=== PATIENT | female | born 1975 | race Hispanic/Latino ===

== ENCOUNTER 2016-05-16 11:44 | Inpatient (IN) ==
[2016-05-16] MEDS ORDERED: ACETAMINOPHEN 325 MG TABLET PO PRN (12:35)
[2016-05-16] MEDS ORDERED: PROMETHAZINE 25 MG/ML VIAL IV PRN (12:35)
[2016-05-16] MEDS ORDERED: ZOLPIDEM 5 MG TABLET PO PRN (12:35)
[2016-05-16] MEDS ORDERED: METOPROLOL SUCCINATE 25 MG TAB.XL.24H PO ONE (12:49)
[2016-05-16] MEDS ORDERED: PANTOPRAZOLE 40 MG TABLET PO ONE (12:50)
[2016-05-16] MEDS: oxyCODONE/APAP 5/325MG TABLET PO PRN ×2 (13:37→19:17)
[2016-05-16] MEDS: 0.9 % SODIUM CHLORIDE 1,000 ML IV SCH (13:40)
[2016-05-16] MEDS: DOXYCYCLINE 100 MG in DEXTROSE 5% IN WATER 100 ML IV SCH ×2 (13:42→23:45)
[2016-05-16 14:00] LABS: Mean Cell Volume 76.2 fL (80.0-100.0); Mean Corpuscular HGB Conc 31.8 g/dL (31.0-36.0); Mean Corpuscular Hemoglobin 24.2 pg (26.0-34.0); Platelet Count 514 K/mcL (140-440); RBC 4.46 M/mcL (4.00-5.20); Red Cell Distribution Width 16.1 % (11.5-14.5)
[2016-05-16 14:21] LABS: Magnesium 1.3 mg/dL (1.6-2.5); Phosphorous 3.9 mg/dL (2.7-4.5)
[2016-05-16 14:24] LABS: C-Reactive Protein 1.4 mg/dl (0.0-0.8)
[2016-05-16 14:29] LABS: ALT/SGPT 12 U/l (0-40); Albumin 3.7 gm/dL (3.2-5.2); Albumin/Globulin Ratio 0.8 (1.0-2.3); Alkaline Phosphatase 89 U/L (39-117); Blood Urea Nitrogen 9 mg/dl (6-20)
[2016-05-16] MEDS ORDERED: POTASSIUM CHLORIDE 40 MEQ in DEXTROSE 5% IN WATER 500 ML IV ONE (14:34)
[2016-05-16 14:46] LABS: Anisocytosis 1+ (NONE SEEN); Band Neutrophils % 1 % (0-10); Basophils % (Manual) 1 % (0-2); Hypochromasia 1+ (NONE SEEN); Lymphocytes % 35 % (15-49); Monocytes % (Manual) 2 % (1-9); Platelet Estimate INCREASED (NORMAL); RBC Morphology ABNORM (NORMAL); Segmented Neutrophils % 61 % (38-78)
[2016-05-16] MEDS: metroNIDAZOLE 500 MG TABLET PO SCH ×2 (17:02→21:06)
[2016-05-16] MEDS: POTASSIUM CHLORIDE 20 MEQ TABLET PO SCH (17:02)
[2016-05-16] MEDS: 0.9 % SODIUM CHLORIDE 10 ML SYRINGE IV SCH ×2 (17:03→21:07)
[2016-05-16] MEDS: HYDROmorphone 2 MG/ML SYRINGE IV PRN (17:09)
[2016-05-16] MEDS: DOCUSATE SODIUM 100 MG CAPSULE PO SCH (21:08)
[2016-05-17] MEDS: oxyCODONE/APAP 5/325MG TABLET PO PRN ×5 (00:07→19:05)
[2016-05-17] MEDS: HYDROmorphone 2 MG/ML SYRINGE IV PRN ×5 (02:55→20:12)
[2016-05-17] MEDS: metroNIDAZOLE 500 MG TABLET PO SCH ×3 (06:02→21:11)
[2016-05-17] MEDS: 0.9 % SODIUM CHLORIDE 10 ML SYRINGE IV SCH ×3 (06:02→22:41)
[2016-05-17 06:30] LABS: Basophils # (Auto) 0 K/mcL (0.0-0.3); Basophils % (Auto) 0.6 % (0.0-2.0); Eosinophils # (Auto) 0.4 K/mcL (0.0-0.7); Eosinophils % (Auto) 4.6 % (0.0-7.0); Granulocytes % (Auto) 50.7 % (38.0-78.0); Lymphocytes % (Auto) 38.2 % (15.5-49.0); Mean Cell Volume 76.6 fL (80.0-100.0); Mean Corpuscular Hemoglobin 24.5 pg (26.0-34.0); Monocytes # (Auto) 0.5 K/mcL (0.1-0.9); Monocytes % (Auto) 5.9 % (1.0-9.0); Platelet Count 397 K/mcL (140-440); RBC 4.22 M/mcL (4.00-5.20); Red Cell Distribution Width 15.6 % (11.5-14.5)
[2016-05-17 07:21] LABS: Blood Urea Nitrogen 11 mg/dl (6-20)
[2016-05-17] MEDS: LISINOPRIL 20 MG TABLET PO SCH (08:32)
[2016-05-17] MEDS: HYDROCHLOROTHIAZIDE 12.5 MG CAPSULE PO SCH (08:32)
[2016-05-17] MEDS: POTASSIUM CHLORIDE 20 MEQ TABLET PO SCH ×2 (08:33→17:37)
[2016-05-17] MEDS: DOCUSATE SODIUM 100 MG CAPSULE PO SCH ×2 (08:33→21:11)
[2016-05-17] MEDS: ENOXAPARIN 40 MG/0.4 ML SYRINGE SQ SCH (08:33)
[2016-05-17] MEDS: 0.9 % SODIUM CHLORIDE 1,000 ML IV SCH (08:33)
[2016-05-17] MEDS: DOXYCYCLINE 100 MG in DEXTROSE 5% IN WATER 100 ML IV SCH ×2 (08:37→21:10)
[2016-05-17] MEDS ORDERED: VANCOMYCIN PER PHARMACY IV ONE (14:04)
--- NOTE | 2016-05-17 14:18 | General Surgery Progress Note ---
Subjective Patient reports: feels better, still having pain, flatus, diarrhea, afebrile Narrative: Note initiated : 05/17/16 at 2:16 pm Service Date, if different from initiated Date: [] Patient: Kaya High 40 y/o F admitted on 05/16/16 for Cellulitis Of Abdominal Wall. Chief Complaint: [`patient is doing better. She has significant painwhich is controlled with IV Dilaudid and oral oxycodone. She has had four diarrheal stoolstoday. HerJP drainage isdecreasing. Thespecimento the lab yesterday was reportedly lost. For some reason the C. difficile study was also canceled] Objective Temp Pulse Resp BP Pulse Ox 97.3 F L 73 20 135/74 95 05/17/16 12:00 05/17/16 12:00 05/17/16 12:00 05/17/16 12:00 05/17/16 12:00 - Additional Data Intake & Output - Last 24 hours: Intake & Output 05/15/16 05/16/16 05/17/16 05/18/16 05:59 05:59 05:59 05:59 Intake Total 1570 / 1570 1544 / 1544 Output Total 40 / 40 32 / 32 Balance 1530 / 1530 1512 / 1512 Weight 303 lb 303 lb - Additional Exam patient appears to be resting quietly Head and neck exam unremarkable Chest clear to auscultation Heartregular rhythm no tachycardia Abdomen distended and diffusely tender with active bowel sounds. The area of skin slough is unchangedand has minimal purulence Extremities without edema lucy Neurologic exam is unremarkable - Labs 05/17/16 04:20 05/17/16 04:20 Diabetes panel 05/16/16 05/17/16 Range/Units 13:05 04:20 Sodium 141 139 (133-145) mmol/L Potassium 2.9 L* 3.5 (3.3-5.1) mmol/L Chloride 98 98 (96-108) mmol/L Carbon Dioxide 27 26 (22-30) mmol/L BUN 9 11 (6-20) mg/dl Creatinine 0.7 0.7 (0.6-1.1) mg/dl Glucose 95 84 (70-105) mg/dL Calcium 8.9 8.2 L (8.6-10.4) mg/dl AST 17 (0-37) U/l ALT 12 (0-40) U/l Alkaline Phosphatase 89 (39-117) U/L Total Protein 8.4 (5.9-8.4) gm/dL Albumin 3.7 (3.2-5.2) gm/dL Calcium panel 05/16/16 05/16/16 05/17/16 Range/Units 13:05 13:05 04:20 Calcium 8.9 8.2 L (8.6-10.4) mg/dl Phosphorus 3.9 (2.7-4.5) mg/dL Albumin 3.7 (3.2-5.2) gm/dL Pituitary panel 05/16/16 05/17/16 Range/Units 13:05 04:20 Sodium 141 139 (133-145) mmol/L Potassium 2.9 L* 3.5 (3.3-5.1) mmol/L Chloride 98 98 (96-108) mmol/L Carbon Dioxide 27 26 (22-30) mmol/L BUN 9 11 (6-20) mg/dl Creatinine 0.7 0.7 (0.6-1.1) mg/dl Glucose 95 84 (70-105) mg/dL Calcium 8.9 8.2 L (8.6-10.4) mg/dl Adrenal panel 05/16/16 05/17/16 Range/Units 13:05 04:20 Sodium 141 139 (133-145) mmol/L Potassium 2.9 L* 3.5 (3.3-5.1) mmol/L Chloride 98 98 (96-108) mmol/L Carbon Dioxide 27 26 (22-30) mmol/L BUN 9 11 (6-20) mg/dl Creatinine 0.7 0.7 (0.6-1.1) mg/dl Glucose 95 84 (70-105) mg/dL Calcium 8.9 8.2 L (8.6-10.4) mg/dl Total Bilirubin 0.4 (0.0-1.0) mg/dL AST 17 (0-37) U/l ALT 12 (0-40) U/l Alkaline Phosphatase 89 (39-117) U/L Total Protein 8.4 (5.9-8.4) gm/dL Albumin 3.7 (3.2-5.2) gm/dL Medical - PN: A/P - Time Spent With Patient Total time spent is greater than 50% in coordination of care (as documented) at patient's floor/unit and/or counseling patient: (1) Abscess of postoperative wound of abdominal wall Status: Acute Assessment and plan: we'll add vancomycin pending culture results Flagyl will bcontinued by mouth until C. difficile titers returned Disposition willbe based on her progress over the next 2 days Current Visit: Yes (2) Depression with anxiety Status: Chronic Current Visit: No (3) Obstructive sleep apnea Status: Chronic Current Visit: No (4) On anticoagulant therapy Problem details: ON ANTICOAGULANT THERAPY SINCE FEBRUARY 2015 Status: Chronic Current Visit: No (5) Pulmonary embolus Problem details: Treated with anticoagulation Status: Chronic Current Visit : No (6) Short bowel syndrome Status: Chronic Current Visit: No
[2016-05-17] MEDS: VANCOMYCIN 1,000 MG in 0.9 % SODIUM CHLORIDE 250 ML IV SCH (14:35)
[2016-05-18] MEDS: VANCOMYCIN 1,000 MG in 0.9 % SODIUM CHLORIDE 250 ML IV SCH (03:34)
[2016-05-18] MEDS: oxyCODONE/APAP 5/325MG TABLET PO PRN ×3 (03:38→13:24)
[2016-05-18] MEDS: 0.9 % SODIUM CHLORIDE 10 ML SYRINGE IV SCH ×2 (05:23→14:27)
[2016-05-18 05:43] LABS: Basophils # (Auto) 0.1 K/mcL (0.0-0.3); Basophils % (Auto) 0.7 % (0.0-2.0); Eosinophils # (Auto) 0.4 K/mcL (0.0-0.7); Granulocytes % (Auto) 60.9 % (38.0-78.0); Lymphocytes # (Auto) 2.2 K/mcL (1.5-4.8); Lymphocytes % (Auto) 28.2 % (15.5-49.0); Mean Corpuscular HGB Conc 32.2 g/dL (31.0-36.0); Mean Corpuscular Hemoglobin 24.1 pg (26.0-34.0); Monocytes # (Auto) 0.4 K/mcL (0.1-0.9); Monocytes % (Auto) 5.2 % (1.0-9.0); Platelet Count 406 K/mcL (140-440); RBC 4.42 M/mcL (4.00-5.20); Red Cell Distribution Width 15.8 % (11.5-14.5)
[2016-05-18 06:03] LABS: Blood Urea Nitrogen 9 mg/dl (6-20)
[2016-05-18] MEDS: metroNIDAZOLE 500 MG TABLET PO SCH ×2 (06:29→14:27)
[2016-05-18] MEDS: HYDROmorphone 2 MG/ML SYRINGE IV PRN (06:31)
[2016-05-18] MEDS: 0.9 % SODIUM CHLORIDE 1,000 ML IV SCH (06:37)
[2016-05-18] MEDS: DOXYCYCLINE 100 MG in DEXTROSE 5% IN WATER 100 ML IV SCH (09:07)
[2016-05-18] MEDS: ENOXAPARIN 40 MG/0.4 ML SYRINGE SQ SCH (09:11)
[2016-05-18] MEDS: POTASSIUM CHLORIDE 20 MEQ TABLET PO SCH (09:12)
[2016-05-18] MEDS: LISINOPRIL 20 MG TABLET PO SCH (09:12)
[2016-05-18] MEDS: HYDROCHLOROTHIAZIDE 12.5 MG CAPSULE PO SCH (09:12)
[2016-05-18] MEDS: DOCUSATE SODIUM 100 MG CAPSULE PO SCH (09:12)
--- NOTE | 2016-05-18 15:29 | General Surgery Progress Note ---
Subjective Patient reports: feels better, still having pain, tolerating a regular diet, flatus, diarrhea, afebrile Narrative: Note initiated : 05/18/16 at 3:26 pm Service Date, if different from initiated Date: [] Patient: Kaya High 40 y/o F admitted on 05/16/16 for Cellulitis Of Abdominal] Patient is stable. She is still having significant abdominal pain but states that it is less than at the time of admission. She is having multiple diarrheal stools but her C. difficile titer is negative. The SAMMI drainage is only growing Staphylococcus aureus This is more than likely the same Staphylococcus that was cultured 3 weeks ago. She is felt to be stable for discharge home with follow-up for pain management. Objective Temp Pulse Resp BP Pulse Ox 98.2 F 80 22 129/82 93 05/18/16 12:00 05/18/16 12:00 05/18/16 12:00 05/18/16 12:00 05/18/16 12:00 - Additional Data Intake & Output - Last 24 hours: Intake & Output 05/16/16 05/17/16 05/18/16 05/19/16 05:59 05:59 05:59 05:59 Intake Total 1570 / 1570 2869 / 2869 320 / 320 Output Total 40 / 40 208 / 208 Balance 1530 / 1530 2661 / 2661 320 / 320 Weight 303 lb 303 lb - Additional Exam HEENT is unremarkable Neck supple Chest--clear to auscultation Heart--regular rate and rhythm no murmur or gallop Abdomen--mildly distended mild diffuse tenderness; good active bowel sounds; SAMMI drainage with purulent drainage; the eschar in the left upper quadrant is beginning to separate; her skin in the midline is healing uneventfully Extremities--no peripheral edema Neurologic exam--no focal deficit - Labs 05/18/16 04:00 05/18/16 04:00 Diabetes panel 05/18/16 Range/Units 04:00 Sodium 141 (133-145) mmol/L Potassium 3.9 (3.3-5.1) mmol/L Chloride 101 (96-108) mmol/L Carbon Dioxide 24 (22-30) mmol/L BUN 9 (6-20) mg/dl Creatinine 0.7 (0.6-1.1) mg/dl Glucose 89 (70-105) mg/dL Calcium 8.3 L (8.6-10.4) mg/dl Calcium panel 05/18/16 Range/Units 04:00 Calcium 8.3 L (8.6-10.4) mg/dl Pituitary panel 05/18/16 Range/Units 04:00 Sodium 141 (133-145) mmol/L Potassium 3.9 (3.3-5.1) mmol/L Chloride 101 (96-108) mmol/L Carbon Dioxide 24 (22-30) mmol/L BUN 9 (6-20) mg/dl Creatinine 0.7 (0.6-1.1) mg/dl Glucose 89 (70-105) mg/dL Calcium 8.3 L (8.6-10.4) mg/dl Adrenal panel 05/18/16 Range/Units 04:00 Sodium 141 (133-145) mmol/L Potassium 3.9 (3.3-5.1) mmol/L Chloride 101 (96-108) mmol/L Carbon Dioxide 24 (22-30) mmol/L BUN 9 (6-20) mg/dl Creatinine 0.7 (0.6-1.1) mg/dl Glucose 89 (70-105) mg/dL Calcium 8.3 L (8.6-10.4) mg/dl Medical - PN: A/P - Time Spent With Patient Total time spent is greater than 50% in coordination of care (as documented) at patient's floor/unit and/or counseling patient: (1) Abscess of postoperative wound of abdominal wall Status: Acute Assessment and plan: patient is stable for discharge Pain will be managed with Percocet and gabapentin She will take Imodium 2 tabs every 6 hours She will follow-up in the office in one week for evaluation of her an excision She is advised to keep a written record of her drainage. Current Visit: Yes (2) Depression with anxiety Status: Chronic Current Visit: No (3) Obstructive sleep apnea Status: Chronic Current Visit: No (4) On anticoagulant therapy Problem details: ON ANTICOAGULANT THERAPY SINCE FEBRUARY 2015 Status: Chronic Current Visit: No (5) Pulmonary embolus Problem details: Treated with anticoagulation Status: Chronic Current Visit : No (6) Short bowel syndrome Status: Chronic Current Visit: No
[2016-05-18] MEDS ORDERED: VANCOMYCIN 1,500 MG in 0.9 % SODIUM CHLORIDE 500 ML IV SCH (17:00)
== END 2016-05-18 16:30 | disposition home or self-care (01) | DRG 863 ==
LOC: MEDSUR
PROVIDERS: ADMIT Family Medicine Adult Medicine; ATTEND Family Medicine Adult Medicine

== ENCOUNTER 2016-07-23 17:08 | Inpatient (IN) ==
--- NOTE | 2016-07-23 18:18 | Emergency Department Note ---
Abdominal Pain HPI - General Chief Complaint: Abdominal Pain Stated Complaint: abdominal pain Time Seen by Provider: 07/23/16 17:11 Source: patient Mode of arrival: ambulatory Limitations: no limitations - History of Present Illness HPI Narrative: Is complaining of pain to the abdominal wall, mainly has had issues with cellulitis and discharge and drainage from her abdominal incision since last January. Has been on antibiotics off and on since November 2014. The. She does complain of diarrhea. Also with usually one bowel movement per hour. Mainly she was doing fairly well until recently, was seen in the office, Dr. Phillips is following and then just the last 24 hours has noticed increased redness and drainage from her SAMMI drain. No fevers reported. Slight nausea, no vomiting. Pain is worsened also. - Related Data Home Medications Medication Instructions Recorded Confirmed buspirone 7.5 mg tablet 7.5 mg PO BID 11/26/15 07/23/16 Lactobacillus [Culturelle] 1 cap PO DAILY 02/01/16 07/23/16 Lisinopril/Hctz 20/12.5MG 1 tab PO HS 02/01/16 07/23/16 [Zestoretic 20/12.5MG] potassium chloride ER 20 mEq 20 meq PO BID 02/18/16 07/23/16 tablet,extended release(part/cryst) rivaroxaban 15 mg tablet 20 mg PO DAILY 02/18/16 07/23/16 Turmeric 1 tab PO DAILY 03/11/16 07/23/16 Gabapentin [Neurontin] 100 mg PO BID 06/06/16 07/23/16 Magnesium Amino Acid Chelate 100 mg PO DAILY 06/09/16 07/23/16 [Magnesium] Metoprolol Succinate [Toprol Xl] 25 mg PO HS 06/09/16 07/23/16 Ondansetron HCl [Zofran] 8 mg PO Q12H PRN 06/09/16 07/23/16 Spironolactone [Aldactone] 25 mg PO DAILY 06/09/16 07/23/16 lorazepam 0.5 mg tablet 0.5 mg BUCCAL BID-TID PRN 06/23/16 07/23/16 sertraline 100 mg tablet 100 mg PO QDAY 06/23/16 07/23/16 Previous Rx's Medication Instructions Recorded Loperamide [Imodium] 2 mg PO Q8H PRN #100 cap 05/18/16 calcium carbonate 500 mg calcium 500 mg PO QDAY #30 cap 06/29/16 (1,250 mg) capsule ranitidine 150 mg capsule 150 mg PO BID #60 cap 06/29/16 doxycycline monohydrate 100 mg 100 mg PO BID #30 cap 07/11/16 capsule fluconazole 200 mg tablet 200 mg PO Q24H #20 tab 07/11/16 ciprofloxacin 500 mg tablet 500 mg PO Q12H #14 tab 07/14/16 oxycodone-acetaminophen 10 mg-325 1 tab PO Q4H #90 tab MDD 6 07/21/16 mg tablet Allergies Allergy/AdvReac Type Severity Reaction Status Date / Time No Known Drug Allergies Allergy Verified 07/21/16 08:34 Review of Systems All systems ED: reviewed and negative except as stated. Abdominal Pain PMH - Past Medical History Attestation: Yes: The following information was validated with the patient. Medical history: Reports: diabetes, GERD, hypertension, pulmonary embolus, other (morbid obesity with weight loss. short-bowel syndrome. incisional hernia. Irritable bowel syndrome. Adnexal mass. Partial small bowel obstruction. ALEXANDR. Vitamin D deficiency.) Psychiatric history: Reports: anxiety, depression, other (On SSRI) [employer] history: Reports: bilateral tubal ligation Family history: Reports: no significant family history - Social History Smoking status: Never smoker Alcohol use: Reports: None Drug use: Reports: none Physical Exam - General Limitations: no limitations General appearance: alert, in no apparent distress - Head Head exam: atraumatic, normocephalic - Eye Eye exam: Present: normal appearance, PERRL, EOMI. Absent: scleral icterus - ENT ENT exam: normal exam, normal oropharynx, mucous membranes moist - Neck Neck exam: Present: normal inspection, trachea midline - Chest Chest inspection: Present: normal inspection - Respiratory Respiratory exam: Present: normal lung sounds bilaterally. Absent: respiratory distress - Cardiovascular Cardiovascular exam: Present: regular rate, normal heart sounds - Abdominal Exam Abdominal exam: Present: soft, distention, tenderness, diminished bowel sounds. Absent: guarding, rebound Abdominal tenderness: Present: suprapubic, mild - Extremities Exam Extremities exam: Present: normal inspection, full ROM - Back Exam Back exam: Present: normal inspection. Absent: CVA tenderness (R), CVA tenderness (L) - Neurological Exam Neurological exam: Present: alert, oriented X3 - Psychiatric Psychiatric exam: Present: normal affect - Skin Skin exam: Present: warm, dry, intact, rash, erythema, other (Erythema and tenderness to the periumbilical area.) Course - Reevaluation(s) Reevaluation #1: We did obtain a stool sample, she has diarrhea. She states about 1 stool per hour, is having ongoing problems with hypokalemia and thus she was given oral potassium and. We also started IV fluids. She received some pain medications, but she states her pain was still fairly significant and of note is that she just had her oxycodone refilled on and this is not holding her pain. Her ultrasound as well as her recent CT was reviewed, apparently she did have a fluid collection which was fairly substantial just one week ago which could not be verified on the ultrasound just yesterday. The. Cellulitis to the abdominal wall is new and thus raises concern that the SAMMI drain is not functioning adequately. I spoke with our hospitalist, as well as general surgeon and we discussed hospital admission to sort out whether she would need a further surgical procedure for drainage or at least IV antibiotics since the oral antibiotics are not working currently for her new a cellulitis Vital Signs Temperature 96.9 F L 07/23/16 17:10 Pulse Rate 89 07/23/16 17:10 Respiratory Rate 16 07/23/16 17:10 Blood Pressure 137/80 07/23/16 17:10 Pulse Oximetry (%) 97 07/23/16 17:10 Temperature 96.9 F L 07/23/16 17:10 Pulse Rate 89 07/23/16 20:34 Respiratory Rate 16 07/23/16 17:10 Blood Pressure 142/70 07/23/16 20:34 Pulse Oximetry (%) 98 07/23/16 20:34 Abdominal Pain - MDM Narrative Medical decision making narrative: final diagnosis is abdominal wall cellulitis, history of morbid obesity, history of diabetes, history of diarrhea, history of chronic abdominal wall drainage - Lab Data Result diagrams: 07/23/16 18:19 07/23/16 18:19 Lab Results 07/23/16 07/23/16 07/23/16 Range/Units 18:19 18:19 19:16 WBC 10.6 (4.5-11.0) K/mcL RBC 4.54 (4.00-5.20) M/mcL Hgb 10.7 L (12.0-15.0) g/dL Hct 33.4 L (36.0-48.0) % MCV 73.5 L (80.0-100.0) fL MCH 23.6 L (26.0-34.0) pg MCHC 32.0 (31.0-36.0) g/dL RDW 16.6 H (11.5-14.5) % Plt Count 349 (140-440) K/mcL MPV 8.9 (7.4-10.4) fL Gran % 64.4 (38.0-78.0) % Lymph % (Auto) 26.2 (15.5-49.0) % [place] % (Auto) 6.1 (1.0-9.0) % Eos % (Auto) 2.9 (0.0-7.0) % Baso % (Auto) 0.4 (0.0-2.0) % Gran # 6.8 (1.8-8.0) K/mcL Lymph # 2.8 (1.5-4.8) K/mcL [place] # 0.6 (0.1-0.9) K/mcL Eos # 0.3 (0.0-0.7) K/mcL Baso # 0 (0.0-0.3) K/mcL ESR 81 H (0-20) mm/hr Sodium 134 (133-145) mmol/L Potassium 2.8 L* (3.3-5.1) mmol/L Chloride 95 L (96-108) mmol/L Carbon Dioxide 26 (22-30) mmol/L Anion Gap 13.0 (8-16) BUN 11 (6-20) mg/dl Creatinine 0.8 (0.6-1.1) mg/dl GFR Calculation 92 Glucose 89 (70-105) mg/dL Calcium 8.3 L (8.6-10.4) mg/dl Total Bilirubin 0.4 (0.0-1.0) mg/dL AST 22 (0-37) U/l ALT 18 (0-40) U/l Alkaline Phosphatase 90 (39-117) U/L C-Reactive Protein (0.0-0.8) mg/dl Total Protein 7.9 (5.9-8.4) gm/dL Albumin 3.7 (3.2-5.2) gm/dL Globulin 4.2 H (2.2-3.7) gm/dL Albumin/Globulin Ratio 0.9 L (1.0-2.3) 07/23/16 Range/Units 19:16 WBC (4.5-11.0) K/mcL RBC (4.00-5.20) M/mcL Hgb (12.0-15.0) g/dL Hct (36.0-48.0) % MCV (80.0-100.0) fL MCH (26.0-34.0) pg MCHC (31.0-36.0) g/dL RDW (11.5-14.5) % Plt Count (140-440) K/mcL MPV (7.4-10.4) fL Gran % (38.0-78.0) % Lymph % (Auto) (15.5-49.0) % [place] % (Auto) (1.0-9.0) % Eos % (Auto) (0.0-7.0) % Baso % (Auto) (0.0-2.0) % Gran # (1.8-8.0) K/mcL Lymph # (1.5-4.8) K/mcL [place] # (0.1-0.9) K/mcL Eos # (0.0-0.7) K/mcL Baso # (0.0-0.3) K/mcL ESR (0-20) mm/hr Sodium (133-145) mmol/L Potassium (3.3-5.1) mmol/L Chloride (96-108) mmol/L Carbon Dioxide (22-30) mmol/L Anion Gap (8-16) BUN (6-20) mg/dl Creatinine (0.6-1.1) mg/dl GFR Calculation Glucose (70-105) mg/dL Calcium (8.6-10.4) mg/dl Total Bilirubin (0.0-1.0) mg/dL AST (0-37) U/l ALT (0-40) U/l Alkaline Phosphatase (39-117) U/L C-Reactive Protein 11.6 H (0.0-0.8) mg/dl Total Protein (5.9-8.4) gm/dL Albumin (3.2-5.2) gm/dL Globulin (2.2-3.7) gm/dL Albumin/Globulin Ratio (1.0-2.3) Disposition Clinical Impression: Abdominal pain Disposition: Xfer As Inpt ([facility]) Condition: Fair Referrals: Luly Ambriz ARNP [Primary Care Provider] -
[2016-07-23] MEDS ORDERED: LACTATED RINGERS 1,000 ML IV ONE (18:19)
[2016-07-23] MEDS ORDERED: HYDROmorphone 2 MG/ML SYRINGE IV ONE (18:19)
[2016-07-23] MEDS ORDERED: ONDANSETRON 4 MG/2 ML VIAL IV ONE (18:19)
[2016-07-23 18:37] LABS: Basophils # (Auto) 0 K/mcL (0.0-0.3); Basophils % (Auto) 0.4 % (0.0-2.0); Eosinophils # (Auto) 0.3 K/mcL (0.0-0.7); Eosinophils % (Auto) 2.9 % (0.0-7.0); Granulocytes % (Auto) 64.4 % (38.0-78.0); Lymphocytes # (Auto) 2.8 K/mcL (1.5-4.8); Lymphocytes % (Auto) 26.2 % (15.5-49.0); Mean Cell Volume 73.5 fL (80.0-100.0); Mean Corpuscular Hemoglobin 23.6 pg (26.0-34.0); Monocytes # (Auto) 0.6 K/mcL (0.1-0.9); Monocytes % (Auto) 6.1 % (1.0-9.0); Platelet Count 349 K/mcL (140-440); RBC 4.54 M/mcL (4.00-5.20); Red Cell Distribution Width 16.6 % (11.5-14.5)
[2016-07-23 19:00] LABS: ALT/SGPT 18 U/l (0-40); Albumin 3.7 gm/dL (3.2-5.2); Albumin/Globulin Ratio 0.9 (1.0-2.3); Alkaline Phosphatase 90 U/L (39-117); Blood Urea Nitrogen 11 mg/dl (6-20)
[2016-07-23] MEDS ORDERED: POTASSIUM CHLORIDE 20 MEQ TABLET PO ONE (19:00)
[2016-07-23] MEDS ORDERED: VANCOMYCIN 1,500 MG in 0.9 % SODIUM CHLORIDE 500 ML IV ONE (19:16)
[2016-07-23] MEDS ORDERED: POTASSIUM CHLORIDE 10 MEQ TABLET PO ONE (19:20)
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
[2016-07-23] MEDS ORDERED: FLUCONAZOLE 200 MG PO SCH (23:38)
[2016-07-23] MEDS ORDERED: ONDANSETRON 4 MG/2 ML VIAL IV PRN (23:38)
[2016-07-23] MEDS ORDERED: PIPERACILLIN SODIUM/TAZOBACTAM 3.375 GM VIAL IV ONE (23:38)
[2016-07-23] MEDS ORDERED: ACETAMINOPHEN 325 MG TABLET PO PRN (23:38)
[2016-07-23] MEDS ORDERED: LOPERAMIDE 2 MG CAPSULE PO PRN (23:38)
[2016-07-23] MEDS: LACTATED RINGERS 1,000 ML IV SCH (23:59)
[2016-07-24] MEDS ORDERED: oxyCODONE/APAP 10/325MG TABLET PO ONE ×2 (00:37→05:31)
[2016-07-24] MEDS ORDERED: FLUCONAZOLE 100 MG TABLET PO ONE (00:38)
[2016-07-24] MEDS: oxyCODONE/APAP 10/325MG TABLET PO SCH ×2 (00:39→05:45)
[2016-07-24] MEDS ORDERED: MAGNESIUM SULFATE 2 GM/50 ML BAG IV ONE ×3 (01:37→08:51)
[2016-07-24] MEDS ORDERED: POTASSIUM CHLORIDE 40 MEQ in DEXTROSE 5% IN WATER 500 ML IV ONE ×2 (01:37→17:18)
[2016-07-24] MEDS ORDERED: POTASSIUM CHLORIDE 20 MEQ/10 ML VIAL IV ONE ×2 (02:24→18:59)
[2016-07-24] MEDS ORDERED: PIPERACILLIN SODIUM/TAZOBACTAM 3.375 GM VIAL IV ONE (05:08)
[2016-07-24] MEDS: PIPERACILLIN SODIUM/TAZOBACTAM 3.375 GM in DEXTROSE 5% IN WATER 50 ML IV SCH ×5 (05:40→23:20)
[2016-07-24 05:45] LABS: Basophils # (Auto) 0 K/mcL (0.0-0.3); Basophils % (Auto) 0.4 % (0.0-2.0); Eosinophils # (Auto) 0.3 K/mcL (0.0-0.7); Eosinophils % (Auto) 3.1 % (0.0-7.0); Granulocytes % (Auto) 64.5 % (38.0-78.0); Lymphocytes # (Auto) 2.3 K/mcL (1.5-4.8); Lymphocytes % (Auto) 26.8 % (15.5-49.0); Mean Corpuscular HGB Conc 32.4 g/dL (31.0-36.0); Monocytes # (Auto) 0.4 K/mcL (0.1-0.9); Monocytes % (Auto) 5.2 % (1.0-9.0); Platelet Count 294 K/mcL (140-440); RBC 4.08 M/mcL (4.00-5.20); Red Cell Distribution Width 16.7 % (11.5-14.5)
[2016-07-24 06:20] LABS: ALT/SGPT 16 U/l (0-40); Albumin 3.5 gm/dL (3.2-5.2); Alkaline Phosphatase 87 U/L (39-117); Bilirubin,Direct < 0.2 mg/dL (0.0-0.3); Blood Urea Nitrogen 8 mg/dl (6-20); Gamma Glutamyl Transpeptidase 53 U/L (5-36); Magnesium 1.9 mg/dL (1.6-2.5); Phosphorous 2.8 mg/dL (2.7-4.5); Uric Acid 6.6 mg/dL (2.5-8.0)
[2016-07-24] MEDS ORDERED: POTASSIUM CHLORIDE 20 MEQ TABLET PO SCH (08:00)
--- NOTE | 2016-07-24 08:09 | Ultrasound Report ---
CLINICAL INFORMATION: Post anterior hernia repair. Postoperative seroma was drained percutaneously TECHNIQUE: Routine ultrasound of the anterior abdominal wall COMPARISON: Previous examination dated 07/22/2016 FINDINGS: There is a drainage catheter near the umbilicus, unchanged Findings consistent with anterior abdominal wall edema or scarring. Irregular hypoechoic abnormalities are unchanged. No well-defined discrete fluid collection or focal abscess. IMPRESSION: 1. No interval change since 07/22/2016. 2. No well-defined focal abscess. Interpreted and Authenticated by: Romel Goodman 07/24/16
--- NOTE | 2016-07-24 08:18 | General Surgery Progress Note ---
Subjective Patient reports: no new complaints, still having pain, voiding w/o difficulty, other (really no difference subjectively overnight.) Narrative: Note initiated : 07/24/16 at 8:16 am Service Date, if different from initiated Date: [] Patient: Kaya High 41 y/o F admitted on 07/23/16 for abdominal pain. Chief Complaint: [] Objective Temp Pulse Resp BP Pulse Ox 98.7 F 69 20 119/73 93 07/24/16 03:38 07/24/16 03:38 07/24/16 03:38 07/24/16 03:38 07/24/16 03:38 - Additional Data Intake & Output - Last 24 hours: Intake & Output 07/22/16 07/23/16 07/24/16 07/25/16 05:59 05:59 05:59 05:59 Intake Total 358 / 1858 Output Total 100 / 100 Balance 258 / 1758 - General physical appearance no distress, obese - Respiratory normal expansion, normal respiratory effort, clear to auscultation - Cardiovascular Cardiovascular exam: Present: normal rate and rhythm - Abdomen surgical scars (exam essentially unchanged from my consult note last night - PERHAPs a little less erythema) - Labs 07/24/16 Unknown 07/24/16 Unknown Diabetes panel 07/24/16 Range/Units Unknown Sodium 138 (133-145) mmol/L Potassium 2.8 L* (3.3-5.1) mmol/L Chloride 99 (96-108) mmol/L Carbon Dioxide 27 (22-30) mmol/L BUN 8 (6-20) mg/dl Creatinine 0.7 (0.6-1.1) mg/dl Glucose 93 (70-105) mg/dL Calcium 8.1 L (8.6-10.4) mg/dl AST 20 (0-37) U/l ALT 16 (0-40) U/l Alkaline Phosphatase 87 (39-117) U/L Total Protein 7.1 (5.9-8.4) gm/dL Albumin 3.5 (3.2-5.2) gm/dL Triglycerides 111 (<150) mg/dl Calcium panel 07/24/16 Range/Units Unknown Calcium 8.1 L (8.6-10.4) mg/dl Phosphorus 2.8 (2.7-4.5) mg/dL Albumin 3.5 (3.2-5.2) gm/dL Pituitary panel 07/24/16 Range/Units Unknown Sodium 138 (133-145) mmol/L Potassium 2.8 L* (3.3-5.1) mmol/L Chloride 99 (96-108) mmol/L Carbon Dioxide 27 (22-30) mmol/L BUN 8 (6-20) mg/dl Creatinine 0.7 (0.6-1.1) mg/dl Glucose 93 (70-105) mg/dL Calcium 8.1 L (8.6-10.4) mg/dl Adrenal panel 07/24/16 Range/Units Unknown Sodium 138 (133-145) mmol/L Potassium 2.8 L* (3.3-5.1) mmol/L Chloride 99 (96-108) mmol/L Carbon Dioxide 27 (22-30) mmol/L BUN 8 (6-20) mg/dl Creatinine 0.7 (0.6-1.1) mg/dl Glucose 93 (70-105) mg/dL Calcium 8.1 L (8.6-10.4) mg/dl Total Bilirubin 0.8 (0.0-1.0) mg/dL AST 20 (0-37) U/l ALT 16 (0-40) U/l Alkaline Phosphatase 87 (39-117) U/L Total Protein 7.1 (5.9-8.4) gm/dL Albumin 3.5 (3.2-5.2) gm/dL Medical - PN: A/P - Time Spent With Patient Total time spent is greater than 50% in coordination of care (as documented) at patient's floor/unit and/or counseling patient: 15 - 24 minutes (1) Abdominal wall cellulitis Problem details: Continue current IV AB No new recommendations Status: Acute Current Visit: Yes (2) History of hernia repair Problem details: 02/05/2016-ventral open Status: Chronic Current Visit: No (3) History of cholecystectomy Status: Chronic Current Visit: No (4) History of exploratory laparotomy Problem details: with extensive lysis of adhesion and resection of left ovarian mass and appendectomy Status: Chronic Current Visit: No (5) Hypokalemia Status: Acute Current Visit: No (6) Morbid obesity Status: Chronic Current Visit: No (7) UTI (urinary tract infection) Status: Acute Current Visit: No
[2016-07-24] MEDS ORDERED: POTASSIUM CHLORIDE 40 MEQ in DEXTROSE 5% IN WATER 250 ML IV ONE (08:44)
[2016-07-24] MEDS ORDERED: SPIRONOLACTONE 25 MG TABLET PO SCH (09:00)
[2016-07-24] MEDS ORDERED: VANCOMYCIN PER PHARMACY IV SCH (09:00)
[2016-07-24] MEDS: VANCOMYCIN 1,500 MG in 0.9 % SODIUM CHLORIDE 500 ML IV SCH ×2 (09:27→21:31)
[2016-07-24] MEDS ORDERED: LORazepam 0.5 MG TABLET PO PRN (09:48)
[2016-07-24] MEDS: FLUCONAZOLE 100 MG TABLET PO SCH (09:52)
[2016-07-24] MEDS: LACTOBACILLUS 1 CAPSULE PO SCH (09:52)
[2016-07-24] MEDS: busPIRone 5 MG TABLET PO SCH ×2 (09:52→20:43)
[2016-07-24] MEDS: SERTRALINE 50 MG TABLET PO SCH (09:52)
[2016-07-24] MEDS: CALCIUM CARBONATE 500 MG TAB.CHEW CHEWED SCH (09:53)
[2016-07-24] MEDS: FAMOTIDINE 20 MG TABLET PO SCH ×2 (09:53→20:43)
[2016-07-24] MEDS: LISINOPRIL 20 MG TABLET PO SCH (09:53)
[2016-07-24] MEDS: oxyCODONE/APAP 10/325MG TABLET PO PRN ×3 (09:53→18:34)
[2016-07-24] MEDS: GABAPENTIN 100 MG CAPSULE PO SCH ×2 (09:53→20:43)
--- NOTE | 2016-07-24 10:00 | Internal Med Progress Note ---
Medical - PN: Subj Patient information: Note initiated : 07/24/16 at 10:00 am Service Date, if different from initiated Date: [] Patient: Kaya High 41 y/o F admitted on 07/23/16 for abdominal pain. Chief Complaint: [] Interval history: 07/23: Ms. High is a 41 year old female who presents with abdominal pain, nausea and vomiting x 2 weeks, The patient has h/o Bowel obstruction / ventral hernia, morbid obesity, and is followed by Dr Phillips as outpatient. The patient has had 2 surgeries last year for her bowel ischemia and ventral hernia. The patient apparently early this year developed a abscess in the ant abdominal wall , which is being managed by PO antibiotics and drain by Dr Phillips. The patient notes that she was not feeling well and had increased abdominal pain x 2 weeks, but CT done 1 week ago was showing improving abcess. The patient over last few days notes worsening redness in the ant abdominal wall, nausea and vomiting as well as chr diarrhea. Abdominal wall pain is associated with fever and chills. Pain worse with activity better with pain meds and rest. The patient was here yesterday with abdominal pain, the usg done did not show any collection, the patient reports however that the region of erythema has doubled since yesterday and she therefore came in. She is on ciprofloxacin as well as doxycycline as outpatient. diflucan for barry. I reviewed her wound cultures available, She has mssa , peptostreptococcus and barry in the wound cultures. The patient also has h/o 2 PE post surgery in the past and is on anticoagulation , labs in ther ER showed low K and low Mg, The patient has these chronically and is followed by Dr Kay in the clinic, she is on chr mg and K supplements. 07/24: Pt seen examined, no acute overnight events, pt is doing well lying comfortably in bed, notes pain is better in the Ant abdominal wall,k USG neg for fluids. COntinue iv vanco and zosyn for now, await cultures, appreciate surgery input. Plan Pertinent ROS: Denies headache, dizziness Denies chest pain, palpitations Denies cough or shortness of breath Abdominal pain present at the site of cellutlitis she denies nausea or vomiting. - Constitutional Vitals: Vital Signs Temp Pulse Resp BP Pulse Ox 98.7 F 69 20 119/73 93 07/24/16 03:38 03/19/17 03:38 07/24/16 03:38 07/24/16 03:38 07/24/16 03:38 Period Temp Pulse Resp BP Sys/Means Pulse Ox Last 24 Hr 98.6 F-98.7 F 69-82 20-22 119-138/69-73 93-96 Intake and Output 07/23/16 07/24/16 07/24/16 21:59 05:59 13:59 Intake Total 358 / 358 Output Total 100 / 100 Balance 258 / 258 Intake & Output: Intake & Output 07/23/16 07/24/16 07/24/16 21:59 05:59 13:59 Intake Total 358 / 358 Output Total 100 / 100 Balance 258 / 258 Intake: Oral 358 / 358 Output: Void Amount 100 / 100 Other: # Voids 3 Exam: Constitutional; Afebrile, cooperative, alert, not in distress. Eyes- No icterus, Pupils equal, reactive, No periorbital swelling Ears- Ext ear normal, hearing normal to conversation. Neck- Midline trachea, supple Respiratory system: Air Entry equal on both sides, No crackles or wheezing, no rhonchi. CVS- Rate rhythm regular, S1,S2 heard, no gallop, no rub. Abdomen- Soft nontender abdomen, no organomegaly, no tenderness, no guarding or rigidity, wounds covered with dressings, the area of erythema is still darian same but the tenderness is improved. 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 Medical - PN: Obj Da - Labs CBC & Chem 7: 07/24/16 Unknown 07/24/16 Unknown Labs: Abnormal Lab Results 07/24/16 07/24/16 Unknown Unknown Hgb 9.8 L Hct 30.2 L MCV 74.0 L MCH 24.0 L RDW 16.7 H Potassium 2.8 L* Calcium 8.1 L GGT 53 H Meds: Medications Acetaminophen (Tylenol) 650 mg PO Q6HP PRN PRN Reason: PAIN/FEVER > 101 Amiloride HCl (Amiloride) 5 mg PO DAILY [facility] Buspirone HCl (Buspar) 7.5 mg PO BID [facility] Last Admin: 07/24/16 09:52 Dose: 7.5 mg Calcium Carbonate/Glycine (Tums) 500 mg CHEWED DAILY [facility] Last Admin: 07/24/16 09:53 Dose: 500 mg Famotidine (Pepcid) 20 mg PO BID [facility] Last Admin: 07/24/16 09:53 Dose: 20 mg Fluconazole (Diflucan) 200 mg PO DAILY [facility] Last Admin: 07/24/16 09:52 Dose: 200 mg Gabapentin (Neurontin) 100 mg PO BID [facility] Last Admin: 07/24/16 09:53 Dose: 100 mg Lactated Ringer's (Lactated Ringers) 1,000 mls @ 75 mls/hr IV .[id number] [facility] Last Admin: 07/23/16 23:59 Dose: 75 mls/hr Piperacillin Sod/Tazobactam (Sod 3.375 gm/ Dextrose) 50 mls @ 100 mls/hr IV Q6H [facility] Last Admin: 07/24/16 05:40 Dose: Not Given Vancomycin HCl 1,500 mg/ (Sodium Chloride) 500 mls @ 333.3 mls/hr IV Q12H [facility] Last Admin: 07/24/16 09:27 Dose: 333.3 mls/hr Lactobacillus Rhamnosus (Culturelle) 1 cap PO DAILY [facility] Last Admin: 07/24/16 09:52 Dose: 1 cap Lisinopril (Zestril) 20 mg PO DAILY [facility] Last Admin: 07/24/16 09:53 Dose: 20 mg Loperamide HCl (Imodium) 2 mg PO Q8HP PRN PRN Reason: Diarrhea Lorazepam (Ativan) 0.5 mg PO Q8-12HP PRN PRN Reason: Anxiety Metoprolol Succinate (Toprol Xl) 25 mg PO HS [facility] Ondansetron HCl (Zofran) 4 mg IV Q4HP PRN PRN Reason: Nausea And Vomiting Oxycodone/Acetaminophen (Percocet 10-325mg) 1 tab PO Q4HP PRN PRN Reason: Pain Last Admin: 07/24/16 09:53 Dose: 1 tab Potassium Chloride (Kdur) 40 meq PO BIDCC [facility] Rivaroxaban (Xarelto) 20 mg PO QPMCC [facility] Sertraline HCl (Zoloft) 100 mg PO DAILY [facility] Last Admin: 07/24/16 09:52 Dose: 100 mg Vancomycin HCl (Vancomycin Per Pharmacy) 1 order IV UD [facility] Medical - PN: A/P - Time Spent With Patient Total time spent is greater than 50% in coordination of care (as documented) at patient's floor/unit and/or counseling patient: (1) Chronic diarrhea Status: Acute Current Visit: Yes (2) Abdominal wall cellulitis Problem details: Continue current IV AB No new recommendations Status: Acute Current Visit: Yes (3) Hypokalemia Status: Acute Current Visit: No (4) Hypomagnesemia Status: Acute Current Visit: No - Narrative A/P Narrative: Abdominal wall cellulitis- Failed out pt treatment, getting worse with spreading erythema, as well as increased output from the drain. Surgery consult appreciated. IV antibiotics. USG abdomen. Will treat with vanco and zosyn till cultures are back. Pt will need atleast 14 days of treatment. I suspect that the barry is a contaminant in the drain, none the less the patient is on diflucan as outpatient, will continue same. Hypokalemia- chr in nature, due to diarrhea as well as hypomagnesemia. Mg levels are 1.9, replace orally and IV, d/c hctz and use only lisinopril 20mg instead of lisinopril hctz combo. Stop Aldactone and start on amiloride as per nephrology plan note, I reviewed this with Dr Kay today. Hypomagnesemia mg 1.9 today likely Due to GI losses, , Replace IV, follow up with nephrology as outpatient. Urine mg is < 1.4. FENA MG cannot be calculated , but it seems less than 2 h/p PE on therapeutic anticoagulation. Diet Regular Activity as tolerated. Code full Medical - PN: Qual - VTE Deep Vein Thrombosis/Pulmonary Embolism Present on Admission: No
[2016-07-24] MEDS: LACTATED RINGERS 1,000 ML IV SCH (14:35)
[2016-07-24] MEDS ORDERED: POTASSIUM CHLORIDE 20 MEQ TABLET PO ONE (14:45)
[2016-07-24 16:44] LABS: Blood Urea Nitrogen 7 mg/dl (6-20)
[2016-07-24] MEDS ORDERED: aMILoride 5 MG TABLET PO ONE (17:19)
[2016-07-24] MEDS ORDERED: RIVAROXABAN 20 MG TABLET PO SCH (17:30)
[2016-07-24] MEDS: POTASSIUM CHLORIDE 20 MEQ TABLET PO SCH (18:26)
[2016-07-24] MEDS ORDERED: METOPROLOL SUCCINATE 25 MG TAB.XL.24H PO SCH (21:00)
[2016-07-24] MEDS ORDERED: HYDROmorphone 2 MG/ML SYRINGE IV PRN (21:46)
[2016-07-24] MEDS ORDERED: HYDROmorphone 2 MG/ML SYRINGE ONE (22:47)
[2016-07-25] MEDS: oxyCODONE/APAP 10/325MG TABLET PO PRN ×5 (00:05→23:18)
[2016-07-25] MEDS ORDERED: HYDROmorphone 2 MG/ML SYRINGE ONE (03:50)
[2016-07-25] MEDS: PIPERACILLIN SODIUM/TAZOBACTAM 3.375 GM in DEXTROSE 5% IN WATER 50 ML IV SCH ×3 (05:16→18:09)
[2016-07-25 06:01] LABS: Basophils # (Auto) 0 K/mcL (0.0-0.3); Basophils % (Auto) 0.6 % (0.0-2.0); Eosinophils # (Auto) 0.4 K/mcL (0.0-0.7); Granulocytes % (Auto) 62.8 % (38.0-78.0); Lymphocytes # (Auto) 1.8 K/mcL (1.5-4.8); Lymphocytes % (Auto) 25.4 % (15.5-49.0); Mean Cell Volume 74.8 fL (80.0-100.0); Mean Corpuscular HGB Conc 31.6 g/dL (31.0-36.0); Mean Corpuscular Hemoglobin 23.6 pg (26.0-34.0); Monocytes # (Auto) 0.4 K/mcL (0.1-0.9); Monocytes % (Auto) 6.2 % (1.0-9.0); Platelet Count 286 K/mcL (140-440); RBC 3.65 M/mcL (4.00-5.20); Red Cell Distribution Width 17.5 % (11.5-14.5)
[2016-07-25 06:17] LABS: ALT/SGPT 12 U/l (0-40); Albumin/Globulin Ratio 0.9 (1.0-2.3); Alkaline Phosphatase 77 U/L (39-117); Bilirubin,Direct < 0.2 mg/dL (0.0-0.3); Blood Urea Nitrogen 7 mg/dl (6-20); Gamma Glutamyl Transpeptidase 46 U/L (5-36); Magnesium 1.7 mg/dL (1.6-2.5); Phosphorous 2.8 mg/dL (2.7-4.5); Uric Acid 4.5 mg/dL (2.5-8.0)
--- NOTE | 2016-07-25 08:10 | General Surgery Progress Note ---
Subjective Patient reports: feels better, tolerating a regular diet, afebrile Narrative: Note initiated : 07/25/16 at 8:09 am Service Date, if different from initiated Date: [] Patient: Kaya High 41 y/o F admitted on 07/23/16 for abdominal pain. Chief Complaint: [] Objective Temp Pulse Resp BP Pulse Ox 96.8 F L 83 16 138/85 96 07/25/16 07:53 07/25/16 07:53 07/25/16 07:53 07/25/16 07:53 07/25/16 07:53 - Additional Data Intake & Output - Last 24 hours: Intake & Output 07/23/16 07/24/16 07/25/16 07/26/16 05:59 05:59 05:59 05:59 Intake Total 358 / 1858 5810 / 5810 50 / 50 Output Total 100 / 100 1280 / 1280 575 / 575 Balance 258 / 1758 4530 / 4530 -525 / -525 Weight 300 lb 8 oz - Abdomen soft (redness markedly diminished - less fela-umbilical induration) - Labs 07/25/16 03:40 07/25/16 03:40 Diabetes panel 07/24/16 07/25/16 Range/Units 15:37 03:40 Sodium 138 139 (133-145) mmol/L Potassium 3.1 L 3.8 (3.3-5.1) mmol/L Chloride 100 102 (96-108) mmol/L Carbon Dioxide 26 25 (22-30) mmol/L BUN 7 7 (6-20) mg/dl Creatinine 0.6 0.6 (0.6-1.1) mg/dl Glucose 105 95 (70-105) mg/dL Calcium 7.9 L 8.1 L (8.6-10.4) mg/dl AST 15 (0-37) U/l ALT 12 (0-40) U/l Alkaline Phosphatase 77 (39-117) U/L Total Protein 6.4 (5.9-8.4) gm/dL Albumin 3.0 L (3.2-5.2) gm/dL Triglycerides 114 (<150) mg/dl Calcium panel 07/24/16 07/25/16 Range/Units 15:37 03:40 Calcium 7.9 L 8.1 L (8.6-10.4) mg/dl Phosphorus 2.8 (2.7-4.5) mg/dL Albumin 3.0 L (3.2-5.2) gm/dL Pituitary panel 07/24/16 07/25/16 Range/Units 15:37 03:40 Sodium 138 139 (133-145) mmol/L Potassium 3.1 L 3.8 (3.3-5.1) mmol/L Chloride 100 102 (96-108) mmol/L Carbon Dioxide 26 25 (22-30) mmol/L BUN 7 7 (6-20) mg/dl Creatinine 0.6 0.6 (0.6-1.1) mg/dl Glucose 105 95 (70-105) mg/dL Calcium 7.9 L 8.1 L (8.6-10.4) mg/dl Adrenal panel 07/24/16 07/25/16 Range/Units 15:37 03:40 Sodium 138 139 (133-145) mmol/L Potassium 3.1 L 3.8 (3.3-5.1) mmol/L Chloride 100 102 (96-108) mmol/L Carbon Dioxide 26 25 (22-30) mmol/L BUN 7 7 (6-20) mg/dl Creatinine 0.6 0.6 (0.6-1.1) mg/dl Glucose 105 95 (70-105) mg/dL Calcium 7.9 L 8.1 L (8.6-10.4) mg/dl Total Bilirubin 0.3 (0.0-1.0) mg/dL AST 15 (0-37) U/l ALT 12 (0-40) U/l Alkaline Phosphatase 77 (39-117) U/L Total Protein 6.4 (5.9-8.4) gm/dL Albumin 3.0 L (3.2-5.2) gm/dL Medical - PN: A/P - Time Spent With Patient Total time spent is greater than 50% in coordination of care (as documented) at patient's floor/unit and/or counseling patient: 15 - 24 minutes (1) Abdominal wall cellulitis Problem details: Continue current IV AB No new recommendations Status: Acute Current Visit: Yes (2) History of hernia repair Problem details: 02/05/2016-ventral open Status: Chronic Current Visit: No (3) History of cholecystectomy Status: Chronic Current Visit: No (4) History of exploratory laparotomy Problem details: with extensive lysis of adhesion and resection of left ovarian mass and appendectomy Status: Chronic Current Visit: No (5) Hypokalemia Status: Acute Current Visit: No (6) Morbid obesity Status: Chronic Current Visit: No (7) UTI (urinary tract infection) Status: Acute Current Visit: No
[2016-07-25] MEDS ORDERED: aMILoride 5 MG TABLET PO SCH (09:00)
[2016-07-25] MEDS ORDERED: MAGNESIUM OXIDE 400 MG TABLET PO SCH (09:00)
[2016-07-25] MEDS: LACTATED RINGERS 1,000 ML IV SCH (09:03)
[2016-07-25] MEDS: CALCIUM CARBONATE 500 MG TAB.CHEW CHEWED SCH (09:04)
[2016-07-25] MEDS: LISINOPRIL 20 MG TABLET PO SCH (09:04)
[2016-07-25] MEDS: POTASSIUM CHLORIDE 20 MEQ TABLET PO SCH ×2 (09:04→18:08)
[2016-07-25] MEDS: busPIRone 5 MG TABLET PO SCH ×2 (09:04→20:49)
[2016-07-25] MEDS: FAMOTIDINE 20 MG TABLET PO SCH ×2 (09:05→20:49)
[2016-07-25] MEDS: SERTRALINE 50 MG TABLET PO SCH (09:05)
[2016-07-25] MEDS: GABAPENTIN 100 MG CAPSULE PO SCH ×2 (09:05→20:49)
[2016-07-25] MEDS: FLUCONAZOLE 100 MG TABLET PO SCH (09:05)
[2016-07-25] MEDS: LACTOBACILLUS 1 CAPSULE PO SCH (09:06)
--- NOTE | 2016-07-25 09:44 | Internal Med Progress Note ---
Medical - PN: Subj Patient information: Note initiated : 07/25/16 at 9:42 am Service Date, if different from initiated Date: [] Patient: Kaya High 41 y/o F admitted on 07/23/16 for Abd Pain/Abd Wall Cellulitis, Chronic Diarrhea. Chief Complaint: [] Interval history: 07/23: Ms. High is a 41 year old female who presents with abdominal pain, nausea and vomiting x 2 weeks, The patient has h/o Bowel obstruction / ventral hernia, morbid obesity, and is followed by Dr Phillips as outpatient. The patient has had 2 surgeries last year for her bowel ischemia and ventral hernia. The patient apparently early this year developed a abscess in the ant abdominal wall , which is being managed by PO antibiotics and drain by Dr Phillips. The patient notes that she was not feeling well and had increased abdominal pain x 2 weeks, but CT done 1 week ago was showing improving abcess. The patient over last few days notes worsening redness in the ant abdominal wall, nausea and vomiting as well as chr diarrhea. Abdominal wall pain is associated with fever and chills. Pain worse with activity better with pain meds and rest. The patient was here yesterday with abdominal pain, the usg done did not show any collection, the patient reports however that the region of erythema has doubled since yesterday and she therefore came in. She is on ciprofloxacin as well as doxycycline as outpatient. diflucan for barry. I reviewed her wound cultures available, She has mssa , peptostreptococcus and barry in the wound cultures. The patient also has h/o 2 PE post surgery in the past and is on anticoagulation , labs in ther ER showed low K and low Mg, The patient has these chronically and is followed by Dr Kay in the clinic, she is on chr mg and K supplements. 07/24: Pt seen examined, no acute overnight events, pt is doing well lying comfortably in bed, notes pain is better in the Ant abdominal wall,k USG neg for fluids. COntinue iv vanco and zosyn for now, await cultures, appreciate surgery input. 07/25: Pt seen examined, no acute overnight events, K is much better, Mg is ok, Pt has Mg loss due to Gi losses, low urinary excretion of Mg. Pt is tolerating po diet well has chr diarrhea, Cdiff is negative She continues to be on vanco and zosyn for now, for Ant abdominal wall cellutlitis Pt microbiology is still pending, can d/c home once microbiology is back on appropriate ABX, may need picc if she has resistant bugs. Pertinent ROS: Denies headache, dizziness Denies chest pain, palpitations Denies cough or shortness of breath Denies abdominal pain, nausea or vomiting. - Constitutional Vitals: Vital Signs Temp Pulse Resp BP Pulse Ox 96.8 F L 83 16 138/85 96 07/25/16 07:53 07/25/16 07:53 07/25/16 07:53 07/25/16 07:53 07/25/16 07:53 Period Temp Pulse Resp BP Sys/Means Pulse Ox Last 24 Hr 96.8 F-98.8 F 67-87 16-20 109-138/58-85 93-98 Intake and Output 07/24/16 07/25/16 07/25/16 21:59 05:59 13:59 Intake Total 1640 / 1640 2620 / 2620 1050 / 1050 Output Total 350 / 350 430 / 430 575 / 575 Balance 1290 / 1290 2190 / 2190 475 / 475 Weight 300 lb 8 oz Intake & Output: Intake & Output 07/24/16 07/25/16 07/25/16 21:59 05:59 13:59 Intake Total 1640 / 1640 2620 / 2620 1050 / 1050 Output Total 350 / 350 430 / 430 575 / 575 Balance 1290 / 1290 2190 / 2190 475 / 475 Weight 300 lb 8 oz Intake: IV 50 / 50 1070 / 1070 1050 / 1050 Lactated Ringers 1,000 ml 1000 / 1000 @ 75 mls/hr IV .[id number] [facility] Rx#:[id number] Dextrose 5% in Water 50 50 / 50 50 / 50 50 / 50 ml @ 100 mls/hr IV Q6H [facility] with Zosyn 3.375 gm Rx#:[id number] Sodium Chloride 0.9% 500 500 / 500 ml @ 333.3 mls/hr IV Q12H [facility] with Vancomycin 1, 500 mg Rx#:[id number] Oral 1590 / 1590 1050 / 1050 Other 500 / 500 Output: Drainage 30 / 30 Right Abdomen 30 / 30 Void Amount 350 / 350 400 / 400 575 / 575 Other: Meal Dinner snack Percent of Meal Consumed 50% 100% Feeding Ability Assist with Tray Set Up Assist with Tray Set Up # Voids 1 # Bowel Movements 1 Exam: Constitutional; Afebrile, cooperative, alert, not in distress. Eyes- No icterus, Pupils equal, reactive, No periorbital swelling Ears- Ext ear normal, hearing normal to conversation. Neck- Midline trachea, supple Respiratory system: Air Entry equal on both sides, No crackles or wheezing, no rhonchi. CVS- Rate rhythm regular, S1,S2 heard, no gallop, no rub. Abdomen- soft, area or erythema much improved, burn wound actively oozing, tenderness only region just above umbilicus. 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 Medical - PN: Obj Da - Labs CBC & Chem 7: 07/25/16 03:40 07/25/16 03:40 Labs: Abnormal Lab Results 07/25/16 07/25/16 07/24/16 03:40 03:40 Unknown RBC 3.65 L Hgb 8.6 L Hct 27.3 L MCV 74.8 L MCH 23.6 L RDW 17.5 H Potassium 2.8 L* Calcium 8.1 L 8.1 L GGT 46 H 53 H Albumin 3.0 L Albumin/Globulin Ratio 0.9 L 07/24/16 07/24/16 Unknown 15:37 RBC Hgb 9.8 L Hct 30.2 L MCV 74.0 L MCH 24.0 L RDW 16.7 H Potassium 3.1 L Calcium 7.9 L GGT Albumin Albumin/Globulin Ratio Meds: Medications Acetaminophen (Tylenol) 650 mg PO Q6HP PRN PRN Reason: PAIN/FEVER > 101 Amiloride HCl (Amiloride) 5 mg PO DAILY [facility] Last Admin: 07/25/16 09:06 Dose: 5 mg Buspirone HCl (Buspar) 7.5 mg PO BID [facility] Last Admin: 07/25/16 09:04 Dose: 7.5 mg Calcium Carbonate/Glycine (Tums) 500 mg CHEWED DAILY [facility] Last Admin: 07/25/16 09:04 Dose: 500 mg Famotidine (Pepcid) 20 mg PO BID [facility] Last Admin: 07/25/16 09:05 Dose: 20 mg Fluconazole (Diflucan) 200 mg PO DAILY [facility] Last Admin: 07/25/16 09:05 Dose: 200 mg Gabapentin (Neurontin) 100 mg PO BID [facility] Last Admin: 07/25/16 09:05 Dose: 100 mg Hydromorphone HCl (Dilaudid) 0.5 mg IV Q4-6HP PRN PRN Reason: Pain Lactated Ringer's (Lactated Ringers) 1,000 mls @ 75 mls/hr IV .[id number] [facility] Last Admin: 07/25/16 09:03 Dose: 75 mls/hr Piperacillin Sod/Tazobactam (Sod 3.375 gm/ Dextrose) 50 mls @ 100 mls/hr IV Q6H [facility] Last Infusion: 07/25/16 06:02 Dose: Infused Vancomycin HCl 1,500 mg/ (Sodium Chloride) 500 mls @ 333.3 mls/hr IV Q12H [facility] Last Infusion: 07/24/16 23:05 Dose: Infused Lactobacillus Rhamnosus (Culturelle) 1 cap PO DAILY [facility] Last Admin: 07/25/16 09:06 Dose: 1 cap Lisinopril (Zestril) 20 mg PO DAILY [facility] Last Admin: 07/25/16 09:04 Dose: 20 mg Loperamide HCl (Imodium) 2 mg PO Q8HP PRN PRN Reason: Diarrhea Last Admin: 07/24/16 20:55 Dose: 2 mg Lorazepam (Ativan) 0.5 mg PO Q8-12HP PRN PRN Reason: Anxiety Last Admin: 07/24/16 22:51 Dose: 0.5 mg Magnesium Oxide (Magnesium Oxide) 400 mg PO BID [facility] Last Admin: 07/25/16 09:05 Dose: 400 mg Metoprolol Succinate (Toprol Xl) 25 mg PO HS [facility] Last Admin: 07/24/16 20:43 Dose: 25 mg Ondansetron HCl (Zofran) 4 mg IV Q4HP PRN PRN Reason: Nausea And Vomiting Last Admin: 07/25/16 05:20 Dose: 4 mg Oxycodone/Acetaminophen (Percocet 10-325mg) 1 tab PO Q4HP PRN PRN Reason: Pain Last Admin: 07/25/16 09:05 Dose: 1 tab [facility] Admin: 07/25/16 09:04 Dose: 40 meq Rivaroxaban (Xarelto) 20 mg PO QPMCC [facility] Last Admin: 07/24/16 20:17 Dose: 20 mg Sertraline HCl (Zoloft) 100 mg PO DAILY [facility] Last Admin: 07/25/16 09:05 Dose: 100 mg Silver Sulfadiazine (Silvadene) 1 dose TOPICAL DAILY [facility] Vancomycin HCl (Vancomycin Per Pharmacy) 1 order IV UD [facility] Medical - PN: A/P - Time Spent With Patient Total time spent is greater than 50% in coordination of care (as documented) at patient's floor/unit and/or counseling patient: (1) Chronic diarrhea Status: Acute Current Visit: Yes (2) Abdominal wall cellulitis Problem details: Continue current IV AB No new recommendations Status: Acute Current Visit: Yes (3) Hypokalemia Status: Acute Current Visit: No (4) Hypomagnesemia Status: Acute Current Visit: No - Narrative A/P Narrative: Abdominal wall cellulitis- Failed out pt treatment, erythema improving, Surgery consult appreciated, USG neg for fluid, continue ABX. Await microbiology Hypokalemia- chr in nature, due to diarrhea as well as hypomagnesemia. K level ok today, on high dose relacement, on amiloride now, Aldactone stopped. Hypomagnesemia mg 1.7 today, pt to be on mag oxide replacement, may worsen diarrhea, will have to monitor same. h/p PE on therapeutic anticoagulation. Diet Regular Activity as tolerated. Code full Ok to transfer to med surg status. Medical - PN: Qual - VTE Deep Vein Thrombosis/Pulmonary Embolism Present on Admission: No
[2016-07-25] MEDS: SILVER SULFADIAZINE CREAM.TOP 25GM TOPICAL SCH (10:14)
[2016-07-25] MEDS: VANCOMYCIN 1,500 MG in 0.9 % SODIUM CHLORIDE 500 ML IV SCH ×2 (10:16→20:49)
[2016-07-25] MEDS ORDERED: IPRATROPIUM/ALBUTEROL 3 ML AMPUL.NEB NEB PRN (12:20)
[2016-07-25] MEDS ORDERED: ACETAMINOPHEN 325 MG TABLET PO PRN (13:39)
[2016-07-25] MEDS ORDERED: LORazepam 0.5 MG TABLET PO PRN (13:39)
[2016-07-25] MEDS ORDERED: ONDANSETRON 4 MG/2 ML VIAL IV PRN (13:39)
[2016-07-25] MEDS ORDERED: VANCOMYCIN PER PHARMACY IV SCH (13:39)
[2016-07-25] MEDS ORDERED: LACTATED RINGERS 1,000 ML IV SCH (13:39)
[2016-07-25] MEDS ORDERED: LOPERAMIDE 2 MG CAPSULE PO PRN (13:39)
[2016-07-25] MEDS: HYDROmorphone 2 MG/ML SYRINGE IV PRN ×2 (16:54→20:48)
[2016-07-25] MEDS ORDERED: RIVAROXABAN 20 MG TABLET PO SCH (17:30)
[2016-07-25] MEDS: MAGNESIUM OXIDE 400 MG TABLET PO SCH (20:49)
[2016-07-25] MEDS ORDERED: METOPROLOL SUCCINATE 25 MG TAB.XL.24H PO SCH (21:00)
[2016-07-26] MEDS: HYDROmorphone 2 MG/ML SYRINGE IV PRN ×3 (01:00→09:52)
[2016-07-26] MEDS: PIPERACILLIN SODIUM/TAZOBACTAM 3.375 GM in DEXTROSE 5% IN WATER 50 ML IV SCH ×3 (01:16→11:54)
[2016-07-26] MEDS: oxyCODONE/APAP 10/325MG TABLET PO PRN ×3 (03:36→11:55)
[2016-07-26 05:34] LABS: Basophils # (Auto) 0 K/mcL (0.0-0.3); Basophils % (Auto) 0.3 % (0.0-2.0); Eosinophils # (Auto) 0.4 K/mcL (0.0-0.7); Eosinophils % (Auto) 6.1 % (0.0-7.0); Granulocytes % (Auto) 54.8 % (38.0-78.0); Lymphocytes # (Auto) 2.1 K/mcL (1.5-4.8); Lymphocytes % (Auto) 32.2 % (15.5-49.0); Mean Cell Volume 74.6 fL (80.0-100.0); Mean Corpuscular HGB Conc 32.2 g/dL (31.0-36.0); Monocytes # (Auto) 0.4 K/mcL (0.1-0.9); Monocytes % (Auto) 6.6 % (1.0-9.0); Platelet Count 290 K/mcL (140-440); RBC 3.46 M/mcL (4.00-5.20); Red Cell Distribution Width 17.3 % (11.5-14.5)
[2016-07-26 06:04] LABS: ALT/SGPT 11 U/l (0-40); Albumin 2.9 gm/dL (3.2-5.2); Albumin/Globulin Ratio 0.8 (1.0-2.3); Alkaline Phosphatase 68 U/L (39-117); Bilirubin,Direct < 0.2 mg/dL (0.0-0.3); Blood Urea Nitrogen 10 mg/dl (6-20); Gamma Glutamyl Transpeptidase 40 U/L (5-36); Magnesium 1.6 mg/dL (1.6-2.5); Phosphorous 3.5 mg/dL (2.7-4.5); Uric Acid 4.2 mg/dL (2.5-8.0)
[2016-07-26] MEDS: POTASSIUM CHLORIDE 20 MEQ TABLET PO SCH (07:58)
--- NOTE | 2016-07-26 08:35 | General Surgery Progress Note ---
Surgical - Auxillary Note - Subjective Patient Information: Note initiated : 07/26/16 at 8:27 am Service Date, if different from initiated Date: [] Patient: Kaya High 41 y/o F admitted on 07/23/16 for Abd Pain/Abd Wall Cellulitis, Chronic Diarrhea. Chief Complaint: [] Patient sitting up in bed eating breakfast. Reports pain at site of abdominal wall induration from cellulitis. Has some intermittent nausea but none currently. Vital Signs Temp Pulse Resp BP Pulse Ox 97.8 F 66 14 108/64 92 07/26/16 06:53 07/26/16 06:53 07/26/16 06:53 07/26/16 06:53 07/26/16 07:33 Period Temp Pulse Resp BP Sys/Means Pulse Ox Last 24 Hr 97.5 F-98.1 F 66-78 14-24 108-127/55-81 92-98 Intake and Output 07/25/16 07/26/16 07/26/16 21:59 05:59 13:59 Intake Total 590 / 590 950 / 950 Output Total Balance 565 / 565 930 / 930 Weight 326 lb 9.6 oz PE: Abdomen: central area of abdomen indurated just above umbilicus; Minimal erythema. SAMMI drain in place with serous output. Partial thickness abdominal wound to left of midline clean with some granulation tissue. A/P: Abdominal wall cellulitis in area of prior mesh repair of hernia. On abx. Cx w / staph--awaiting sensitivities. Continue antibiotic therapy for now.
[2016-07-26] MEDS: GABAPENTIN 100 MG CAPSULE PO SCH (08:44)
[2016-07-26] MEDS: MAGNESIUM OXIDE 400 MG TABLET PO SCH (08:44)
[2016-07-26] MEDS: FAMOTIDINE 20 MG TABLET PO SCH (08:44)
[2016-07-26] MEDS: busPIRone 5 MG TABLET PO SCH (08:46)
[2016-07-26] MEDS ORDERED: LACTOBACILLUS 1 CAPSULE PO SCH (09:00)
[2016-07-26] MEDS ORDERED: LISINOPRIL 20 MG TABLET PO SCH (09:00)
[2016-07-26] MEDS ORDERED: aMILoride 5 MG TABLET PO SCH (09:00)
[2016-07-26] MEDS: VANCOMYCIN 1,500 MG in 0.9 % SODIUM CHLORIDE 500 ML IV SCH (09:00)
[2016-07-26] MEDS ORDERED: FLUCONAZOLE 100 MG TABLET PO SCH (09:00)
[2016-07-26] MEDS ORDERED: CALCIUM CARBONATE 500 MG TAB.CHEW CHEWED SCH (09:00)
[2016-07-26] MEDS ORDERED: SILVER SULFADIAZINE CREAM.TOP 25GM TOPICAL SCH (09:00)
[2016-07-26] MEDS ORDERED: SERTRALINE 50 MG TABLET PO SCH (09:00)
[2016-07-26] MEDS: SILVER SULFADIAZINE CREAM.TOP 25GM TOPICAL SCH (10:00)
--- NOTE | 2016-07-26 11:26 | Discharge Summary ---
Medical - DS: Prov Patient information: Note initiated : 07/26/16 at 11:23 am Service Date, if different from initiated Date: [] Patient: Kaya High 41 y/o F admitted on 07/23/16 for Abd Pain/Abd Wall Cellulitis, Chronic Diarrhea. Chief Complaint: [] Date of admission: 07/23/16 22:47 Discharge date: 07/26/16 Primary care physician: [f_Reg Prim Care Provider] Medical - DS: Meds - Discharge Medications Prescriptions: Amoxicillin/Potassium Clav [Augmentin] 875 mg PO Q12H #14 tablet Lisinopril [Zestril] 20 mg PO DAILY #30 tablet aMILoride [Amiloride] 5 mg PO DAILY #30 tablet Active and Home Medications: Home Medications buspirone 7.5 mg tablet 7.5 mg PO BID 11/26/15 [History Confirmed 07/23/16 Last Taken 06/09/16] Lactobacillus [Culturelle] 1 cap PO DAILY 02/01/16 [History Confirmed 07/23/16 Last Taken 06/09/16] Lisinopril/Hctz 20/12.5MG [Zestoretic 20/12.5MG] 1 tab PO HS 02/01/16 [History Confirmed 07/23/16 Last Taken 06/09/16] potassium chloride ER 20 mEq tablet,extended release(part/cryst) 20 meq PO BID 02/18/16 [History Confirmed 07/24/16 Last Taken 07/22/16 22:00 20 mEq] rivaroxaban 15 mg tablet 20 mg PO DAILY 02/18/16 [History Confirmed 07/24/16 Last Taken 07/22/16 22:00 20 mg] Turmeric 1 tab PO DAILY 03/11/16 [History Confirmed 07/23/16 Last Taken 06/09/16 ] Loperamide [Imodium] 2 mg PO Q8H PRN #100 cap 05/18/16 [Rx Confirmed 07/23/16 Last Taken 06/09/16] Gabapentin [Neurontin] 100 mg PO BID 06/06/16 [History Confirmed 07/23/16 Last Taken 06/09/16] Magnesium Amino Acid Chelate [Magnesium] 100 mg PO DAILY 06/09/16 [History Confirmed 07/23/16 Last Taken 06/09/16] Metoprolol Succinate [Toprol Xl] 25 mg PO HS 06/09/16 [History Confirmed Last Taken 06/09/16] Ondansetron HCl [Zofran] 8 mg PO Q12H PRN 06/09/16 [History Confirmed 07/23/16 Last Taken Unknown] Spironolactone [Aldactone] 25 mg PO DAILY 06/09/16 [History Confirmed 07/23/16 Last Taken 06/09/16] lorazepam 0.5 mg tablet 0.5 mg BUCCAL BID-TID PRN 06/23/16 [History Confirmed Last Taken Unknown] sertraline 100 mg tablet 100 mg PO QDAY 06/23/16 [History Confirmed 07/24/16 Last Taken 07/22/16 22:00 100 mg] calcium carbonate 500 mg calcium (1,250 mg) capsule 500 mg PO QDAY #30 cap 06/29 [Rx Confirmed 07/23/16 Last Taken Unknown] ranitidine 150 mg capsule 150 mg PO BID #60 cap 06/29/16 [Rx Confirmed 07/24/16 Last Taken 07/23/16 10:00] fluconazole 200 mg tablet 200 mg PO Q24H #20 tab 07/11/16 [Rx Confirmed Last Taken Unknown] oxycodone-acetaminophen 10 mg-325 mg tablet 1 tab PO Q4H #90 tab MDD 6 07/21/16 [Rx Confirmed 07/23/16 Last Taken Unknown] Amoxicillin/Potassium Clav [Augmentin] 875 mg PO Q12H #14 tablet 07/26/16 [Rx Last Taken Unknown] Medical - DS: Hosp Hospital course: DISCHARGE DIAGNOSIS * Abdominal wall cellulitis with MSSA infection- Failed out pt treatment, erythema improving, continue Augmentin for additional 7 days along with wound care as outpatient and surgery follow-up * Hypokalemia- chr in nature,resolved. On by mouth magnesium and potassium replacement. * Hypomagnesemia mg 1.6. Continue magnesium oxide 3 times a day * chronic diarrhea-stable * h/p PE on therapeutic anticoagulation n rivaroxaban * hypertension continue lisinopril/metoprolol * Neuropathy continue gabapentin * anxiety disorder continue SSRI/BuSpar BRIEF HOSPITAL COURSE 07/23: Ms. High is a 41 year old female who presents with abdominal pain, nausea and vomiting x 2 weeks, The patient has h/o Bowel obstruction / ventral hernia, morbid obesity, and is followed by Dr Phillips as outpatient. The patient has had 2 surgeries last year for her bowel ischemia and ventral hernia. The patient apparently early this year developed a abscess in the ant abdominal wall , which is being managed by PO antibiotics and drain by Dr Phillips. The patient notes that she was not feeling well and had increased abdominal pain x 2 weeks, but CT done 1 week ago was showing improving abcess. The patient over last few days notes worsening redness in the ant abdominal wall, nausea and vomiting as well as chr diarrhea. Abdominal wall pain is associated with fever and chills. Pain worse with activity better with pain meds and rest. The patient was here yesterday with abdominal pain, the usg done did not show any collection, the patient reports however that the region of erythema has doubled since yesterday and she therefore came in. She is on ciprofloxacin as well as doxycycline as outpatient. diflucan for barry. I reviewed her wound cultures available, She has mssa , peptostreptococcus and barry in the wound cultures. The patient also has h/o 2 PE post surgery in the past and is on anticoagulation , labs in ther ER showed low K and low Mg, The patient has these chronically and is followed by Dr Kay in the clinic, she is on chr mg and K supplements. 07/24: Pt seen examined, no acute overnight events, pt is doing well lying comfortably in bed, notes pain is better in the Ant abdominal wall,k USG neg for fluids. COntinue iv vanco and zosyn for now, await cultures, appreciate surgery input. 07/25: Pt seen examined, no acute overnight events, K is much better, Mg is ok, Pt has Mg loss due to Gi losses, low urinary excretion of Mg. Pt is tolerating po diet well has chr diarrhea, Cdiff is negative She continues to be on vanco and zosyn for now, for Ant abdominal wall cellutlitis Pt microbiology is still pending, can d/c home once microbiology is back on appropriate ABX 07/26- patient doing well. No overnight events. No concerns per staff including fever chills nausea vomiting CP/SOB. pansensitive staph aureus on cultures. Discharge on 7 days oral Augmentin. Continue wound care/dressings as per surgery and wound care recommendations. Follow with nephrology. Discontinuing hydrochlorothiazide/spironolactone as per nephrology recommendations and start amiloride. patient with continued 3 times a day magnesium oxide Discharge diagnosis: . - Time Spent with Patient Total time spent providing and/or coordinating discharge services: Medical - DS: Exam - Constitutional Vitals: Vital Signs Temp Pulse Resp BP Pulse Ox 07/26/16 11:19 97.6 F 64 14 112/71 98 07/26/16 07:33 92 07/26/16 06:53 97.8 F 66 14 108/64 97 07/26/16 03:54 97.5 F L 69 22 121/67 97 07/25/16 23:21 98.1 F 68 24 117/67 98 07/25/16 20:00 97.7 F 78 24 115/72 97 07/25/16 16:00 97.5 F L 20 108/55 96 07/25/16 11:46 97.5 F L 20 127/81 97 Intake and Output 07/25/16 07/26/16 07/26/16 21:59 05:59 13:59 Intake Total 590 / 590 1450 / 1450 920 / 920 Output Total / Balance 565 / 565 1430 / 1430 920 / 920 Intake: IV 50 / 50 550 / 550 Dextrose 5% in Water 50 50 / 50 50 / 50 ml @ 100 mls/hr IV Q6H VANDANA with Zosyn 3.375 gm Rx#:[id number] Sodium Chloride 0.9% 500 500 / 500 ml @ 333.3 mls/hr IV Q12H VANDANA with Vancomycin 1, 500 mg Rx#:[id number] Oral 540 / 540 900 / 900 920 / 920 Output: Drainage Right Abdomen Other: Meal Dinner Breakfast Percent of Meal Consumed 100% 100% Feeding Ability Independent Independent # Voids 1 1 # Bowel Movements 1 Weight 326 lb 9.6 oz Medical - DS: Data Labs on day of discharge: Labs from last 24 hours 07/26/16 07/26/16 04:40 04:40 WBC 6.4 RBC 3.46 L Hgb 8.3 L Hct 25.8 L MCV 74.6 L MCH 24.0 L MCHC 32.2 RDW 17.3 H Plt Count 290 MPV 8.9 Gran % 54.8 Lymph % (Auto) 32.2 Branch % (Auto) 6.6 Eos % (Auto) 6.1 Baso % (Auto) 0.3 Gran # 3.5 Lymph # 2.1 Branch # 0.4 Eos # 0.4 Baso # 0 Sodium 139 Potassium 4.1 Chloride 105 Carbon Dioxide 22 Anion Gap 12.0 BUN 10 Creatinine 0.6 GFR Calculation 114 Glucose 101 Uric Acid 4.2 Calcium 8.3 L Phosphorus 3.5 Magnesium 1.6 Total Bilirubin 0.2 Direct Bilirubin < 0.2 GGT 40 H AST 12 ALT 11 Alkaline Phosphatase 68 Lactate Dehydrogenase 140 Total Protein 6.5 Albumin 2.9 L Globulin 3.6 Albumin/Globulin Ratio 0.8 L Triglycerides 123 Medical - DS: A/P - Patient/Caregiver Discharge Instructions Activity: increase activity as tolerated, resume usual activities as tolerated Diet: Regular Diet Additional Instructions: Follow-up PCP in 5 day follow-up with surgery/Wound care as advised continue wound care recommendations As per surgery and wound physician follow with nephrology in 5 days discontinue thiazide and spironolactone. Continue amiloride as per direction of nephrology I recommend primary care physician to check CBC CMP with magnesium as a posthospital follow-up in 3-5 days Antibiotics for 7 days oral Augmentin continue 3 times a day magnesium oxide Continue aggressive bowel regimen to prevent constipation Continue fall precautions All meals on chair sitting upright at 90 degrees to prevent aspiration Return to ER if worsening fever chills shortness of breath, diarrhea, bleeding Review risk and side effect profile of medications including antibiotics. Side effect may include mild to severe reaction including rash, diarrhea, cdiff and even which can be prevented by close follow-up with PCP and monitoring for side effects Continue diet and activity as advised Discussed importance of medication adherence Please review medication list with patient prior to discharge Please schedule follow-up with PCP/Providers prior to discharge and provide printouts Portions of this chart may have been created with [employer] voice recognition software. Occasional wrong-word or ?sound-like? substitutions may have occurred due to the inherent limitations of voice recognition software. Please read the chart carefully and recognize, using context, where the substitutions have occurred. CC- PCP Prescriptions: Amoxicillin/Potassium Clav [Augmentin] 875 mg PO Q12H #14 tablet Lisinopril [Zestril] 20 mg PO DAILY #30 tablet aMILoride [Amiloride] 5 mg PO DAILY #30 tablet - Follow up Plan Follow up with: Luly Ambriz ARNP [Primary Care Provider] - 08/08/16 2:30 pm Jodi Phillips MD [Physician] - 08/11/16 8:45 am Disposition: Home, Self-Care Prognosis: Fair Rehab Potential: Fair I certify that the patient requires SNF services: No Overall status at discharge: patient is progressing back to baseline Medical - DS: Qual - VTE Deep Vein Thrombosis/Pulmonary Embolism Present on Admission: No
== END 2016-07-26 14:04 | disposition home or self-care (01) | DRG 863 ==
LOC: ED 17:08 → ICU 22:47 → MEDSUR 07-25 16:00
PROVIDERS: ADMIT Internal Medicine; ATTEND Internal Medicine

== ENCOUNTER 2016-08-15 11:34 | Inpatient (IN) ==
[2016-08-15] MEDS ORDERED: ACETAMINOPHEN 325 MG TABLET PO PRN (12:04)
[2016-08-15 13:31] LABS: Mean Cell Volume 74.4 fL (80.0-100.0); Mean Corpuscular HGB Conc 31.7 g/dL (31.0-36.0); Mean Corpuscular Hemoglobin 23.6 pg (26.0-34.0); Platelet Count 475 K/mcL (140-440); RBC 4.96 M/mcL (4.00-5.20); Red Cell Distribution Width 17.5 % (11.5-14.5)
[2016-08-15 13:53] LABS: ALT/SGPT 26 U/l (0-40); Albumin 4.1 gm/dL (3.2-5.2); Albumin/Globulin Ratio 0.9 (1.0-2.3); Alkaline Phosphatase 120 U/L (39-117); Bilirubin,Direct < 0.2 mg/dL (0.0-0.3); Blood Urea Nitrogen 26 mg/dl (6-20); C-Reactive Protein 1.3 mg/dl (0.0-0.8); Gamma Glutamyl Transpeptidase 102 U/L (5-36); Magnesium 1.6 mg/dL (1.6-2.5); Uric Acid 8.3 mg/dL (2.5-8.0)
[2016-08-15 14:36] LABS: Anisocytosis 1+ (NONE SEEN); Eosinophils % (Manual) 1 % (0-7); Hypochromasia 1+ (NONE SEEN); Lymphocytes % 29 % (15-49); Monocytes % (Manual) 3 % (1-12); Platelet Estimate INCREASED (NORMAL); RBC Morphology ABNORM (NORMAL); Segmented Neutrophils % 67 % (38-78)
[2016-08-15] MEDS: PIPERACILLIN SODIUM/TAZOBACTAM 3.375 GM in DEXTROSE 5% IN WATER 50 ML IV SCH ×3 (16:00→23:52)
[2016-08-15] MEDS: 0.9 % SODIUM CHLORIDE 1,000 ML IV SCH (16:00)
[2016-08-15] MEDS: HYDROmorphone 2 MG/ML SYRINGE IV PRN (16:20)
[2016-08-15] MEDS: 0.9 % SODIUM CHLORIDE 10 ML SYRINGE IV SCH ×2 (16:22→22:25)
[2016-08-15] MEDS: PROMETHAZINE 25 MG/ML VIAL IV PRN (16:40)
[2016-08-15] MEDS: VANCOMYCIN 1,000 MG in 0.9 % SODIUM CHLORIDE 250 ML IV SCH (17:31)
[2016-08-15] MEDS: ONDANSETRON ODT 4 MG TABLET SL PRN (17:39)
[2016-08-15] MEDS: RIVAROXABAN 20 MG TABLET PO SCH (18:38)
[2016-08-15] MEDS: POTASSIUM CHLORIDE 20 MEQ TABLET PO SCH (18:38)
[2016-08-15] MEDS: traZODone HCL 50 MG TABLET PO SCH (20:07)
[2016-08-15] MEDS: oxyCODONE/APAP 5/325MG TABLET PO PRN (20:07)
[2016-08-15] MEDS: LORazepam 0.5 MG TABLET PO PRN (20:07)
[2016-08-15] MEDS: MAGNESIUM OXIDE 400 MG TABLET PO SCH (20:07)
[2016-08-15] MEDS: busPIRone 5 MG TABLET PO SCH (20:07)
[2016-08-15] MEDS: METOPROLOL SUCCINATE 25 MG TAB.XL.24H PO SCH (20:07)
[2016-08-15] MEDS: GABAPENTIN 100 MG CAPSULE PO SCH (20:08)
[2016-08-15] MEDS ORDERED: traZODone HCL 50 MG TABLET PO PRN (21:00)
[2016-08-15] MEDS ORDERED: ZOLPIDEM 5 MG TABLET PO PRN (21:00)
[2016-08-16] MEDS: HYDROmorphone 2 MG/ML SYRINGE IV PRN ×5 (00:26→21:43)
[2016-08-16] MEDS: VANCOMYCIN 1,000 MG in 0.9 % SODIUM CHLORIDE 250 ML IV SCH ×3 (01:02→21:35)
[2016-08-16] MEDS: 0.9 % SODIUM CHLORIDE 1,000 ML IV SCH ×4 (01:33→20:22)
[2016-08-16] MEDS: PIPERACILLIN SODIUM/TAZOBACTAM 3.375 GM in DEXTROSE 5% IN WATER 50 ML IV SCH ×3 (05:33→19:43)
[2016-08-16] MEDS: 0.9 % SODIUM CHLORIDE 10 ML SYRINGE IV SCH ×3 (05:38→22:44)
[2016-08-16] MEDS: oxyCODONE/APAP 5/325MG TABLET PO PRN ×3 (07:21→19:07)
[2016-08-16] MEDS: PANTOPRAZOLE 40 MG TABLET PO SCH (07:21)
[2016-08-16] MEDS: ONDANSETRON ODT 4 MG TABLET SL PRN (07:21)
[2016-08-16] MEDS: LOPERAMIDE 2 MG CAPSULE PO PRN (07:21)
[2016-08-16] MEDS: POTASSIUM CHLORIDE 20 MEQ TABLET PO SCH ×3 (08:10→17:11)
[2016-08-16] MEDS: busPIRone 5 MG TABLET PO SCH ×3 (10:06→21:34)
[2016-08-16] MEDS: aMILoride 5 MG TABLET PO SCH ×2 (10:06→13:02)
[2016-08-16] MEDS: MAGNESIUM OXIDE 400 MG TABLET PO SCH ×2 (10:07→21:35)
[2016-08-16] MEDS: LACTOBACILLUS 1 CAPSULE PO SCH ×2 (10:07→13:02)
[2016-08-16] MEDS: GABAPENTIN 100 MG CAPSULE PO SCH ×3 (10:07→21:36)
[2016-08-16] MEDS: CALCIUM CARBONATE 500 MG TAB.CHEW CHEWED SCH ×2 (10:07→13:02)
[2016-08-16] MEDS: LISINOPRIL 20 MG TABLET PO SCH ×2 (10:08→13:03)
[2016-08-16] MEDS: SERTRALINE 50 MG TABLET PO SCH ×2 (10:08→13:05)
[2016-08-16] MEDS: MIDAZOLAM 2 MG/2 ML VIAL IV PRN ×4 (10:35→11:08)
[2016-08-16] MEDS: fentaNYL 100 MCG/2 ML VIAL IV PRN ×4 (10:35→11:08)
[2016-08-16] MEDS ORDERED: LIDOCAINE 1% 20 ML VIAL SQ ONE (12:09)
--- NOTE | 2016-08-16 12:23 | General Surgery Progress Note ---
Subjective Patient reports: feels better, still having pain, tolerating a regular diet, afebrile Narrative: Note initiated : 08/16/16 at 12:21 pm Service Date, if different from initiated Date: [] Patient: Kaya High 41 y/o F admitted on 08/15/16 for Abd Wall Abscess. Chief Complaint: [patient feels better. She hadher large fluid collection in heabdominal wa drained earlier today. This has been sent to the lab for Gram stain culture and fungal stains She has less discomfort in the area. There is no increase in the induration or cellulitis. She does not have nausea. She was afebrile all night.] Objective Temp Pulse Resp BP Pulse Ox 98.3 F 69 17 110/76 97 08/16/16 11:53 08/16/16 11:53 08/16/16 11:53 08/16/16 11:53 08/16/16 11:53 - Additional Data Intake & Output - Last 24 hours: Intake & Output 08/14/16 08/15/16 08/16/16 08/17/16 05:59 05:59 05:59 05:59 Intake Total 1825 / 1825 550 / 550 Output Total Balance 1805 / 1805 550 / 550 Weight 312 lb - Respiratory clear to auscultation - Cardiovascular Cardiovascular exam: Present: normal rate and rhythm, RRR, +S1, +S2 - Abdomen soft, tender, bowel sounds, distended (the area of induration has improved. The drainage is primarily serous.) - Integumentary no rash - Neurologic normal coordination, normal sensation - Musculoskeletal normal gait, normal posture - Psychiatric oriented to time, oriented to person, oriented to place, speech is normal, memory intact - Labs 08/15/16 13:05 08/15/16 13:05 Diabetes panel 08/15/16 Range/Units 13:05 Sodium 138 (133-145) mmol/L Potassium 4.3 (3.3-5.1) mmol/L Chloride 99 (96-108) mmol/L Carbon Dioxide 20 L (22-30) mmol/L BUN 26 H (6-20) mg/dl Creatinine 1.2 H (0.6-1.1) mg/dl Glucose 97 (70-105) mg/dL Calcium 9.5 (8.6-10.4) mg/dl AST 24 (0-37) U/l ALT 26 (0-40) U/l Alkaline Phosphatase 120 H (39-117) U/L Total Protein 8.5 H (5.9-8.4) gm/dL Albumin 4.1 (3.2-5.2) gm/dL Triglycerides 305 H (<150) mg/dl Thyroid panel 08/15/16 Range/Units 13:05 TSH 1.82 (0.27-5.01) uIU/ml Calcium panel 08/15/16 Range/Units 13:05 Calcium 9.5 (8.6-10.4) mg/dl Phosphorus 4.6 H (2.7-4.5) mg/dL Albumin 4.1 (3.2-5.2) gm/dL Pituitary panel 08/15/16 Range/Units 13:05 Sodium 138 (133-145) mmol/L Potassium 4.3 (3.3-5.1) mmol/L Chloride 99 (96-108) mmol/L Carbon Dioxide 20 L (22-30) mmol/L BUN 26 H (6-20) mg/dl Creatinine 1.2 H (0.6-1.1) mg/dl Glucose 97 (70-105) mg/dL Calcium 9.5 (8.6-10.4) mg/dl TSH 1.82 (0.27-5.01) uIU/ml Adrenal panel 08/15/16 Range/Units 13:05 Sodium 138 (133-145) mmol/L Potassium 4.3 (3.3-5.1) mmol/L Chloride 99 (96-108) mmol/L Carbon Dioxide 20 L (22-30) mmol/L BUN 26 H (6-20) mg/dl Creatinine 1.2 H (0.6-1.1) mg/dl Glucose 97 (70-105) mg/dL Calcium 9.5 (8.6-10.4) mg/dl Total Bilirubin 0.4 (0.0-1.0) mg/dL AST 24 (0-37) U/l ALT 26 (0-40) U/l Alkaline Phosphatase 120 H (39-117) U/L Total Protein 8.5 H (5.9-8.4) gm/dL Albumin 4.1 (3.2-5.2) gm/dL Assessment and Plan (1) Abdominal wall abscess at site of surgical wound Problem details: 06/10/2016-full thickness excision of abdominal wall with surgical debridement and primary closure. Status: Acute Assessment and plan: will continue on antibiotic coverage until the culture and sensitivity returns.. Recheck CBC in electrolytes in the morning Current Visit: No (2) Acute pulmonary embolism Status: Acute Current Visit: No (3) Gastroesophageal reflux disease Problem details: on endoscopic and biopsy findings Status: Chronic Current Visit: No - Time Spent With Patient Total time spent is greater than 50% in coordination of care (as documented) at patient's floor/unit and/or counseling patient:
[2016-08-16] MEDS: PROMETHAZINE 25 MG/ML VIAL IV PRN (13:27)
[2016-08-16] MEDS ORDERED: VANCOMYCIN 2,000 MG in 0.9 % SODIUM CHLORIDE 500 ML IV SCH (15:30)
--- NOTE | 2016-08-16 15:59 | Cat Scan Report ---
CLINICAL INFORMATION: Rectus sheath abscess COMPARISON: 08/12/[address] TECHNIQUE: The procedure and risks including possibility of bleeding, infection, and bowel perforation were explained the patient. She understood and wished to proceed. She was given versed and fentanyl in divided doses while blood pressure and pulse oximeter were monitored. She maintained consciousness during the procedure. Total sedation time one hour. Please see medication sheet for dosages. The rectus sheath abscess was first CT localized. The surgical catheter was seen along the posterior margin of the fluid collection but it does not appear to be adequately draining. This catheter was removed and a new entry site was marked in the supraumbilical region at midline. The Camper's fascia was locally anesthetized with 25-gauge spinal needle using 1% lidocaine to the level of the abscess capsule. From an inferior approach, a 17-gauge styletted needle was then placed under CT guidance through the inferior capsule of the fluid collection. A 0.035 J-wire was then coiled in the abscess cavity and the tract was subsequently dilated to 10 Turkmen. A 10 Turkmen pigtail catheter mounted over stiffener was then placed over the guidewire into the cavity. Approximately 50 cc of purulent fluid was aspirated and sent for Gram stain culture and sensitivity. The cavity was gently irrigated with 20 cc aliquots of saline until it was clear. The tube was secured to the skin with adhesive disc and suture and left to gravity bag drainage. Post procedure scanning shows relatively good collapse of the cavity with the volume less than one third of the original collection. IMPRESSION: Successful CT-guided percutaneous placement of a 10 Turkmen pigtail all purpose catheter into a rectus sheath abscess. Approximately 50 cc of purulent fluid was aspirated and sent for Gram stain culture and sensitivity. The tube was then irrigated with aliquots of normal saline until clear. The tube was secured to the skin and left to gravity bag drainage. Orders were written irrigating with 10 cc of normal saline forward and backward every eight hours and report volume output. When the tube output is less than than 5 cc over 24 hours, suggest repeat CT. If the cavity is collapsed and the patient is afebrile, tube may be removed. Interpreted and Authenticated by: Romel Lay 08/16/16
[2016-08-16] MEDS: VANCOMYCIN 500 MG VIAL IR SCH ×2 (16:00→21:37)
[2016-08-16] MEDS: RIVAROXABAN 20 MG TABLET PO SCH (18:30)
[2016-08-16] MEDS: traZODone HCL 50 MG TABLET PO SCH (21:36)
[2016-08-16] MEDS: METOPROLOL SUCCINATE 25 MG TAB.XL.24H PO SCH (21:36)
[2016-08-17] MEDS: PIPERACILLIN SODIUM/TAZOBACTAM 3.375 GM in DEXTROSE 5% IN WATER 50 ML IV SCH ×4 (00:52→18:11)
[2016-08-17] MEDS: oxyCODONE/APAP 5/325MG TABLET PO PRN ×5 (00:54→20:20)
[2016-08-17] MEDS: HYDROmorphone 2 MG/ML SYRINGE IV PRN ×5 (05:25→22:06)
[2016-08-17] MEDS: VANCOMYCIN 500 MG VIAL IR SCH ×3 (05:51→21:29)
[2016-08-17] MEDS: 0.9 % SODIUM CHLORIDE 10 ML SYRINGE IV SCH ×3 (05:53→23:14)
[2016-08-17 05:58] LABS: Basophils # (Auto) 0 K/mcL (0.0-0.3); Basophils % (Auto) 0.4 % (0.0-2.0); Eosinophils # (Auto) 0.3 K/mcL (0.0-0.7); Eosinophils % (Auto) 5.3 % (0.0-7.0); Granulocytes % (Auto) 57.8 % (38.0-78.0); Lymphocytes # (Auto) 1.8 K/mcL (1.5-4.8); Lymphocytes % (Auto) 30.8 % (15.5-49.0); Mean Cell Volume 75.9 fL (80.0-100.0); Mean Corpuscular HGB Conc 31.5 g/dL (31.0-36.0); Mean Corpuscular Hemoglobin 23.9 pg (26.0-34.0); Monocytes # (Auto) 0.3 K/mcL (0.1-0.9); Monocytes % (Auto) 5.7 % (1.0-12.0); Platelet Count 288 K/mcL (140-440); Red Cell Distribution Width 17.5 % (11.5-14.5)
[2016-08-17 06:21] LABS: Blood Urea Nitrogen 12 mg/dl (6-20)
[2016-08-17] MEDS: PANTOPRAZOLE 40 MG TABLET PO SCH (07:14)
[2016-08-17] MEDS: GABAPENTIN 100 MG CAPSULE PO SCH ×3 (08:02→20:19)
[2016-08-17] MEDS: aMILoride 5 MG TABLET PO SCH (08:02)
[2016-08-17] MEDS: SERTRALINE 50 MG TABLET PO SCH (08:02)
[2016-08-17] MEDS: POTASSIUM CHLORIDE 20 MEQ TABLET PO SCH ×3 (08:02→17:43)
[2016-08-17] MEDS: LACTOBACILLUS 1 CAPSULE PO SCH (08:02)
[2016-08-17] MEDS: busPIRone 5 MG TABLET PO SCH ×2 (08:03→20:19)
[2016-08-17] MEDS: MAGNESIUM OXIDE 400 MG TABLET PO SCH ×2 (08:03→20:20)
[2016-08-17] MEDS: CALCIUM CARBONATE 500 MG TAB.CHEW CHEWED SCH (08:03)
[2016-08-17] MEDS: LISINOPRIL 20 MG TABLET PO SCH (10:09)
[2016-08-17] MEDS: VANCOMYCIN 1,000 MG in 0.9 % SODIUM CHLORIDE 250 ML IV SCH ×2 (10:16→21:28)
[2016-08-17] MEDS: 0.9 % SODIUM CHLORIDE 1,000 ML IV SCH ×2 (10:18→16:18)
--- NOTE | 2016-08-17 10:59 | General Surgery Progress Note ---
Subjective Patient reports: feels better, still having pain, tolerating a regular diet, flatus, bowel movement, afebrile Narrative: Note initiated : 08/17/16 at 10:55 am Service Date, if different from initiated Date: [] Patient: Kaya High 41 y/o F admitted on 08/15/16 for Abd Wall Abscess. Chief Complaint: [THE PATIENT FEELS BETTER. sHE HAS SOME PAIN IN THE UPPERABDOMEN TO THE RIGHT OF MIDLINE. sHE ALSO COMPLAINS OF NAUSEA. hER BLOOD PRESSURE IS MILDLY DECREASED TODAY. tHIS MAY BE D TO HER INACTIVITY. CULTURE RESULTS ARE PENDING AT THIS TIME.] Objective Temp Pulse Resp BP Pulse Ox 97.7 F 72 16 118/70 96 08/17/16 07:59 08/17/16 08:14 08/17/16 07:59 08/17/16 08:14 08/17/16 07:59 - Additional Data Intake & Output - Last 24 hours: Intake & Output 08/15/16 08/16/16 08/17/16 08/18/16 05:59 05:59 05:59 05:59 Intake Total 1825 / 1825 3395 / 3395 480 / 480 Output Total 40 / 40 227 / 227 Balance 1805 / 1805 3355 / 3355 253 / 253 Weight 312 lb 314 lb - Additional Exam PATIENT IS LYING IN BED IN NO ACUTE DISTRESS heent NO ABNORMALITIES NOTED nECKSUPPLE NO jvd OR ADENOPATHY cHEST CLEAR TO AUSCULTATION hEART REGULAR RHYTHM MILD BRADYCARDIA aBDOMEN MILDLY OBESE ACTIVE BOWEL SOUNDS TENDERNESSTO RIGHT OF MIDLINE IN THE UPPER INCISION AND RIGHT UPPER QUADRANT WITH FULLNESS IN THAT AREA BUT NO ERYTHEMA. eXTREMITIES NO PERIPHERAL EDEMA - Labs 08/17/16 04:50 08/17/16 04:50 Diabetes panel 08/17/16 Range/Units 04:50 Sodium 138 (133-145) mmol/L Potassium 4.2 (3.3-5.1) mmol/L Chloride 104 (96-108) mmol/L Carbon Dioxide 19 L (22-30) mmol/L BUN 12 (6-20) mg/dl Creatinine 0.8 (0.6-1.1) mg/dl Glucose 87 (70-105) mg/dL Calcium 8.6 (8.6-10.4) mg/dl Calcium panel 08/17/16 Range/Units 04:50 Calcium 8.6 (8.6-10.4) mg/dl Pituitary panel 08/17/16 Range/Units 04:50 Sodium 138 (133-145) mmol/L Potassium 4.2 (3.3-5.1) mmol/L Chloride 104 (96-108) mmol/L Carbon Dioxide 19 L (22-30) mmol/L BUN 12 (6-20) mg/dl Creatinine 0.8 (0.6-1.1) mg/dl Glucose 87 (70-105) mg/dL Calcium 8.6 (8.6-10.4) mg/dl Adrenal panel 08/17/16 Range/Units 04:50 Sodium 138 (133-145) mmol/L Potassium 4.2 (3.3-5.1) mmol/L Chloride 104 (96-108) mmol/L Carbon Dioxide 19 L (22-30) mmol/L BUN 12 (6-20) mg/dl Creatinine 0.8 (0.6-1.1) mg/dl Glucose 87 (70-105) mg/dL Calcium 8.6 (8.6-10.4) mg/dl Assessment and Plan (1) Abdominal wall abscess at site of surgical wound Problem details: 06/10/2016-full thickness excision of abdominal wall with surgical debridement and primary closure. Status: Acute Assessment and plan: will continue on antibiotic coverage until the culture and sensitivity returns.. lisinopril will be withheld until her blood pressure patient is advised to ambulate Current Visit: No (2) Acute pulmonary embolism Status: Acute Current Visit: No (3) Gastroesophageal reflux disease Problem details: on endoscopic and biopsy findings Status: Chronic Current Visit: No - Time Spent With Patient Total time spent is greater than 50% in coordination of care (as documented) at patient's floor/unit and/or counseling patient:
[2016-08-17] MEDS: PROMETHAZINE 25 MG/ML VIAL IV PRN (11:35)
[2016-08-17] MEDS: RIVAROXABAN 20 MG TABLET PO SCH (18:11)
[2016-08-17] MEDS: METOPROLOL SUCCINATE 25 MG TAB.XL.24H PO SCH (20:20)
[2016-08-17] MEDS: traZODone HCL 50 MG TABLET PO SCH (20:20)
[2016-08-17] MEDS: ONDANSETRON ODT 4 MG TABLET SL PRN (20:50)
[2016-08-17] MEDS: LOPERAMIDE 2 MG CAPSULE PO PRN (20:50)
[2016-08-18] MEDS: PIPERACILLIN SODIUM/TAZOBACTAM 3.375 GM in DEXTROSE 5% IN WATER 50 ML IV SCH ×5 (00:08→23:55)
[2016-08-18] MEDS: LORazepam 0.5 MG TABLET PO PRN ×2 (00:17→21:46)
[2016-08-18] MEDS: oxyCODONE/APAP 5/325MG TABLET PO PRN ×4 (00:17→21:45)
[2016-08-18] MEDS: HYDROmorphone 2 MG/ML SYRINGE IV PRN ×6 (03:56→22:44)
[2016-08-18] MEDS: 0.9 % SODIUM CHLORIDE 10 ML SYRINGE IV SCH ×3 (05:32→22:17)
[2016-08-18] MEDS: VANCOMYCIN 500 MG VIAL IR SCH ×3 (05:51→21:35)
[2016-08-18 06:51] LABS: Basophils # (Auto) 0 K/mcL (0.0-0.3); Basophils % (Auto) 0.5 % (0.0-2.0); Eosinophils # (Auto) 0.4 K/mcL (0.0-0.7); Eosinophils % (Auto) 6.7 % (0.0-7.0); Granulocytes % (Auto) 53.8 % (38.0-78.0); Lymphocytes # (Auto) 1.8 K/mcL (1.5-4.8); Lymphocytes % (Auto) 33.4 % (15.5-49.0); Mean Cell Volume 74.9 fL (80.0-100.0); Mean Corpuscular HGB Conc 32.4 g/dL (31.0-36.0); Mean Corpuscular Hemoglobin 24.3 pg (26.0-34.0); Monocytes # (Auto) 0.3 K/mcL (0.1-0.9); Monocytes % (Auto) 5.6 % (1.0-12.0); Platelet Count 300 K/mcL (140-440); RBC 3.92 M/mcL (4.00-5.20)
[2016-08-18] MEDS: POTASSIUM CHLORIDE 20 MEQ TABLET PO SCH ×3 (08:04→16:29)
[2016-08-18] MEDS: PANTOPRAZOLE 40 MG TABLET PO SCH (08:05)
[2016-08-18] MEDS: ONDANSETRON ODT 4 MG TABLET SL PRN (08:05)
[2016-08-18] MEDS: 0.9 % SODIUM CHLORIDE 1,000 ML IV SCH ×4 (08:06→22:23)
[2016-08-18] MEDS: aMILoride 5 MG TABLET PO SCH (08:33)
[2016-08-18] MEDS: GABAPENTIN 100 MG CAPSULE PO SCH ×3 (08:33→21:34)
[2016-08-18] MEDS: CALCIUM CARBONATE 500 MG TAB.CHEW CHEWED SCH (08:33)
[2016-08-18] MEDS: busPIRone 5 MG TABLET PO SCH ×2 (08:34→21:34)
[2016-08-18] MEDS: MAGNESIUM OXIDE 400 MG TABLET PO SCH ×2 (08:35→21:34)
[2016-08-18] MEDS: SERTRALINE 50 MG TABLET PO SCH (08:36)
[2016-08-18] MEDS: VANCOMYCIN 1,000 MG in 0.9 % SODIUM CHLORIDE 250 ML IV SCH ×2 (09:49→21:33)
[2016-08-18] MEDS: LACTOBACILLUS 1 CAPSULE PO SCH (12:12)
--- NOTE | 2016-08-18 13:27 | General Surgery Progress Note ---
Subjective Patient reports: feels better, still having pain, tolerating a regular diet, flatus, bowel movement, afebrile Narrative: Note initiated : 08/18/16 at 12:54 pm Service Date, if different from initiated Date: [] Patient: Kaya High 41 y/o F admitted on 08/15/16 for Abd Wall Abscess. Chief Complaint: [patient is doing well except for pain in the upper abdomen. She has some abdominan the area of the pain. There is no erythema in this area. She does not have nausea or vomiting. The drainage from the irrigations is slightly turbid but not grossly purulent. Cultures grew out methicillin sensitive Staphylococcus which is sensitive to all antibiotics except for Levaquin which it is intermediately sensitive to. We will continue antibiotics for full 5 days and then disc oral antibiotics..] Objective Temp Pulse Resp BP Pulse Ox 97.7 F 77 12 119/80 95 08/18/16 12:37 08/18/16 12:37 08/18/16 12:37 08/18/16 12:37 08/18/16 12:37 - Additional Data Intake & Output - Last 24 hours: Intake & Output 08/16/16 08/17/16 08/18/16 08/19/16 05:59 05:59 05:59 05:59 Intake Total 1825 / 1825 3395 / 3395 5885 / 5885 50 / 50 Output Total 20 / 20 95 / 95 4877 / 4877 Balance 1805 / 1805 3300 / 3300 1008 / 1008 50 / 50 Weight 312 lb 314 lb 313 lb 8 oz - Labs 08/18/16 06:10 08/17/16 04:50 Assessment and Plan (1) Abdominal wall abscess at site of surgical wound Problem details: 06/10/2016-full thickness excision of abdominal wall with surgical debridement and primary closure. Status: Acute Assessment and plan: continue present antibiotics and drainage Current Visit: No (2) Acute pulmonary embolism Status: Acute Current Visit: No (3) Gastroesophageal reflux disease Problem details: on endoscopic and biopsy findings Status: Chronic Current Visit: No - Time Spent With Patient Total time spent is greater than 50% in coordination of care (as documented) at patient's floor/unit and/or counseling patient:
[2016-08-18 16:18] LABS: Blood Urea Nitrogen 6 mg/dl (6-20)
[2016-08-18] MEDS: RIVAROXABAN 20 MG TABLET PO SCH (16:29)
[2016-08-18] MEDS: traZODone HCL 50 MG TABLET PO SCH (21:34)
[2016-08-18] MEDS: METOPROLOL SUCCINATE 25 MG TAB.XL.24H PO SCH (21:34)
[2016-08-18] MEDS: LOPERAMIDE 2 MG CAPSULE PO PRN (21:46)
[2016-08-19] MEDS: 0.9 % SODIUM CHLORIDE 10 ML SYRINGE IV SCH ×3 (05:37→22:04)
[2016-08-19] MEDS: VANCOMYCIN 500 MG VIAL IR SCH ×3 (05:37→21:19)
[2016-08-19] MEDS: PIPERACILLIN SODIUM/TAZOBACTAM 3.375 GM in DEXTROSE 5% IN WATER 50 ML IV SCH ×4 (05:37→23:45)
[2016-08-19] MEDS: 0.9 % SODIUM CHLORIDE 1,000 ML IV SCH ×3 (06:49→23:45)
[2016-08-19 06:56] LABS: Basophils # (Auto) 0 K/mcL (0.0-0.3); Basophils % (Auto) 0.5 % (0.0-2.0); Eosinophils # (Auto) 0.3 K/mcL (0.0-0.7); Eosinophils % (Auto) 6.2 % (0.0-7.0); Granulocytes % (Auto) 55.7 % (38.0-78.0); Lymphocytes # (Auto) 1.5 K/mcL (1.5-4.8); Lymphocytes % (Auto) 31.9 % (15.5-49.0); Mean Cell Volume 74.8 fL (80.0-100.0); Mean Corpuscular HGB Conc 31.7 g/dL (31.0-36.0); Mean Corpuscular Hemoglobin 23.7 pg (26.0-34.0); Monocytes # (Auto) 0.3 K/mcL (0.1-0.9); Monocytes % (Auto) 5.7 % (1.0-12.0); Platelet Count 285 K/mcL (140-440); RBC 4.07 M/mcL (4.00-5.20)
[2016-08-19 07:22] LABS: Blood Urea Nitrogen 6 mg/dl (6-20)
[2016-08-19] MEDS: PANTOPRAZOLE 40 MG TABLET PO SCH (07:38)
[2016-08-19] MEDS: POTASSIUM CHLORIDE 20 MEQ TABLET PO SCH ×3 (07:38→15:29)
[2016-08-19] MEDS: HYDROmorphone 2 MG/ML SYRINGE IV PRN ×2 (08:11→12:50)
[2016-08-19] MEDS: oxyCODONE/APAP 5/325MG TABLET PO PRN ×4 (08:12→22:03)
[2016-08-19] MEDS: ONDANSETRON ODT 4 MG TABLET SL PRN (08:16)
[2016-08-19] MEDS: aMILoride 5 MG TABLET PO SCH (08:55)
[2016-08-19] MEDS: LACTOBACILLUS 1 CAPSULE PO SCH (08:56)
[2016-08-19] MEDS: SERTRALINE 50 MG TABLET PO SCH (08:56)
[2016-08-19] MEDS: busPIRone 5 MG TABLET PO SCH ×2 (08:56→21:18)
[2016-08-19] MEDS: CALCIUM CARBONATE 500 MG TAB.CHEW CHEWED SCH (08:56)
[2016-08-19] MEDS: GABAPENTIN 100 MG CAPSULE PO SCH ×3 (08:57→21:18)
[2016-08-19] MEDS: MAGNESIUM OXIDE 400 MG TABLET PO SCH ×2 (08:57→21:18)
[2016-08-19] MEDS ORDERED: ERGOCALCIFEROL (VITAMIN D2) 50,000 UNIT CAPSULE PO SCH (09:00)
[2016-08-19] MEDS: VANCOMYCIN 1,000 MG in 0.9 % SODIUM CHLORIDE 250 ML IV SCH ×2 (09:22→21:18)
--- NOTE | 2016-08-19 11:15 | General Surgery Progress Note ---
Subjective Patient reports: still having pain, tolerating a regular diet, flatus, bowel movement, nausea, afebrile Narrative: Note initiated : 08/19/16 at 11:12 am Service Date, if different from initiated Date: [] Patient: Kaya High 41 y/o F admitted on 08/15/16 for Abd Wall Abscess. Chief Complaint: [patient is doing well. Her complaints of pain is about the same in spite of the analgesics that she receives. She seems a little depressed today but it is because of her repeat hospitalizations. She is afebrile and her white count remains normal. The drainage in her bag is more serous. The induration of the upper abdn is less now she complains of tenderness in he area. Discussed with her the fact that she will be discharged tmorrow and we will do vancomycin irrigations for at least a month after which the catheter will be pulled.she will be discharged on tetracycline and Septra since this will give her the least likely chance of developin again. Hopefully l be enough to sterilize thegraft and allow it to granulate in.] Objective Temp Pulse Resp BP Pulse Ox 97.7 F 61 17 113/76 96 08/19/16 07:35 08/19/16 07:35 08/19/16 07:35 08/19/16 07:35 08/19/16 07:35 - Additional Data Intake & Output - Last 24 hours: Intake & Output 08/17/16 08/18/16 08/19/16 08/20/16 05:59 05:59 05:59 05:59 Intake Total 3395 / 3395 6885 / 6885 3870 / 3870 300 / 300 Output Total 95 / 95 4877 / 4877 1390 / 1390 575 / 575 Balance 3300 / 3300 2007 2480 / 2480 -275 / -275 Weight 314 lb 313 lb 8 oz 315 lb 8 oz 315 lb 8 oz - Additional Exam abdomen incision looks good, induration in the upper abdomen is much lessand is much softer, she has good active bowel sounds. The drainage catheter is well positioned . Extremities no peripheral edema - Labs 08/19/16 06:23 08/19/16 06:23 Diabetes panel 08/18/16 08/19/16 Range/Units 12:34 06:23 Sodium 140 139 (133-145) mmol/L Potassium 4.0 4.4 (3.3-5.1) mmol/L Chloride 105 104 (96-108) mmol/L Carbon Dioxide 19 L 22 (22-30) mmol/L BUN 6 6 (6-20) mg/dl Creatinine 0.7 0.8 (0.6-1.1) mg/dl Glucose 119 H 101 (70-105) mg/dL Calcium 8.8 8.6 (8.6-10.4) mg/dl Calcium panel 08/18/16 08/19/16 Range/Units 12:34 06:23 Calcium 8.8 8.6 (8.6-10.4) mg/dl Pituitary panel 08/18/16 08/19/16 Range/Units 12:34 06:23 Sodium 140 139 (133-145) mmol/L Potassium 4.0 4.4 (3.3-5.1) mmol/L Chloride 105 104 (96-108) mmol/L Carbon Dioxide 19 L 22 (22-30) mmol/L BUN 6 6 (6-20) mg/dl Creatinine 0.7 0.8 (0.6-1.1) mg/dl Glucose 119 H 101 (70-105) mg/dL Calcium 8.8 8.6 (8.6-10.4) mg/dl Adrenal panel 08/18/16 08/19/16 Range/Units 12:34 06:23 Sodium 140 139 (133-145) mmol/L Potassium 4.0 4.4 (3.3-5.1) mmol/L Chloride 105 104 (96-108) mmol/L Carbon Dioxide 19 L 22 (22-30) mmol/L BUN 6 6 (6-20) mg/dl Creatinine 0.7 0.8 (0.6-1.1) mg/dl Glucose 119 H 101 (70-105) mg/dL Calcium 8.8 8.6 (8.6-10.4) mg/dl Assessment and Plan (1) Abdominal wall abscess at site of surgical wound Problem details: 06/10/2016-full thickness excision of abdominal wall with surgical debridement and primary closure. Status: Acute Assessment and plan: continue present antibiotics and drainage probable discharge in the morning Current Visit: No (2) Acute pulmonary embolism Status: Acute Current Visit: No (3) Gastroesophageal reflux disease Problem details: on endoscopic and biopsy findings Status: Chronic Current Visit: No - Time Spent With Patient Total time spent is greater than 50% in coordination of care (as documented) at patient's floor/unit and/or counseling patient:
[2016-08-19] MEDS: RIVAROXABAN 20 MG TABLET PO SCH (16:30)
[2016-08-19] MEDS: LOPERAMIDE 2 MG CAPSULE PO PRN (21:18)
[2016-08-19] MEDS: traZODone HCL 50 MG TABLET PO SCH (21:18)
[2016-08-19] MEDS: METOPROLOL SUCCINATE 25 MG TAB.XL.24H PO SCH (21:18)
[2016-08-19] MEDS: LORazepam 0.5 MG TABLET PO PRN (22:03)
[2016-08-20] MEDS: PIPERACILLIN SODIUM/TAZOBACTAM 3.375 GM in DEXTROSE 5% IN WATER 50 ML IV SCH ×2 (05:55→13:00)
[2016-08-20] MEDS: VANCOMYCIN 500 MG VIAL IR SCH ×2 (05:55→13:44)
[2016-08-20] MEDS: 0.9 % SODIUM CHLORIDE 10 ML SYRINGE IV SCH ×2 (05:58→13:44)
[2016-08-20] MEDS: POTASSIUM CHLORIDE 20 MEQ TABLET PO SCH ×2 (07:45→12:00)
[2016-08-20] MEDS: PANTOPRAZOLE 40 MG TABLET PO SCH (07:45)
[2016-08-20] MEDS: oxyCODONE/APAP 5/325MG TABLET PO PRN ×2 (07:49→13:47)
[2016-08-20 08:36] LABS: Basophils # (Auto) 0 K/mcL (0.0-0.3); Basophils % (Auto) 0.5 % (0.0-2.0); Eosinophils # (Auto) 0.3 K/mcL (0.0-0.7); Eosinophils % (Auto) 6.1 % (0.0-7.0); Granulocytes % (Auto) 51.6 % (38.0-78.0); Lymphocytes # (Auto) 1.9 K/mcL (1.5-4.8); Lymphocytes % (Auto) 35.4 % (15.5-49.0); Mean Cell Volume 75.1 fL (80.0-100.0); Mean Corpuscular HGB Conc 31.8 g/dL (31.0-36.0); Mean Corpuscular Hemoglobin 23.9 pg (26.0-34.0); Monocytes # (Auto) 0.3 K/mcL (0.1-0.9); Monocytes % (Auto) 6.4 % (1.0-12.0); Platelet Count 283 K/mcL (140-440); RBC 4.13 M/mcL (4.00-5.20)
[2016-08-20] MEDS: SERTRALINE 50 MG TABLET PO SCH (08:36)
[2016-08-20] MEDS: busPIRone 5 MG TABLET PO SCH (08:36)
[2016-08-20] MEDS: CALCIUM CARBONATE 500 MG TAB.CHEW CHEWED SCH (08:36)
[2016-08-20] MEDS: aMILoride 5 MG TABLET PO SCH (08:37)
[2016-08-20] MEDS: LACTOBACILLUS 1 CAPSULE PO SCH (08:37)
[2016-08-20] MEDS: GABAPENTIN 100 MG CAPSULE PO SCH (08:38)
[2016-08-20] MEDS: MAGNESIUM OXIDE 400 MG TABLET PO SCH (08:38)
[2016-08-20 09:23] LABS: Blood Urea Nitrogen 7 mg/dl (6-20)
[2016-08-20] MEDS: VANCOMYCIN 1,000 MG in 0.9 % SODIUM CHLORIDE 250 ML IV SCH (10:51)
--- NOTE | 2016-08-20 13:39 | Discharge Summary ---
Providers - Providers Patient information: Note initiated : 08/20/16 at 1:34 pm Service Date, if different from initiated Date: [] Patient: Kaya High 41 y/o F admitted on 08/15/16 for Abd Wall Abscess. 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 The patient is growing methicillin sensitive Staphylococcus aureus. She has been treated with multiple courses of antibiotics. The area was healing but her drain pulled out and the superior margin of the cavity recurred but it was not adequately drained by the drainage tube. The patient was admitted to have placement o percutaneous drain by radiology. This was done successfully and the area has been irrigated with vancomycin 3 times daily. Her white blood count decreased to normal and she has done very well. She received Zosyn and vancomycin IV also. Her abdominal wall is now much less indurated and she is having less discomfort. She did develop some vulvovaginitisdue to Elise and she will be treated with Diflucan for 7 days. She is otherwise stable and is ready for discharge home. She will be treated with Cleocin and Septra DS for 30 days after which the drain will be discontinued. If she recurs the mesh would have to be removed. Discharge diagnosis: abdominal wall abscess Reason for admission: recurrent abdominal wall abscess Procedures: PERCUTANEOUS DRAINAGE AND IRRIGATION OF ABDOMINAL WALL ABSCESS BY RADIOLOGY Complications: NONE Exam Temp Pulse Resp BP Pulse Ox 97.7 F 69 18 98/59 97 08/20/16 11:24 08/20/16 00:00 08/20/16 11:24 08/20/16 11:24 08/20/16 11:24 - General physical appearance well developed, well nourished, no distress - Eyes PERRL, normal ocular movement - ENT normal pinna, normal nares, normal mucosa, no hearing loss, no congestion - Head Head exam IM: Present: atraumatic, normocephalic - Neck no masses, no bruits, trachea midline, no lymphadectomy, no venous distension - Cardiovascular Cardiovascular exam IM: Present: normal rate and rhythm - Respiratory normal expansion, normal respiratory effort, clear to percussion, clear to auscultation - Abdomen Abdomen: Present: soft, tender (ABDOMEN IS LESS TENDER AND MUCH LESS INDURATED THAN ON ADMISSION. sHE HAS GOOD ACTIVE BOWEL SOUNDS. tHERE ARE NO AREAS OF DRAINAGE. tHE DRAINAGE CATHETER IS INTACT), bowel sounds Hernia: Present: none - Integumentary Present: no rash, no growths, no abnormal pigmentation - Neurologic Present: normal coordination, normal sensation - Musculoskeletal Present: normal gait, normal posture - Psychiatric Present: oriented to time, oriented to person, oriented to place, speech is normal, memory intact Discharge Plan - Patient/Caregiver Discharge Instructions Activity: increase activity as tolerated Diet: Consistent Carbohydrate Additional Instructions: FLUSH CATHETER WITH 20 CC OF VANCOMYCIN SOLUTION TWICE DAILY. aLLOW SOLUTION TO DWELL IN THE CAVITY FOR AT LEAST 30 MINUTES BEFORE PLACING TO DEPENDENT DRAINAGE. fOLLOW-UP IN OFFICE ON monday OF NEXT WEEK Prescriptions: Fluconazole [Diflucan] 100 mg PO ONCE #7 tablet Sulfamethoxazole/Trimethoprim [Bactrim Ds] 1 tab PO BID #60 tablet - Follow up Plan Disposition: Home, Self-Care Prognosis: Good Rehab Potential: Good I certify that the patient requires SNF services.: No Overall status at discharge: patient is not back to baseline Pending Studies Resuscitation Status Full Code Diet Regular Diet Start MonAug 16 Lunch Amiloride HCl (Amiloride) 5 mg PO DAILY [facility] Last Admin: 08/20/16 08:37 Dose: 5 mg Admin: 08/19/16 08:55 Dose: 5 mg Admin: 08/18/16 08:33 Dose: 5 mg Admin: 08/17/16 08:02 Dose: Not Given Admin: 08/16/16 13:02 Dose: 5 mg Admin: 08/16/16 10:06 Dose: Buspirone HCl (Buspar) 7.5 mg PO BID [facility] Last Admin: 08/20/16 08:36 Dose: 7.5 mg Admin: 08/19/16 21:18 Dose: 7.5 mg Admin: 08/19/16 08:56 Dose: 7.5 mg Admin: 08/18/16 21:34 Dose: 7.5 mg Admin: 08/18/16 08:34 Dose: 7.5 mg Admin: 08/17/16 20:19 Dose: 7.5 mg Admin: 08/17/16 08:03 Dose: 7.5 mg Admin: 08/16/16 21:34 Dose: 7.5 mg Admin: 08/16/16 13:05 Dose: 7.5 mg Admin: 08/16/16 10:06 Dose: Admin: 08/15/16 20:07 Dose: 7.5 mg Calcium Carbonate/Glycine (Tums) 500 mg CHEWED DAILY [facility] Last Admin: 08/20/16 08:36 Dose: 500 mg Admin: 08/19/16 08:56 Dose: 500 mg Admin: 08/18/16 08:33 Dose: 500 mg Admin: 08/17/16 08:03 Dose: 500 mg Admin: 08/16/16 13:02 Dose: 500 mg Admin: 08/16/16 10:07 Dose: Ergocalciferol (Drisdol) 50,000 unit PO Fr@0900 [facility] Last Admin: 08/19/16 08:57 Dose: 50,000 unit Gabapentin (Neurontin) 100 mg PO TID [facility] Last Admin: 08/20/16 08:38 Dose: 100 mg Admin: 08/19/16 21:18 Dose: 100 mg Admin: 08/19/16 15:26 Dose: 100 mg Admin: 08/19/16 08:57 Dose: 100 mg Admin: 08/18/16 21:34 Dose: 100 mg Admin: 08/18/16 16:29 Dose: 100 mg Admin: 08/18/16 08:33 Dose: 100 mg Admin: 08/17/16 20:19 Dose: 100 mg Admin: 08/17/16 16:17 Dose: 100 mg Admin: 08/17/16 08:02 Dose: 100 mg Admin: 08/16/16 21:36 Dose: 100 mg Admin: 08/16/16 14:31 Dose: 100 mg Admin: 08/16/16 10:07 Dose: Admin: 08/15/16 20:08 Dose: 100 mg Hydromorphone HCl (Dilaudid) 1 mg IV Q2HP PRN PRN Reason: Pain Last Admin: 08/19/16 08:11 Dose: 1 mg Admin: 08/18/16 22:44 Dose: 1 mg Admin: 08/18/16 19:44 Dose: 1 mg Admin: 08/18/16 16:29 Dose: 1 mg Admin: 08/18/16 12:10 Dose: 1 mg Admin: 08/18/16 08:13 Dose: 1 mg Admin: 08/18/16 03:56 Dose: 1 mg Admin: 08/17/16 22:06 Dose: 1 mg Admin: 08/17/16 16:18 Dose: 1 mg Admin: 08/17/16 11:12 Dose: 1 mg Admin: 08/17/16 07:49 Dose: 1 mg Admin: 08/17/16 05:25 Dose: 1 mg Admin: 08/16/16 21:43 Dose: 1 mg Admin: 08/16/16 17:11 Dose: 1 mg Admin: 08/16/16 14:31 Dose: 1 mg Admin: 08/16/16 09:12 Dose: 1 mg Admin: 08/16/16 00:26 Dose: 1 mg Admin: 08/15/16 16:20 Dose: 1 mg Sodium Chloride (Sodium Chloride 0.9%) 1,000 mls @ 75 mls/hr IV .[id number] [facility] Admin: 08/19/16 23:45 Dose: 75 mls/hr Infusion: 08/19/16 20:09 Dose: 0 mls/hr Admin: 08/19/16 07:44 Dose: Not Given Admin: 08/19/16 06:49 Dose: 75 mls/hr Infusion: 08/19/16 01:35 Dose: 75 mls/hr Admin: 08/18/16 22:23 Dose: Not Given Admin: 08/18/16 12:15 Dose: 75 mls/hr Admin: 08/18/16 08:06 Dose: Not Given Infusion: 08/18/16 05:38 Dose: 75 mls/hr Admin: 08/17/16 16:18 Dose: 75 mls/hr Infusion: 08/17/16 16:18 Dose: 0 mls/hr Admin: 08/17/16 10:18 Dose: Admin: 08/16/16 20:22 Dose: 75 mls/hr Infusion: 08/16/16 20:22 Dose: 75 mls/hr Admin: 08/16/16 14:32 Dose: Not Given Admin: 08/16/16 09:14 Dose: 75 mls/hr Infusion: 08/16/16 05:20 Dose: 75 mls/hr Admin: 08/16/16 01:33 Dose: Not Given Admin: 08/15/16 16:00 Dose: 75 mls/hr Piperacillin Sod/Tazobactam (Sod 3.375 gm/ Dextrose) 50 mls @ 100 mls/hr IV Q6 [facility]ANDANA Last Infusion: 08/20/16 06:25 Dose: 0 mls/hr Admin: 08/20/16 05:55 Dose: 100 mls/hr Infusion: 08/20/16 00:15 Dose: 0 mls/hr Admin: 08/19/16 23:45 Dose: 100 mls/hr Infusion: 08/19/16 17:01 Dose: 0 mls/hr Admin: 08/19/16 16:31 Dose: 100 mls/hr Infusion: 08/19/16 14:52 Dose: 0 mls/hr Admin: 08/19/16 12:14 Dose: 100 mls/hr Infusion: 08/19/16 09:23 Dose: 0 mls/hr Admin: 08/19/16 05:37 Dose: 100 mls/hr Infusion: 08/19/16 00:25 Dose: 0 mls/hr Admin: 08/18/16 23:55 Dose: 100 mls/hr Infusion: 08/18/16 17:00 Dose: 0 mls/hr Admin: 08/18/16 16:30 Dose: 100 mls/hr Infusion: 08/18/16 16:21 Dose: 100 mls/hr Admin: 08/18/16 13:25 Dose: 100 mls/hr Infusion: 08/18/16 12:44 Dose: 0 mls/hr Admin: 08/18/16 05:51 Dose: 100 mls/hr Infusion: 08/18/16 00:38 Dose: 0 mls/hr Admin: 08/18/16 00:08 Dose: 100 mls/hr Infusion: 08/17/16 18:41 Dose: 0 mls/hr Admin: 08/17/16 18:11 Dose: 100 mls/hr Infusion: 08/17/16 16:10 Dose: 0 mls/hr Admin: 08/17/16 14:18 Dose: 100 mls/hr Infusion: 08/17/16 11:13 Dose: 0 mls/hr Admin: 08/17/16 05:53 Dose: 100 mls/hr Infusion: 08/17/16 01:22 Dose: 100 mls/hr Admin: 08/17/16 00:52 Dose: 100 mls/hr Infusion: 08/16/16 20:13 Dose: 100 mls/hr Admin: 08/16/16 19:43 Dose: 100 mls/hr Infusion: 08/16/16 12:30 Dose: 0 mls/hr Admin: 08/16/16 12:00 Dose: 100 mls/hr Infusion: 08/16/16 06:03 Dose: 100 mls/hr Admin: 08/16/16 05:33 Dose: 100 mls/hr Infusion: 08/16/16 05:30 Dose: 0 mls/hr Admin: 08/15/16 23:52 Dose: 100 mls/hr Infusion: 08/15/16 22:25 Dose: 0 mls/hr Admin: 08/15/16 20:07 Dose: 100 mls/hr Infusion: 08/15/16 20:00 Dose: 0 mls/hr Admin: 08/15/16 16:00 Dose: 100 mls/hr Vancomycin HCl 1,000 mg/ (Sodium Chloride) 250 mls @ 250 mls/hr IV Q12 [facility]NA Last Admin: 08/20/16 10:51 Dose: 150 mls/hr Infusion: 08/19/16 22:59 Dose: 150 mls/hr Admin: 08/19/16 21:18 Dose: 150 mls/hr Infusion: 08/19/16 16:36 Dose: 150 mls/hr Admin: 08/19/16 09:22 Dose: 150 mls/hr Infusion: 08/19/16 06:49 Dose: 0 mls/hr Admin: 08/18/16 21:33 Dose: 150 mls/hr Infusion: 08/18/16 16:22 Dose: 150 mls/hr Admin: 08/18/16 09:49 Dose: 150 mls/hr Infusion: 08/17/16 23:09 Dose: 0 mls/hr Admin: 08/17/16 21:28 Dose: 150 mls/hr Infusion: 08/17/16 13:54 Dose: 0 mls/hr Admin: 08/17/16 10:16 Dose: 250 mls/hr Infusion: 08/16/16 22:35 Dose: 250 mls/hr Admin: 08/16/16 21:35 Dose: 250 mls/hr Infusion: 08/16/16 14:05 Dose: 0 mls/hr Admin: 08/16/16 13:01 Dose: 250 mls/hr Infusion: 08/16/16 05:33 Dose: 0 mls/hr Admin: 08/16/16 01:02 Dose: 250 mls/hr Infusion: 08/15/16 20:08 Dose: 0 mls/hr Admin: 08/15/16 17:31 Dose: 250 mls/hr Lactobacillus Rhamnosus (Culturelle) 1 cap PO DAILY [facility] Last Admin: 08/20/16 08:37 Dose: 1 cap Admin: 08/19/16 08:56 Dose: 1 cap Admin: 08/18/16 12:12 Dose: Admin: 08/17/16 08:02 Dose: 1 cap Admin: 08/16/16 13:02 Dose: 1 cap Admin: 08/16/16 10:07 Dose: Loperamide HCl (Imodium) 2 mg PO Q8HP PRN PRN Reason: Diarrhea Last Admin: 08/19/16 21:18 Dose: 2 mg Admin: 08/18/16 21:46 Dose: 2 mg Admin: 08/17/16 20:50 Dose: 2 mg Admin: 08/16/16 07:21 Dose: 2 mg Lorazepam (Ativan) 0.5 mg PO Q8-12HP PRN PRN Reason: Anxiety Last Admin: 08/19/16 22:03 Dose: 0.5 mg Admin: 08/18/16 21:46 Dose: 0.5 mg Admin: 08/18/16 00:17 Dose: 0.5 mg Admin: 08/15/16 20:07 Dose: 0.5 mg Magnesium Oxide (Magnesium Oxide) 400 mg PO BID [facility] Last Admin: 08/20/16 08:38 Dose: 400 mg Admin: 08/19/16 21:18 Dose: 400 mg Admin: 08/19/16 08:57 Dose: 400 mg Admin: 08/18/16 21:34 Dose: 400 mg Admin: 08/18/16 08:35 Dose: 400 mg Admin: 08/17/16 20:20 Dose: 400 mg Admin: 08/17/16 08:03 Dose: 400 mg Admin: 08/16/16 21:35 Dose: 400 mg Admin: 08/16/16 10:07 Dose: Admin: 08/15/16 20:07 Dose: 400 mg Metoprolol Succinate (Toprol Xl) 25 mg PO HS [facility] Last Admin: 08/19/16 21:18 Dose: 25 mg Admin: 08/18/16 21:34 Dose: 25 mg Admin: 08/17/16 20:20 Dose: 25 mg Admin: 08/16/16 21:36 Dose: 25 mg Admin: 08/15/16 20:07 Dose: 25 mg Ondansetron HCl (Zofran Odt) 8 mg SL Q12HP PRN PRN Reason: Nausea Last Admin: 08/19/16 08:16 Dose: 8 mg Admin: 08/18/16 08:05 Dose: 8 mg Admin: 08/17/16 20:50 Dose: 8 mg Admin: 08/16/16 07:21 Dose: 8 mg Admin: 08/15/16 17:39 Dose: 8 mg Oxycodone/Acetaminophen (Percocet 5-325 Mg) 2 tab PO Q4HP PRN PRN Reason: Pain Last Admin: 08/20/16 07:49 Dose: 2 tab Admin: 08/19/16 22:03 Dose: 2 tab Admin: 08/19/16 08:12 Dose: 2 tab Admin: 08/18/16 21:45 Dose: 2 tab Admin: 08/18/16 12:13 Dose: 2 tab Admin: 08/18/16 05:50 Dose: 2 tab Admin: 08/18/16 00:17 Dose: 2 tab Admin: 08/17/16 20:20 Dose: 2 tab Admin: 08/17/16 14:18 Dose: 2 tab Admin: 08/17/16 10:12 Dose: 2 tab Admin: 08/17/16 04:41 Dose: 2 tab Admin: 08/17/16 00:54 Dose: 2 tab Admin: 08/16/16 19:07 Dose: 2 tab Admin: 08/16/16 13:03 Dose: 2 tab Admin: 08/16/16 07:21 Dose: 2 tab Admin: 08/15/16 20:07 Dose: 2 tab Pantoprazole Sodium (Protonix) 40 mg PO QAMAC [facility]NA Last Admin: 08/20/16 07:45 Dose: 40 mg Admin: 08/19/16 07:38 Dose: 40 mg Admin: 08/18/16 08:05 Dose: 40 mg Admin: 04/12/17 07:14 Dose: 40 mg Admin: 08/16/16 07:21 Dose: 40 mg Potassium Chloride (Kdur) 20 meq PO TIDCC [facility] Last Admin: 08/20/16 12:00 Dose: 20 meq Admin: 08/20/16 07:45 Dose: 20 meq Admin: 08/19/16 15:29 Dose: 20 meq Admin: 08/19/16 12:11 Dose: 20 meq Admin: 08/19/16 07:38 Dose: 20 meq Admin: 08/18/16 16:29 Dose: 20 meq Admin: 08/18/16 12:13 Dose: 20 meq Admin: 08/18/16 08:04 Dose: 20 meq Admin: 08/17/16 17:43 Dose: Not Given Admin: 08/17/16 13:54 Dose: Not Given Admin: 08/17/16 08:02 Dose: Not Given Admin: 08/16/16 17:11 Dose: 20 meq Admin: 08/16/16 13:03 Dose: 20 meq Admin: 08/16/16 08:10 Dose: Admin: 08/15/16 18:38 Dose: 20 meq Promethazine HCl (Phenergan) 12.5 mg IV Q6HP PRN PRN Reason: Nausea And Vomiting Last Admin: 08/17/16 11:35 Dose: 12.5 mg Admin: 08/16/16 13:27 Dose: 12.5 mg Admin: 08/15/16 16:40 Dose: 12.5 mg Rivaroxaban (Xarelto) 20 mg PO QPMCC [facility] Last Admin: 08/19/16 16:30 Dose: 20 mg Admin: 08/18/16 16:29 Dose: 20 mg Admin: 08/17/16 18:11 Dose: 20 mg Admin: 08/16/16 18:30 Dose: 20 mg Admin: 08/15/16 18:38 Dose: 20 mg Sertraline HCl (Zoloft) 100 mg PO DAILY [facility] Last Admin: 08/20/16 08:36 Dose: 100 mg Admin: 08/19/16 08:56 Dose: 100 mg Admin: 08/18/16 08:36 Dose: 100 mg Admin: 08/17/16 08:02 Dose: 100 mg Admin: 08/16/16 13:05 Dose: 100 mg Admin: 08/16/16 10:08 Dose: Sodium Chloride (Saline Flush) 10 ml IV Q8 [facility] Last Admin: 08/20/16 05:58 Dose: Not Given Admin: 08/19/16 22:04 Dose: Not Given Admin: 08/19/16 14:16 Dose: Not Given Admin: 08/19/16 05:37 Dose: Not Given Admin: 08/18/16 22:17 Dose: Not Given Admin: 08/18/16 13:26 Dose: Not Given Admin: 08/18/16 05:32 Dose: Not Given Admin: 08/17/16 23:14 Dose: Not Given Admin: 08/17/16 14:19 Dose: Not Given Admin: 08/17/16 05:53 Dose: Not Given Admin: 08/16/16 22:44 Dose: Not Given Admin: 08/16/16 14:32 Dose: Not Given Admin: 08/16/16 05:38 Dose: Not Given Admin: 08/15/16 22:25 Dose: 10 ml Admin: 08/15/16 16:22 Dose: 10 ml Trazodone HCl (Desyrel) 50 mg PO QHS [facility] Last Admin: 08/19/16 21:18 Dose: 50 mg Admin: 08/18/16 21:34 Dose: 50 mg Admin: 08/17/16 20:20 Dose: 50 mg Admin: 08/16/16 21:36 Dose: 50 mg Admin: 08/15/16 20:07 Dose: 50 mg Vancomycin HCl (Vancomycin) 160 mg IR Q8H [facility] Last Admin: 08/20/16 05:55 Dose: 160 mg Admin: 08/19/16 21:19 Dose: 160 mg Admin: 08/19/16 15:26 Dose: 160 mg Admin: 08/19/16 05:37 Dose: 160 mg Admin: 08/18/16 21:35 Dose: 160 mg Admin: 08/18/16 15:49 Dose: 160 mg Admin: 08/18/16 05:51 Dose: 160 mg Admin: 08/17/16 21:29 Dose: 160 mg Admin: 08/17/16 14:19 Dose: 160 mg Admin: 08/17/16 05:51 Dose: 160 mg Admin: 08/16/16 21:37 Dose: 160 mg Admin: 08/16/16 16:00 Dose: 160 mg Shift Summary 04/15/17 04:40 Shift Summary by Maty Holley Pain has been tolerated with 2 tabs Percocet x2 doses so far and warm packs to her abdomen. Pt requested and received Immodium and Ativan with HS meds. Up ad yovany in bathroom. Has had numerous loose stools, c-diff negative, chronic for patient. 18G to LAC infusing NS at 75 mls/hr and intermittent antibiotics. Patent but positional. Alert and oriented, uses call light for needs. Has T- tube to midline abdomen that is instilled with 160 mg Vanco Q8H for 30 minutes, then drained with gravity. Patient performed procedure on self last night as she is going to do it when she goes home. She has an old drain site to the right middle abdomen, covered with mepilex and and old burn to the left middle abdomen, covered with gauze and tagaderm. Plan is for her to d/c home this afternoon. Initialized on 08/20/16 04:40 - END OF NOTE
[2016-08-20] MEDS: 0.9 % SODIUM CHLORIDE 1,000 ML IV SCH (13:51)
[2016-08-20] MEDS ORDERED: oxyCODONE/APAP 5/325MG TABLET PO SCH (14:00)
[2016-08-20] MEDS ORDERED: CLINDAMYCIN 150 MG CAPSULE PO SCH (17:00)
[2016-08-21] MEDS ORDERED: FAMOTIDINE 20 MG TABLET PO SCH (09:00)
[2016-08-21] MEDS ORDERED: TURMERIC PO SCH (09:00)
== END 2016-08-20 16:00 | disposition home or self-care (01) | DRG 920 ==
LOC: MEDSUR 12:58
PROVIDERS: ADMIT Family Medicine Adult Medicine; ATTEND Family Medicine Adult Medicine

== ENCOUNTER 2016-10-24 08:53 | Inpatient (IN) ==
[2016-10-24] MEDS ORDERED: IOPAMIDOL 100 ML BOTTLE IV ONE (08:54)
[2016-10-24] MEDS ORDERED: ONDANSETRON 4 MG/2 ML VIAL IV ONE (09:28)
[2016-10-24] MEDS ORDERED: 0.9 % SODIUM CHLORIDE 1,000 ML IV ONE (09:28)
--- NOTE | 2016-10-24 09:32 | Emergency Department Note ---
Abdominal Pain HPI - General Chief Complaint: Abdominal Pain Stated Complaint: abd pain Time Seen by Provider: 10/24/16 09:17 Source: patient, family Mode of arrival: ambulatory Limitations: no limitations - History of Present Illness HPI Narrative: 41-year-old female who was seen 2 days ago for small amount of drainage from surgical site. He had no nausea vomiting at that time. She states that the past 36 hours she has been having some nausea vomiting and is afebrile appointment to see Dr. Phillips today the surgeon. Approximately 11:00. She was performed at that time which shows a staph some small amount of diarrhea there is been no constipation problems no hematemesis no melena. Denies urgency frequency or dysuria - Related Data Home Medications Medication Instructions Recorded Confirmed buspirone 7.5 mg tablet 7.5 mg PO TID 11/26/15 10/20/16 Lactobacillus [Culturelle] 1 cap PO DAILY 02/01/16 10/20/16 rivaroxaban 15 mg tablet 20 mg PO DAILY 02/18/16 10/20/16 Turmeric 1 tab PO DAILY 03/11/16 10/20/16 Metoprolol Succinate [Toprol Xl] 25 mg PO HS 06/09/16 10/20/16 Ondansetron HCl [Zofran] 8 mg PO Q12H PRN 06/09/16 10/20/16 lorazepam 0.5 mg tablet 0.5 mg BUCCAL BID-TID PRN 06/23/16 10/20/16 sertraline 100 mg tablet 100 mg PO QDAY 06/23/16 10/20/16 trazodone 50 mg tablet 50 mg PO QHS 08/11/16 10/20/16 magnesium oxide 400 mg tablet 400 mg PO BID tab 09/20/16 10/20/16 potassium chloride ER 20 mEq 20 meq PO BID tab 09/20/16 10/20/16 tablet,extended release(part/cryst) gabapentin 100 mg capsule 600 mg PO TID cap 10/04/16 10/20/16 Previous Rx's Medication Instructions Recorded Loperamide [Imodium] 2 mg PO Q8H PRN #100 cap 05/18/16 calcium carbonate 500 mg calcium 500 mg PO QDAY #30 cap 06/29/16 (1,250 mg) capsule ergocalciferol (vitamin D2) 50,000 50,000 unit PO QWEEK #16 cap 07/28/16 unit capsule amiloride 5 mg tablet 5 mg PO QDAY #30 tab 09/19/16 famotidine 20 mg tablet 20 mg PO QDAY #30 tab 09/19/16 lisinopril 20 mg tablet 10 mg PO BID #60 tab 09/19/16 ranitidine 150 mg tablet 150 mg PO BID #60 tab 09/19/16 oxycodone-acetaminophen 5 mg-325 2 tab PO q6h #100 tab 10/17/16 mg tablet sulfamethoxazole 800 1 tab PO BID #60 tab 10/17/16 mg-trimethoprim 160 mg tablet clindamycin 300 mg capsule 300 mg PO QID #60 cap 10/20/16 Allergies Allergy/AdvReac Type Severity Reaction Status Date / Time No Known Drug Allergies Allergy Verified 10/20/16 08:25 Review of Systems All systems ED: reviewed and negative except as stated. Constitutional: Denies: fever, chills Eyes: Denies: eye pain ENT ED: Denies: ear pain Cardiovascular: Denies: chest pain Respiratory: Denies: cough Gastrointestinal: Reports: other (small Amount of drainage from the surgical site on the right). 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 Absent: trachea midline - Chest Chest inspection: Present: normal inspection, symmetric chest wall rise. Absent : tenderness - Respiratory Respiratory exam: Present: normal lung sounds bilaterally. Absent: respiratory distress, wheezes - Cardiovascular Cardiovascular exam: Present: regular rate, normal rhythm. Absent: bradycardia - Abdominal Exam Abdominal exam: Present: soft, normal bowel sounds. Absent: distention, tenderness, guarding, rebound, rigidity - Extremities Exam Extremities exam: Present: normal inspection, full ROM - Back Exam Back exam: Present: normal inspection, full ROM - Neurological Exam Neurological exam: Present: alert, oriented X3 - Psychiatric Psychiatric exam: Present: normal affect, normal mood - Skin Skin exam: Present: warm Course Vital Signs Temperature 96.1 F L 10/24/16 08:54 Pulse Rate 98 H 10/24/16 08:54 Respiratory Rate 20 10/24/16 08:54 Blood Pressure 144/100 10/24/16 08:54 Pulse Oximetry (%) 98 10/24/16 08:54 Temperature 96.1 F L 10/24/16 08:54 Pulse Rate 79 10/24/16 11:42 Respiratory Rate 20 10/24/16 08:54 Blood Pressure 130/75 10/24/16 11:31 Pulse Oximetry (%) 95 10/24/16 11:42 Abdominal Pain - MDM Narrative Medical decision making narrative: wbc is 11,200. CT reveals increase size of abcess and tube has moved not draining according to radiologist. Dr Phillips called and pt to be admitted - Lab Data Result diagrams: 10/24/16 09:32 Lab Results 10/24/16 10/24/16 Range/Units 09:32 09:32 WBC 11.2 H (4.5-11.0) K/mcL RBC 4.47 (4.00-5.20) M/mcL Hgb 10.7 L (12.0-15.0) g/dL Hct 32.8 L (36.0-48.0) % POC Hct 34.0 L (36.0-48.0) % MCV 73.4 L (80.0-100.0) fL MCH 23.9 L (26.0-34.0) pg MCHC 32.5 (31.0-36.0) g/dL RDW 16.8 H (11.5-14.5) % Plt Count 484 H (140-440) K/mcL MPV 8.3 (7.4-10.4) fL Total Counted 100 Seg Neutrophils % 66 (38-78) % Band Neutrophils % Not Reportable Lymphocytes % 26 (15-49) % Monocytes % (Manual) 3 (1-12) % Eosinophils % (Manual) 5 (0-7) % Platelet Estimate Increased (NORMAL) RBC Morphology Abnorm A (NORMAL) Hypochromasia 1+ A (NONE SEEN) Anisocytosis 1+ A (NONE SEEN) Microcytosis 2+ A (NONE SEEN) POC Sodium 139 (133-145) mmol/L POC Potassium 3.7 (3.3-5.1) mmol/L POC Chloride 104 (96-108) mmol/L POC Total CO2 23 (22-30) mmol/L POC BUN 10 (6-20) mg/dl POC Creatinine 0.6 (0.6-1.1) mg/dl POC Glucose 108 H (70-105) mg/dL POC WB Ioniz Calcium 1.17 (1.16-1.32) mmol/L Disposition Clinical Impression: Abdominal abscess Disposition: Xfer As Inpt ([facility]) Condition: Good Referrals: Luly Ambriz ARNP [Primary Care Provider] -
[2016-10-24 09:56] LABS: Mean Cell Volume 73.4 fL (80.0-100.0); Mean Corpuscular HGB Conc 32.5 g/dL (31.0-36.0); Mean Corpuscular Hemoglobin 23.9 pg (26.0-34.0); Platelet Count 484 K/mcL (140-440); RBC 4.47 M/mcL (4.00-5.20); Red Cell Distribution Width 16.8 % (11.5-14.5)
[2016-10-24] MEDS: 0.9 % SODIUM CHLORIDE 1,000 ML IV SCH ×4 (10:00→22:33)
[2016-10-24] MEDS: HYDROmorphone 2 MG/ML SYRINGE IV PRN ×5 (10:20→23:09)
[2016-10-24 10:47] LABS: Anisocytosis 1+ (NONE SEEN); Eosinophils % (Manual) 5 % (0-7); Hypochromasia 1+ (NONE SEEN); Lymphocytes % 26 % (15-49); Monocytes % (Manual) 3 % (1-12); Platelet Estimate INCREASED (NORMAL); RBC Morphology ABNORM (NORMAL); Segmented Neutrophils % 66 % (38-78)
--- NOTE | 2016-10-24 11:16 | XRay Report ---
CLINICAL INFORMATION: Nausea and vomiting follow-up small partial small bowel obstruction COMPARISON: 10/14/2016 upper GI small bowel follow-through FINDINGS: There is only small amount of gas seen within the distal stomach and a single loop of small bowel in the right mid abdomen. The remainder of the GI tract is clearly decompressed. No free air, soft tissue tissue mass or organomegaly. Percutaneous drain overlies the left midabdomen in stable position. IMPRESSION: Decompressed GI tract - no evidence of obstruction Interpreted and Authenticated by: Romel Lay 10/24/16
[2016-10-24] MEDS ORDERED: PROMETHAZINE 25 MG/ML VIAL IV ONE (12:12)
--- NOTE | 2016-10-24 13:04 | Cat Scan Report ---
CLINICAL INFORMATION: Abdominal pain and distention. Recurrent small bowel obstruction. Also abscess in the rectus sheath COMPARISON: Abdomen and pelvic CT from five weeks prior - 09/15/2016. TECHNIQUE: Following enteric contrast, 80 cc of Isovue-300 were injected intravenously, and 60 seconds later, 2.5 mm helical slices were obtained from the mid heart through the subtrochanteric regions. Following reconstruction, 2.5 mm sagittal, coronal and axial reformatted images were processed and reviewed at bone, lung and soft tissue windows. Five minutes later, 5 mm helical slices were obtained from the mid heart through the kidneys and viewed at soft tissue windows. FINDINGS: Lung bases show no abnormality - no effusion. Visualized heart is grossly normal. Images through the abdomen show the liver to be normal in size and duration without focal lesion. The gallbladder is surgically absent. Intrahepatic and common bile ducts are normal caliber: CBD is 5 mm. Both kidneys, adrenal glands, spleen, pancreas and aorta, including aortic branches, are normal in size, configuration and attenuation without focal lesion. Images through the pelvis show anteflexed uterus which is mildly enlarged - 12 x 5.8 cm. A bulbous configuration in the fundal region is unchanged. Urinary bladder is normal. The region of the ovaries are normal. The abscess in the rectus sheath has increased in size now spanning 9.3 x 15 cm. The percutaneous drainage tube has migrated laterally - the sideholes are no longer within the fluid collection - tube drainage is presently not effective. The stomach and small bowel are mildly dilated to a transition point best in the distal ileum (axial image 111.) Distal to the transition point, the terminal ileum and colon are decompressed. Findings are compatible partial small bowel obstruction related to adhesion or stricture. There is no free air or adenopathy. The region of the appendix is normal. IMPRESSION: 1. Moderate increase in rectus sheath abscess since the comparison study five weeks ago. It now measures 5.5 x 15 cm. Percutaneous drainage tube has migrated into Camper's fascia: the sideholes are normal longer within the fluid. The tube should be advanced 5.5 cm under ultrasound to ensure optimal position within the central abscess cavity. 2. Partial small bowel obstruction of the distal ileum suspect adhesion or stricture. Interpreted and Authenticated by: Romel Lay 10/24/16
[2016-10-24] MEDS ORDERED: ONDANSETRON 4 MG/2 ML VIAL IV PRN (13:44)
[2016-10-24] MEDS ORDERED: LOPERAMIDE 2 MG CAPSULE PO PRN (13:54)
[2016-10-24] MEDS: 0.9 % SODIUM CHLORIDE 10 ML SYRINGE IV SCH ×2 (13:56→21:02)
--- NOTE | 2016-10-24 14:00 | General Surg History&Physical ---
History of Present Illness Patient information: Note initiated : 10/24/16 at 1:58 pm Service Date, if different from initiated Date: [] Patient: Kaya High 41 y/o F admitted on 10/24/16 for Abd Pain. Chief Complaint: [] HPI: Ms. High is a 41 year old female with history of chronic infected seroma dating back to January 2016. At that time she had repair of an incisional hernia with SURGIMESH. She did well but developed a large seroma that became infected with methicillin sensitive Staphylococcus aureus. She has had multiple episodes of antibiotics over many months. She has had percutaneous drainage 3 with infusion of antibiotics including vancomycin liquid and vancomycin powder without success. She had open drainage with placement of wound VAC for prolonged period of time without success. The last treatment was percutaneous drainage with long-term oral antibiotics but each time that she improves she recurs after the antibiotics are discontinued. It is felt that all available treatments have been given and that it would be best to remove the mesh. The patient is admitted for antibiotic treatment because of increasing fever leukocytosis and worsening pain. She will be scheduled for exploration and probable mesh removal. Review of Systems - Constitutional anorexia, weight loss - EENT Nose, mouth and throat: no dizziness, no neck pain, no sore throat, no tongue swelling - Cardiovascular no chest pain at rest, no edema, no palpatations, no rapid heart rate - Respiratory dyspnea on exertion, other (Sleep apnea), no cough, no wheezing - Gastrointestinal abdominal pain, bloating, change in bowel habits, diarrhea, heartburn, hematochezia - Genitourinary Genitourinary: no hematuria, no urinary frequency, no urinary urgency - Musculoskeletal no arthralgias, no joint swelling, no muscle cramps, no stiffness - Integumentary no changing lesions, no pruritus, no rash - Neurological no headache(s), no numbness, no syncope, no tremor(s), no weakness - Psychiatric anxiety, depression - Endocrine no cold intolerance, no fatigue - Hematologic/Lymphatic no easy bleeding, no easy bruising, no lymphadenopathy - Allergic/Immunologic no tongue swelling, no throat swelling, no uticaria, no wheezing, no lip swelling Past History Past medical history: Chronic anemia Depression with anxiety Gastroesophageal reflux disease Hypertension Short gut syndrome with diarrhea Morbid obesity Obstructive sleep apnea Chronic anticoagulant therapy Partial bowel obstruction Recurrent pulmonary embolus Past surgical history: 4 Appendectomy Cholecystectomy Exploratory laparotomy 3 Left oophorectomy Diagnostic laparoscopy Incisional hernia repair Past family history: None Past social history: Never smoker Occasional alcohol use Denies substance abuse Medications and Allergies Home Medications Medication Instructions Recorded Confirmed Type buspirone 7.5 mg tablet 7.5 mg PO TID 11/26/15 10/24/16 History Lactobacillus [Culturelle] 1 cap PO DAILY 02/01/16 10/24/16 History rivaroxaban 15 mg tablet 20 mg PO DAILY 02/18/16 10/24/16 History Turmeric 1 tab PO DAILY 03/11/16 10/24/16 History Loperamide [Imodium] 2 mg PO Q8H PRN #100 cap 05/18/16 10/24/16 Rx Metoprolol Succinate [Toprol Xl] 25 mg PO HS 06/09/16 10/24/16 History Ondansetron HCl [Zofran] 8 mg PO Q12H PRN 06/09/16 10/24/16 History lorazepam 0.5 mg tablet 0.5 mg BUCCAL BID-TID PRN 06/23/16 10/24/16 History sertraline 100 mg tablet 100 mg PO QDAY 06/23/16 10/24/16 History ergocalciferol (vitamin D2) 50,000 50,000 unit PO QWEEK #16 cap 07/28/16 Rx unit capsule trazodone 50 mg tablet 50 mg PO QHS 08/11/16 10/24/16 History amiloride 5 mg tablet 5 mg PO QDAY #30 tab 09/19/16 10/24/16 Rx famotidine 20 mg tablet 20 mg PO QDAY #30 tab 09/19/16 10/24/16 Rx lisinopril 20 mg tablet 10 mg PO BID #60 tab 09/19/16 10/24/16 Rx ranitidine 150 mg tablet 150 mg PO BID #60 tab 09/19/16 10/24/16 Rx magnesium oxide 400 mg tablet 400 mg PO BID tab 09/20/16 10/24/16 History potassium chloride ER 20 mEq 20 meq PO BID tab 09/20/16 10/24/16 History tablet,extended release(part/cryst) gabapentin 100 mg capsule 300 mg PO TID cap 10/04/16 10/24/16 History oxycodone-acetaminophen 5 mg-325 2 tab PO q6h #100 tab 10/17/16 10/24/16 Rx mg tablet sulfamethoxazole 800 1 tab PO BID #60 tab 10/17/16 10/24/16 Rx mg-trimethoprim 160 mg tablet clindamycin 300 mg capsule 300 mg PO QID #60 cap 10/20/16 10/24/16 Rx calcium carbonate 500 mg calcium 1,250 mg PO QDAY 10/24/16 10/24/16 History (1,250 mg) capsule Allergies Allergy/AdvReac Type Severity Reaction Status Date / Time No Known Drug Allergies Allergy Verified 10/20/16 08:25 Exam Temp Pulse Resp BP Pulse Ox 98.4 F 81 20 125/77 98 10/24/16 12:59 10/24/16 12:59 10/24/16 12:59 10/24/16 12:59 10/24/16 12:59 - General physical appearance well developed, well nourished, no distress - Eyes PERRL, normal ocular movement - ENT normal pinna, normal nares, normal mucosa, no hearing loss, no congestion - Head Head exam IM: Present: atraumatic, normocephalic - Neck no masses, no bruits, trachea midline, no lymphadectomy, no venous distension - Cardiovascular Cardiovascular exam IM: Present: normal rate and rhythm, RRR, +S1, +S2. Absent : JVD, systolic murmur - Respiratory normal expansion, normal respiratory effort, clear to percussion, clear to auscultation - Abdomen Abdomen: Present: soft, tender (Tendon midline incision; draining sinus tract to the right of midline percutaneous drain left lower quadrant;), bowel sounds Hernia: Present: none - Genitourinary Present: normal external genitalia - Integumentary Present: no rash, no growths, no abnormal pigmentation - Neurologic Present: normal coordination, normal sensation - Musculoskeletal Present: normal gait, normal posture - Psychiatric Present: oriented to time, oriented to person, oriented to place, speech is normal, memory intact Assessment and Plan (1) Chronic diarrhea Status: Acute (2) Abdominal wall abscess at site of surgical wound Status: Acute Comment: 06/10/2016-full thickness excision of abdominal wall with surgical debridement and primary closure. (3) Hypertensive disorder Status: Chronic Qualifiers: (4) Obstructive sleep apnea Status: Chronic (5) Depressive disorder Status: Deleted (6) Depression with anxiety Status: Chronic (7) Morbid obesity Status: Chronic Priority: Low Qualifiers: (8) Pulmonary embolus Status: Chronic Comment: Treated with anticoagulation Qualifiers:
[2016-10-24] MEDS ORDERED: LORazepam 0.5 MG TABLET SL PRN (14:04)
[2016-10-24] MEDS: ERTAPENEM 1 GM in 0.9 % SODIUM CHLORIDE 50 ML IV SCH (14:25)
[2016-10-24] MEDS: VANCOMYCIN 1,000 MG in 0.9 % SODIUM CHLORIDE 250 ML IV SCH ×2 (15:37→22:33)
[2016-10-24 15:40] LABS: ALT/SGPT 11 U/l (0-40); Albumin 3.4 gm/dL (3.2-5.2); Albumin/Globulin Ratio 0.9 (1.0-2.3); Alkaline Phosphatase 87 U/L (39-117); Bilirubin,Direct < 0.2 mg/dL (0.0-0.3); Blood Urea Nitrogen 8 mg/dl (6-20); Gamma Glutamyl Transpeptidase 52 U/L (5-36); Magnesium 1.4 mg/dL (1.6-2.5); Uric Acid 6.3 mg/dL (2.5-8.0)
[2016-10-24] MEDS: POTASSIUM CHLORIDE 20 MEQ TABLET PO SCH (16:49)
[2016-10-24] MEDS: oxyCODONE/APAP 5/325MG TABLET PO SCH (18:02)
[2016-10-24] MEDS: traZODone HCL 50 MG TABLET PO SCH (20:58)
[2016-10-24] MEDS: busPIRone 5 MG TABLET PO SCH (20:58)
[2016-10-24] MEDS: FAMOTIDINE 20 MG TABLET PO SCH (20:58)
[2016-10-24] MEDS: METOPROLOL SUCCINATE 25 MG TAB.XL.24H PO SCH (20:59)
[2016-10-24] MEDS: LISINOPRIL 20 MG TABLET PO SCH (20:59)
[2016-10-25] MEDS: oxyCODONE/APAP 5/325MG TABLET PO SCH ×4 (00:15→18:27)
[2016-10-25] MEDS: HYDROmorphone 2 MG/ML SYRINGE IV PRN ×5 (03:35→22:14)
[2016-10-25 05:44] LABS: Mean Cell Volume 73.3 fL (80.0-100.0); Mean Corpuscular Hemoglobin 24.2 pg (26.0-34.0); Platelet Count 398 K/mcL (140-440); RBC 3.71 M/mcL (4.00-5.20); Red Cell Distribution Width 16.3 % (11.5-14.5)
[2016-10-25] MEDS: 0.9 % SODIUM CHLORIDE 10 ML SYRINGE IV SCH ×3 (06:24→22:01)
[2016-10-25 06:53] LABS: Anisocytosis 1+ (NONE SEEN); Eosinophils % (Manual) 4 % (0-7); Hypochromasia 1+ (NONE SEEN); Lymphocytes % 21 % (15-49); Monocytes % (Manual) 7 % (1-12); Platelet Estimate NORMAL (NORMAL); RBC Morphology ABNORM (NORMAL); Segmented Neutrophils % 68 % (38-78)
[2016-10-25] MEDS: LACTOBACILLUS 1 CAPSULE PO SCH (08:42)
[2016-10-25] MEDS: ERTAPENEM 1 GM in 0.9 % SODIUM CHLORIDE 50 ML IV SCH (08:42)
[2016-10-25] MEDS: aMILoride 5 MG TABLET PO SCH (08:42)
[2016-10-25] MEDS: LISINOPRIL 20 MG TABLET PO SCH ×2 (08:42→22:00)
[2016-10-25] MEDS: FAMOTIDINE 20 MG TABLET PO SCH ×2 (08:43→22:00)
[2016-10-25] MEDS: POTASSIUM CHLORIDE 20 MEQ TABLET PO SCH ×2 (08:43→18:26)
[2016-10-25] MEDS: busPIRone 5 MG TABLET PO SCH ×3 (08:43→22:01)
[2016-10-25] MEDS: SERTRALINE 50 MG TABLET PO SCH (08:44)
[2016-10-25] MEDS ORDERED: FAMOTIDINE 20 MG TABLET PO SCH (09:00)
[2016-10-25] MEDS: VANCOMYCIN 1,000 MG in 0.9 % SODIUM CHLORIDE 250 ML IV SCH ×2 (11:45→22:00)
[2016-10-25] MEDS ORDERED: MAGNESIUM SULFATE 32.48 MEQ in DEXTROSE 5% IN WATER 50 ML IV ONE (15:29)
[2016-10-25] MEDS: 0.9 % SODIUM CHLORIDE 1,000 ML IV SCH (15:33)
[2016-10-25] MEDS ORDERED: 0.9 % SODIUM CHLORIDE 250 ML IV SCH (16:00)
--- NOTE | 2016-10-25 16:04 | General Surgery Progress Note ---
Subjective Patient reports: feels better, pain is less, tolerating liquids well, flatus, bowel movement, afebrile Narrative: Note initiated : 10/25/16 at 4:02 pm Service Date, if different from initiated Date: [] Patient: Kaya High 41 y/o F admitted on 10/24/16 for Abd Pain/Abdominal Abscess. Chief Complaint: [Patient is doing better. She has less pain. She is counseled for exploration of her abdominal wall with possible removal of mesh. This will be done in the morning. She has difficulty with IV access so permission has been obtained for placement of Port-A-Cath for a more permanent IV access. She has had PEs in the past with PICC line so I would like to avoid PICC line placement. She is on long-term Xarelto but has not taken it for the past 4 days.] Objective Temp Pulse Resp BP Pulse Ox 98.2 F 73 16 105/72 95 10/25/16 15:38 10/25/16 03:36 10/25/16 15:38 10/25/16 15:38 10/25/16 15:38 - Additional Data Intake & Output - Last 24 hours: Intake & Output 10/23/16 10/24/16 10/25/16 10/26/16 05:59 05:59 05:59 05:59 Intake Total 2150 / 4150 1900 / 1900 Output Total 100 / 100 1500 / 1500 Balance 2050 / 4050 400 / 400 Weight 303 lb 8 oz - General physical appearance well developed, moderate distress, moderate pain, obese - Eyes PERRL - ENT no congestion - Neck no venous distension - Respiratory clear to auscultation - Cardiovascular Cardiovascular exam: Present: normal rate and rhythm, RRR, +S1, +S2. Absent: JVD - Abdomen soft, tender, bowel sounds, distended (Abdomen is mildly distended. She has tenderness over the midline where the fluid collection has reaccumulated. There is no drainage through her catheter) Hernia: none - Integumentary no rash - Neurologic normal coordination, normal sensation - Musculoskeletal normal gait, normal posture - Psychiatric oriented to time, oriented to person, oriented to place, speech is normal, memory intact - Labs 10/25/16 04:45 10/24/16 14:12 Assessment and Plan (1) Abdominal wall abscess at site of surgical wound Problem details: 06/10/2016-full thickness excision of abdominal wall with surgical debridement and primary closure. Status: Acute Assessment and plan: Patient is counseled for exploration of abdominal wall with removal of the mesh in the morning. A subclavian Port-A-Cath will also be placed. Current Visit: No (2) Chronic diarrhea Status: Acute Current Visit: No (3) Hypertensive disorder Status: Chronic Current Visit: No (4) Obstructive sleep apnea Status: Chronic Current Visit: No (5) Depression with anxiety Status: Chronic Current Visit: No (6) Morbid obesity Status: Chronic Current Visit: No (7) Pulmonary embolus Problem details: Treated with anticoagulation Status: Chronic Current Visit : No - Time Spent With Patient Total time spent is greater than 50% in coordination of care (as documented) at patient's floor/unit and/or counseling patient:
[2016-10-25] MEDS: traZODone HCL 50 MG TABLET PO SCH (22:00)
[2016-10-25] MEDS: METOPROLOL SUCCINATE 25 MG TAB.XL.24H PO SCH (22:01)
[2016-10-26] MEDS: oxyCODONE/APAP 5/325MG TABLET PO SCH ×3 (00:02→11:12)
[2016-10-26] MEDS: 0.9 % SODIUM CHLORIDE 1,000 ML IV SCH ×5 (00:27→14:17)
[2016-10-26] MEDS: HYDROmorphone 2 MG/ML SYRINGE IV PRN ×10 (03:30→23:07)
[2016-10-26 05:52] LABS: Mean Corpuscular HGB Conc 32.5 g/dL (31.0-36.0); Mean Corpuscular Hemoglobin 24.1 pg (26.0-34.0); Platelet Count 398 K/mcL (140-440); RBC 3.69 M/mcL (4.00-5.20); Red Cell Distribution Width 16.5 % (11.5-14.5)
[2016-10-26] MEDS: 0.9 % SODIUM CHLORIDE 10 ML SYRINGE IV SCH ×2 (06:00→13:03)
[2016-10-26 06:21] LABS: ALT/SGPT 9 U/l (0-40); Albumin 3.3 gm/dL (3.2-5.2); Alkaline Phosphatase 87 U/L (39-117); Bilirubin,Direct < 0.2 mg/dL (0.0-0.3); Blood Urea Nitrogen 5 mg/dl (6-20); Gamma Glutamyl Transpeptidase 45 U/L (5-36); Magnesium 2.1 mg/dL (1.6-2.5); Uric Acid 6.7 mg/dL (2.5-8.0)
[2016-10-26 06:47] LABS: Anisocytosis 1+ (NONE SEEN); Band Neutrophils % 1 % (0-10); Eosinophils % (Manual) 3 % (0-7); Hypochromasia 1+ (NONE SEEN); Lymphocytes % 25 % (15-49); Monocytes % (Manual) 6 % (1-12); Platelet Estimate NORMAL (NORMAL); RBC Morphology ABNORM (NORMAL); Segmented Neutrophils % 65 % (38-78)
[2016-10-26] MEDS: ERTAPENEM 1 GM in 0.9 % SODIUM CHLORIDE 50 ML IV SCH (09:31)
[2016-10-26] MEDS: VANCOMYCIN 1,000 MG in 0.9 % SODIUM CHLORIDE 250 ML IV SCH ×2 (10:21→21:51)
[2016-10-26] MEDS: busPIRone 5 MG TABLET PO SCH ×3 (10:39→20:18)
[2016-10-26] MEDS: LISINOPRIL 20 MG TABLET PO SCH (10:39)
[2016-10-26] MEDS: FAMOTIDINE 20 MG TABLET PO SCH ×2 (10:39→20:31)
[2016-10-26] MEDS: POTASSIUM CHLORIDE 20 MEQ TABLET PO SCH ×2 (10:39→17:03)
[2016-10-26] MEDS ORDERED: ONDANSETRON 4 MG/2 ML VIAL IV ONE (11:05)
[2016-10-26] MEDS ORDERED: LIDOCAINE HCL/PF 100 MG/5 ML SYRINGE IV ONE (11:05)
[2016-10-26] MEDS ORDERED: PHENYLEPHRINE 10 MG/ML VIAL IV ONE (11:05)
[2016-10-26] MEDS ORDERED: ROCURONIUM 10 MG/ML ML IV ONE (11:05)
[2016-10-26] MEDS ORDERED: GLYCOPYRROLATE 0.2 MG/ML VIAL IV ONE (11:05)
[2016-10-26] MEDS ORDERED: PROPOFOL 200 MG/20 ML VIAL IV ONE (11:05)
[2016-10-26] MEDS ORDERED: DEXAMETHASONE 10 MG/ML VIAL IV ONE (11:05)
[2016-10-26] MEDS ORDERED: SUCCINYLCHOLINE 20 MG/ML ML IV ONE (11:05)
[2016-10-26] MEDS ORDERED: MIDAZOLAM 5 MG/5 ML VIAL IV ONE (11:05)
[2016-10-26] MEDS ORDERED: fentaNYL 250 MCG/5 ML VIAL IV ONE (11:05)
[2016-10-26] MEDS ORDERED: NEOSTIGMINE 1 MG/ML VIAL IV ONE (11:05)
[2016-10-26] MEDS ORDERED: ePHEDrine 50 MG/ML AMPUL IV ONE (11:05)
[2016-10-26] MEDS ORDERED: IPRATROPIUM/ALBUTEROL 3 ML AMPUL.NEB NEB PRN (12:34)
[2016-10-26] MEDS ORDERED: NALOXONE HCL 0.4 MG/ML VIAL IV PRN (12:34)
[2016-10-26] MEDS ORDERED: ePHEDrine 50 MG/ML AMPUL IV PRN (12:34)
[2016-10-26] MEDS ORDERED: FLUMAZENIL 0.1 MG/ML ML IV PRN (12:34)
[2016-10-26] MEDS ORDERED: diphenhydrAMINE 50 MG/ML VIAL IV PRN (12:34)
[2016-10-26] MEDS ORDERED: PROMETHAZINE 25 MG/ML VIAL IM PRN (12:34)
[2016-10-26] MEDS ORDERED: METOPROLOL TARTRATE 5 MG/5 ML VIAL IV PRN (12:34)
[2016-10-26] MEDS ORDERED: ATROPINE SULFATE 0.4 MG/ML VIAL IV PRN (12:34)
[2016-10-26] MEDS ORDERED: BENZOCAINE/MENTHOL 1 LOZENGE PO PRN (12:34)
[2016-10-26] MEDS ORDERED: ONDANSETRON 4 MG/2 ML VIAL IV PRN (12:34)
[2016-10-26] MEDS ORDERED: METHOCARBAMOL 1,000 MG/10 ML VIAL IV PRN (12:34)
[2016-10-26] MEDS ORDERED: PROMETHAZINE 25 MG/ML VIAL IV PRN (12:34)
--- NOTE | 2016-10-26 13:30 | Brief Operative Note ---
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
[2016-10-26] MEDS ORDERED: LIDOCAINE 1% 20 ML VIAL SQ ONE (13:35)
[2016-10-26] MEDS ORDERED: BACITRACIN 50,000 UNIT VIAL IR ONE (13:35)
[2016-10-26] MEDS: VANCOMYCIN 1 GM VIAL TOPICAL SCH (13:39)
[2016-10-26] MEDS: fentaNYL 100 MCG/2 ML VIAL IV PRN ×4 (13:40→13:55)
--- NOTE | 2016-10-26 14:21 | XRay Report ---
CLINICAL INFORMATION: Central line placement COMPARISON: 09/15/2016 FINDINGS: Left subclavian Port-A-Cath tip overlies the SVC right atrial junction. The heart is accentuated by lordotic positioning and supine positioning and within normal limits. Mediastinum and pulmonary vessels are unremarkable. The lungs are clear. No effusions. IMPRESSION: No acute disease. Left-sided Port-A-Cath is in satisfactory position. No complication from line placement Interpreted and Authenticated by: Romel Lay 10/26/16
[2016-10-26] MEDS ORDERED: LORazepam 0.5 MG TABLET SL PRN (15:05)
[2016-10-26] MEDS ORDERED: LOPERAMIDE 2 MG CAPSULE PO PRN (15:05)
[2016-10-26] MEDS: KETOROLAC 15 MG/ML VIAL IV SCH ×2 (16:25→21:50)
[2016-10-26] MEDS: LACTOBACILLUS 1 CAPSULE PO SCH (16:29)
[2016-10-26] MEDS: aMILoride 5 MG TABLET PO SCH (16:29)
[2016-10-26] MEDS: SERTRALINE 50 MG TABLET PO SCH (16:29)
[2016-10-26] MEDS ORDERED: oxyCODONE/APAP 5/325MG TABLET PO SCH (18:00)
[2016-10-26] MEDS: ACETAMINOPHEN 1,000 MG/100 ML BOTTLE IV SCH (18:37)
[2016-10-26] MEDS: METOPROLOL SUCCINATE 25 MG TAB.XL.24H PO SCH (20:31)
[2016-10-26] MEDS: LISINOPRIL 10 MG TABLET PO SCH (20:31)
[2016-10-27] MEDS: traZODone HCL 50 MG TABLET PO SCH (00:33)
[2016-10-27] MEDS: ACETAMINOPHEN 1,000 MG/100 ML BOTTLE IV SCH ×5 (00:39→23:31)
[2016-10-27] MEDS: KETOROLAC 15 MG/ML VIAL IV SCH ×4 (03:43→22:01)
[2016-10-27 06:19] LABS: Mean Cell Volume 73.7 fL (80.0-100.0); Mean Corpuscular HGB Conc 32.5 g/dL (31.0-36.0); Mean Corpuscular Hemoglobin 23.9 pg (26.0-34.0); Platelet Count 373 K/mcL (140-440); RBC 3.68 M/mcL (4.00-5.20); Red Cell Distribution Width 16.5 % (11.5-14.5)
[2016-10-27 06:20] LABS: ALT/SGPT 9 U/l (0-40); Albumin 3.2 gm/dL (3.2-5.2); Alkaline Phosphatase 81 U/L (39-117); Bilirubin,Direct < 0.2 mg/dL (0.0-0.3); Blood Urea Nitrogen 5 mg/dl (6-20); Gamma Glutamyl Transpeptidase 50 U/L (5-36); Magnesium 1.8 mg/dL (1.6-2.5)
[2016-10-27 08:05] LABS: Anisocytosis 1+ (NONE SEEN); Band Neutrophils % 3 % (0-10); Hypochromasia 1+ (NONE SEEN); Lymphocytes % 10 % (15-49); Monocytes % (Manual) 2 % (1-12); Ovalocytes FEW (NONE SEEN); Platelet Estimate NORMAL (NORMAL); RBC Morphology ABNORM (NORMAL); Segmented Neutrophils % 85 % (38-78)
[2016-10-27] MEDS: HYDROmorphone 2 MG/ML SYRINGE IV PRN ×5 (08:24→20:29)
[2016-10-27] MEDS: POTASSIUM CHLORIDE 20 MEQ TABLET PO SCH ×2 (08:24→17:24)
[2016-10-27] MEDS: busPIRone 5 MG TABLET PO SCH ×3 (08:27→20:30)
[2016-10-27] MEDS: SERTRALINE 50 MG TABLET PO SCH (08:28)
[2016-10-27] MEDS: FAMOTIDINE 20 MG TABLET PO SCH ×2 (08:28→20:30)
[2016-10-27] MEDS: LISINOPRIL 10 MG TABLET PO SCH ×2 (08:28→20:31)
[2016-10-27] MEDS: LACTOBACILLUS 1 CAPSULE PO SCH (08:35)
[2016-10-27] MEDS: aMILoride 5 MG TABLET PO SCH (08:35)
[2016-10-27] MEDS: ERTAPENEM 1 GM in 0.9 % SODIUM CHLORIDE 50 ML IV SCH (08:35)
[2016-10-27] MEDS: VANCOMYCIN 1,000 MG in 0.9 % SODIUM CHLORIDE 250 ML IV SCH ×2 (09:45→22:01)
[2016-10-27] MEDS: ONDANSETRON 4 MG/2 ML VIAL IV PRN (09:53)
[2016-10-27] MEDS: VANCOMYCIN 1 GM VIAL TOPICAL SCH (12:27)
--- NOTE | 2016-10-27 13:06 | General Surgery Progress Note ---
Subjective Patient reports: no new complaints, flatus, bowel movement, afebrile Narrative: Note initiated : 10/27/16 at 1:04 pm Service Date, if different from initiated Date: [] Patient: Kaya High 41 y/o F admitted on 10/24/16 for Abd Pain/Abdominal Abscess. Chief Complaint: [Patient is doing well on her first postoperative day. She actually has less pain than she had in the preoperative period. Her SAMMI drains were hooked to suction since the fluid had drained into the canister. She has been afebrile. Initial wound cultures are negative. She does complain of vulvovaginitis due to Elise] Objective Temp Pulse Resp BP Pulse Ox 98 F 50 L 16 117/76 96 10/27/16 10:42 10/27/16 04:00 10/27/16 10:42 10/27/16 10:42 10/27/16 10:42 - Additional Data Intake & Output - Last 24 hours: Intake & Output 10/25/16 10/26/16 10/27/16 10/28/16 05:59 05:59 05:59 05:59 Intake Total 2150 / 4150 4650 / 4650 3945 / 3945 1240 / 1240 Output Total 100 / 100 2525 / 2525 2600 / 2600 675 / 675 Balance 2050 / 4050 2125 / 2125 1345 / 1345 565 / 565 Weight 303 lb 8 oz 314 lb 1.6 oz 321 lb 8 oz - Neck no venous distension - Respiratory clear to auscultation - Cardiovascular Cardiovascular exam: Present: normal rate and rhythm, RRR, +S1, +S2. Absent: JVD, systolic murmur - Abdomen tender, bowel sounds, distended (Abdomen is mildly distended; she has good active bowel sounds; there is mild tenderness of the incision but otherwise her abdomen is benign.) - Genitourinary perineal/vulvar lesions (Mild vulvovaginitis) - Integumentary no rash, no growths, no abnormal pigmentation - Neurologic normal coordination, normal sensation - Musculoskeletal normal gait - Psychiatric oriented to time, oriented to person, oriented to place, speech is normal, memory intact - Labs 10/27/16 03:57 10/27/16 03:57 Diabetes panel 10/27/16 Range/Units 03:57 Sodium 138 (133-145) mmol/L Potassium 4.3 (3.3-5.1) mmol/L Chloride 105 (96-108) mmol/L Carbon Dioxide 23 (22-30) mmol/L BUN 5 L (6-20) mg/dl Creatinine 0.6 (0.6-1.1) mg/dl Glucose 119 H (70-105) mg/dL Calcium 8.7 (8.6-10.4) mg/dl AST 10 (0-37) U/l ALT 9 (0-40) U/l Alkaline Phosphatase 81 (39-117) U/L Total Protein 6.5 (5.9-8.4) gm/dL Albumin 3.2 (3.2-5.2) gm/dL Triglycerides 166 H (<150) mg/dl Calcium panel 10/27/16 Range/Units 03:57 Calcium 8.7 (8.6-10.4) mg/dl Phosphorus 3.5 (2.7-4.5) mg/dL Albumin 3.2 (3.2-5.2) gm/dL Pituitary panel 10/27/16 Range/Units 03:57 Sodium 138 (133-145) mmol/L Potassium 4.3 (3.3-5.1) mmol/L Chloride 105 (96-108) mmol/L Carbon Dioxide 23 (22-30) mmol/L BUN 5 L (6-20) mg/dl Creatinine 0.6 (0.6-1.1) mg/dl Glucose 119 H (70-105) mg/dL Calcium 8.7 (8.6-10.4) mg/dl Adrenal panel 10/27/16 Range/Units 03:57 Sodium 138 (133-145) mmol/L Potassium 4.3 (3.3-5.1) mmol/L Chloride 105 (96-108) mmol/L Carbon Dioxide 23 (22-30) mmol/L BUN 5 L (6-20) mg/dl Creatinine 0.6 (0.6-1.1) mg/dl Glucose 119 H (70-105) mg/dL Calcium 8.7 (8.6-10.4) mg/dl Total Bilirubin 0.2 (0.0-1.0) mg/dL AST 10 (0-37) U/l ALT 9 (0-40) U/l Alkaline Phosphatase 81 (39-117) U/L Total Protein 6.5 (5.9-8.4) gm/dL Albumin 3.2 (3.2-5.2) gm/dL Assessment and Plan (1) Chronic diarrhea Status: Acute Current Visit: No (2) Abdominal wall abscess at site of surgical wound Problem details: 06/10/2016-full thickness excision of abdominal wall with surgical debridement and primary closure. Status: Acute Assessment and plan: Stable postoperative day 1 without major complaints. Start Placing the SAMMI drains on suction Diflucan 100 mg daily Regular diet May access Port-A-Cath Current Visit: No (3) Hypertensive disorder Status: Chronic Current Visit: No (4) Obstructive sleep apnea Status: Chronic Current Visit: No (5) Depressive disorder Status: Deleted Current Visit: No (6) Depression with anxiety Status: Chronic Current Visit: No (7) Morbid obesity Status: Chronic Current Visit: No (8) Pulmonary embolus Problem details: Treated with anticoagulation Status: Chronic Current Visit : No - Time Spent With Patient Total time spent is greater than 50% in coordination of care (as documented) at patient's floor/unit and/or counseling patient:
[2016-10-27] MEDS: FLUCONAZOLE 100 MG TABLET PO SCH (13:46)
[2016-10-27] MEDS: METOPROLOL SUCCINATE 25 MG TAB.XL.24H PO SCH (20:31)
[2016-10-28] MEDS: traZODone HCL 50 MG TABLET PO SCH ×2 (00:11→20:36)
[2016-10-28] MEDS: KETOROLAC 15 MG/ML VIAL IV SCH ×4 (02:00→22:29)
[2016-10-28] MEDS ORDERED: HYDROmorphone 2 MG TABLET ONE (03:30)
[2016-10-28 05:41] LABS: Mean Cell Volume 74.5 fL (80.0-100.0); Mean Corpuscular Hemoglobin 23.9 pg (26.0-34.0); Platelet Count 355 K/mcL (140-440); RBC 3.48 M/mcL (4.00-5.20); Red Cell Distribution Width 16.9 % (11.5-14.5)
[2016-10-28] MEDS: ACETAMINOPHEN 1,000 MG/100 ML BOTTLE IV SCH ×3 (05:55→17:40)
[2016-10-28 06:03] LABS: ALT/SGPT 8 U/l (0-40); Albumin 3.1 gm/dL (3.2-5.2); Alkaline Phosphatase 73 U/L (39-117); Bilirubin,Direct < 0.2 mg/dL (0.0-0.3); Blood Urea Nitrogen 11 mg/dl (6-20); Gamma Glutamyl Transpeptidase 38 U/L (5-36); Magnesium 1.7 mg/dL (1.6-2.5); Uric Acid 7.7 mg/dL (2.5-8.0)
[2016-10-28] MEDS ORDERED: ONDANSETRON ODT 4 MG TABLET SL PRN (06:39)
[2016-10-28 06:40] LABS: Anisocytosis 1+ (NONE SEEN); Eosinophils % (Manual) 1 % (0-7); Hypochromasia 1+ (NONE SEEN); Lymphocytes % 25 % (15-49); Monocytes % (Manual) 5 % (1-12); Platelet Estimate NORMAL (NORMAL); RBC Morphology ABNORM (NORMAL); Segmented Neutrophils % 69 % (38-78)
[2016-10-28] MEDS: ONDANSETRON 4 MG/2 ML VIAL IV PRN (08:08)
[2016-10-28] MEDS: HYDROmorphone 2 MG/ML SYRINGE IV PRN ×3 (08:08→20:37)
[2016-10-28] MEDS: POTASSIUM CHLORIDE 20 MEQ TABLET PO SCH ×2 (08:09→17:41)
[2016-10-28] MEDS: ERTAPENEM 1 GM in 0.9 % SODIUM CHLORIDE 50 ML IV SCH (10:12)
[2016-10-28] MEDS: FLUCONAZOLE 100 MG TABLET PO SCH (10:22)
[2016-10-28] MEDS: busPIRone 5 MG TABLET PO SCH ×3 (10:22→20:34)
[2016-10-28] MEDS: LISINOPRIL 10 MG TABLET PO SCH ×2 (10:22→20:33)
[2016-10-28] MEDS: FAMOTIDINE 20 MG TABLET PO SCH ×2 (10:22→20:35)
[2016-10-28] MEDS: SERTRALINE 50 MG TABLET PO SCH (10:22)
[2016-10-28] MEDS: aMILoride 5 MG TABLET PO SCH (10:23)
[2016-10-28] MEDS: LACTOBACILLUS 1 CAPSULE PO SCH (10:23)
[2016-10-28] MEDS: VANCOMYCIN 1,000 MG in 0.9 % SODIUM CHLORIDE 250 ML IV SCH ×2 (10:50→22:30)
[2016-10-28] MEDS: HYDROmorphone 2 MG TABLET PO PRN ×3 (13:30→22:22)
[2016-10-28] MEDS: VANCOMYCIN 1 GM VIAL TOPICAL SCH (14:26)
--- NOTE | 2016-10-28 14:55 | General Surgery Progress Note ---
Subjective Patient reports: still having pain, pain is less, flatus, bowel movement, diarrhea, nausea Narrative: Note initiated : 10/28/16 at 2:53 pm Service Date, if different from initiated Date: [] Patient: Kaya High 41 y/o F admitted on 10/24/16 for Abd Pain/Abdominal Abscess. Chief Complaint: [Patient is doing well. She has no abdominal discomfort. She has pain around her Port-A-Cath system however this is due to this surgery itself. The catheter flushes and aspirates normally. There is no induration around the catheter sites over the port site.] Objective Temp Pulse Resp BP Pulse Ox 98.6 F 63 16 126/61 95 10/28/16 11:54 10/28/16 13:00 10/28/16 11:54 10/28/16 13:00 10/28/16 13:00 - Additional Data Intake & Output - Last 24 hours: Intake & Output 10/26/16 10/27/16 10/28/16 10/29/16 05:59 05:59 05:59 05:59 Intake Total 4650 / 4650 3945 / 3945 3039 / 3039 1230 / 1230 Output Total 2525 / 2525 2600 / 2600 1151 / 1151 750 / 750 Balance 2125 / 2125 1345 / 1345 1888 / 1888 480 / 480 Weight 314 lb 1.6 oz 321 lb 8 oz 322 lb 322 lb - Labs 10/28/16 04:45 10/28/16 04:45 Diabetes panel 10/28/16 Range/Units 04:45 Sodium 141 (133-145) mmol/L Potassium 3.8 (3.3-5.1) mmol/L Chloride 108 (96-108) mmol/L Carbon Dioxide 24 (22-30) mmol/L BUN 11 (6-20) mg/dl Creatinine 0.8 (0.6-1.1) mg/dl Glucose 109 H (70-105) mg/dL Calcium 8.6 (8.6-10.4) mg/dl AST 10 (0-37) U/l ALT 8 (0-40) U/l Alkaline Phosphatase 73 (39-117) U/L Total Protein 6.1 (5.9-8.4) gm/dL Albumin 3.1 L (3.2-5.2) gm/dL Triglycerides 220 H (<150) mg/dl Calcium panel 10/28/16 Range/Units 04:45 Calcium 8.6 (8.6-10.4) mg/dl Phosphorus 3.9 (2.7-4.5) mg/dL Albumin 3.1 L (3.2-5.2) gm/dL Pituitary panel 10/28/16 Range/Units 04:45 Sodium 141 (133-145) mmol/L Potassium 3.8 (3.3-5.1) mmol/L Chloride 108 (96-108) mmol/L Carbon Dioxide 24 (22-30) mmol/L BUN 11 (6-20) mg/dl Creatinine 0.8 (0.6-1.1) mg/dl Glucose 109 H (70-105) mg/dL Calcium 8.6 (8.6-10.4) mg/dl Adrenal panel 10/28/16 Range/Units 04:45 Sodium 141 (133-145) mmol/L Potassium 3.8 (3.3-5.1) mmol/L Chloride 108 (96-108) mmol/L Carbon Dioxide 24 (22-30) mmol/L BUN 11 (6-20) mg/dl Creatinine 0.8 (0.6-1.1) mg/dl Glucose 109 H (70-105) mg/dL Calcium 8.6 (8.6-10.4) mg/dl Total Bilirubin < 0.2 (0.0-1.0) mg/dL AST 10 (0-37) U/l ALT 8 (0-40) U/l Alkaline Phosphatase 73 (39-117) U/L Total Protein 6.1 (5.9-8.4) gm/dL Albumin 3.1 L (3.2-5.2) gm/dL Assessment and Plan (1) Chronic diarrhea Status: Acute Current Visit: No (2) Abdominal wall abscess at site of surgical wound Problem details: 06/10/2016-full thickness excision of abdominal wall with surgical debridement and primary closure. Status: Acute Assessment and plan: Continued stable and improved. Will continue to treat pending final cultures. Current Visit: No (3) Hypertensive disorder Status: Chronic Current Visit: No (4) Obstructive sleep apnea Status: Chronic Current Visit: No (5) Depressive disorder Status: Deleted Current Visit: No (6) Depression with anxiety Status: Chronic Current Visit: No (7) Morbid obesity Status: Chronic Current Visit: No (8) Pulmonary embolus Problem details: Treated with anticoagulation Status: Chronic Current Visit : No - Time Spent With Patient Total time spent is greater than 50% in coordination of care (as documented) at patient's floor/unit and/or counseling patient:
[2016-10-28] MEDS: METOPROLOL SUCCINATE 25 MG TAB.XL.24H PO SCH (20:35)
[2016-10-29] MEDS: ACETAMINOPHEN 1,000 MG/100 ML BOTTLE IV SCH ×5 (00:26→23:54)
[2016-10-29] MEDS: KETOROLAC 15 MG/ML VIAL IV SCH ×4 (03:18→21:52)
[2016-10-29] MEDS: HYDROmorphone 2 MG TABLET PO PRN ×5 (03:36→21:50)
[2016-10-29 06:21] LABS: Mean Cell Volume 74.8 fL (80.0-100.0); Mean Corpuscular HGB Conc 32.2 g/dL (31.0-36.0); Mean Corpuscular Hemoglobin 24.1 pg (26.0-34.0); Platelet Count 292 K/mcL (140-440); RBC 3.54 M/mcL (4.00-5.20)
[2016-10-29 06:42] LABS: ALT/SGPT 8 U/l (0-40); Alkaline Phosphatase 75 U/L (39-117); Bilirubin,Direct < 0.2 mg/dL (0.0-0.3); Blood Urea Nitrogen 9 mg/dl (6-20); Gamma Glutamyl Transpeptidase 38 U/L (5-36); Magnesium 1.6 mg/dL (1.6-2.5); Uric Acid 8.2 mg/dL (2.5-8.0)
[2016-10-29 07:00] LABS: Anisocytosis 1+ (NONE SEEN); Band Neutrophils % 1 % (0-10); Eosinophils % (Manual) 4 % (0-7); Hypochromasia 1+ (NONE SEEN); Lymphocytes % 31 % (15-49); Monocytes % (Manual) 3 % (1-12); Platelet Estimate NORMAL (NORMAL); RBC Morphology ABNORM (NORMAL); Segmented Neutrophils % 61 % (38-78)
[2016-10-29] MEDS: ERTAPENEM 1 GM in 0.9 % SODIUM CHLORIDE 50 ML IV SCH (08:58)
[2016-10-29] MEDS: POTASSIUM CHLORIDE 20 MEQ TABLET PO SCH ×2 (08:58→16:29)
[2016-10-29] MEDS: SERTRALINE 50 MG TABLET PO SCH (08:59)
[2016-10-29] MEDS: aMILoride 5 MG TABLET PO SCH (08:59)
[2016-10-29] MEDS: busPIRone 5 MG TABLET PO SCH ×3 (08:59→21:51)
[2016-10-29] MEDS: FLUCONAZOLE 100 MG TABLET PO SCH (08:59)
[2016-10-29] MEDS: FAMOTIDINE 20 MG TABLET PO SCH ×2 (09:00→21:52)
[2016-10-29] MEDS: LACTOBACILLUS 1 CAPSULE PO SCH (09:00)
[2016-10-29] MEDS: LISINOPRIL 10 MG TABLET PO SCH ×2 (09:00→21:50)
[2016-10-29] MEDS: VANCOMYCIN 1,000 MG in 0.9 % SODIUM CHLORIDE 250 ML IV SCH ×2 (09:38→22:14)
--- NOTE | 2016-10-29 12:16 | General Surgery Progress Note ---
Subjective Patient reports: feels better, still having pain, pain is less, tolerating a regular diet, flatus, bowel movement, afebrile Narrative: Note initiated : 10/29/16 at 12:13 pm Service Date, if different from initiated Date: [] Patient: Kaya High 41 y/o F admitted on 10/24/16 for Abd Pain/Abdominal Abscess. Chief Complaint: [Patient has had a complaint of pain around her left sided port system since yesterday. She states that she is having severe pain extending into her shoulder and her chest wall. There is no associated swelling of her breast her arm or the chest wall surrounding the port site. The port infuses well however it does not aspirate. The port was slightly repositioned and it now aspirates and infusions without difficulty. Her abdominal pain is well controlled. She does not have nausea or vomiting. She is having regular bowel movements. The SAMMI drainage is more serous sanguinous and of less volume.] Objective Temp Pulse Resp BP Pulse Ox 97.3 F 57 L 16 142/84 96 10/29/16 11:15 10/29/16 04:00 10/29/16 11:15 10/29/16 11:15 10/29/16 11:15 - Additional Data Intake & Output - Last 24 hours: Intake & Output 10/27/16 10/28/16 10/29/16 10/30/16 05:59 05:59 05:59 05:59 Intake Total 3945 / 3945 3039 / 3039 2630 / 2630 Output Total 2600 / 2600 1151 / 1151 2205 / 2205 450 / 450 Balance 1345 / 1345 1888 / 1888 425 / 425 -450 / -450 Weight 321 lb 8 oz 322 lb 322 lb 8 oz - General physical appearance moderate distress, moderate pain - Eyes PERRL - ENT no congestion - Neck no venous distension - Respiratory clear to auscultation, other (Port site left upper chest is unremarkable and the port flushes and aspirates without difficulty) - Cardiovascular Cardiovascular exam: Present: normal rate and rhythm, RRR, +S1, +S2. Absent: JVD - Abdomen tender, distended (Abdomen is mildly distended but with good active bowel sounds. There is mild tenderness of the incision but otherwise her abdominal exam is benign) - Neurologic normal coordination, normal sensation - Musculoskeletal normal gait, normal posture - Psychiatric oriented to time, oriented to person, oriented to place, speech is normal, memory intact - Labs 10/29/16 05:21 10/29/16 05:21 Diabetes panel 10/29/16 Range/Units 05:21 Sodium 141 (133-145) mmol/L Potassium 4.1 (3.3-5.1) mmol/L Chloride 108 (96-108) mmol/L Carbon Dioxide 23 (22-30) mmol/L BUN 9 (6-20) mg/dl Creatinine 0.7 (0.6-1.1) mg/dl Glucose 85 (70-105) mg/dL Calcium 8.5 L (8.6-10.4) mg/dl AST 10 (0-37) U/l ALT 8 (0-40) U/l Alkaline Phosphatase 75 (39-117) U/L Total Protein 6.1 (5.9-8.4) gm/dL Albumin 3.0 L (3.2-5.2) gm/dL Triglycerides 271 H (<150) mg/dl Calcium panel 10/29/16 Range/Units 05:21 Calcium 8.5 L (8.6-10.4) mg/dl Phosphorus 4.7 H (2.7-4.5) mg/dL Albumin 3.0 L (3.2-5.2) gm/dL Pituitary panel 10/29/16 Range/Units 05:21 Sodium 141 (133-145) mmol/L Potassium 4.1 (3.3-5.1) mmol/L Chloride 108 (96-108) mmol/L Carbon Dioxide 23 (22-30) mmol/L BUN 9 (6-20) mg/dl Creatinine 0.7 (0.6-1.1) mg/dl Glucose 85 (70-105) mg/dL Calcium 8.5 L (8.6-10.4) mg/dl Adrenal panel 10/29/16 Range/Units 05:21 Sodium 141 (133-145) mmol/L Potassium 4.1 (3.3-5.1) mmol/L Chloride 108 (96-108) mmol/L Carbon Dioxide 23 (22-30) mmol/L BUN 9 (6-20) mg/dl Creatinine 0.7 (0.6-1.1) mg/dl Glucose 85 (70-105) mg/dL Calcium 8.5 L (8.6-10.4) mg/dl Total Bilirubin < 0.2 (0.0-1.0) mg/dL AST 10 (0-37) U/l ALT 8 (0-40) U/l Alkaline Phosphatase 75 (39-117) U/L Total Protein 6.1 (5.9-8.4) gm/dL Albumin 3.0 L (3.2-5.2) gm/dL Assessment and Plan (1) Chronic diarrhea Status: Acute Assessment and plan: Stable without difficulty Current Visit: No (2) Abdominal wall abscess at site of surgical wound Problem details: 06/10/2016-full thickness excision of abdominal wall with surgical debridement and primary closure. Status: Acute Assessment and plan: Continued stable and improved. Cultures grew out Staphylococcus aureus which will probably be MSSA. She is on adequate antibiotic coverage for the time being. We will continue this until Monday and make plans for discharge on that date. Current Visit: No (3) Hypertensive disorder Status: Chronic Current Visit: No (4) Obstructive sleep apnea Status: Chronic Current Visit: No (5) Depressive disorder Status: Deleted Current Visit: No (6) Depression with anxiety Status: Chronic Current Visit: No (7) Morbid obesity Status: Chronic Current Visit: No (8) Pulmonary embolus Problem details: Treated with anticoagulation Status: Chronic Current Visit : No - Time Spent With Patient Total time spent is greater than 50% in coordination of care (as documented) at patient's floor/unit and/or counseling patient:
[2016-10-29] MEDS: VANCOMYCIN 1 GM VIAL TOPICAL SCH (14:28)
[2016-10-29] MEDS: METOPROLOL SUCCINATE 25 MG TAB.XL.24H PO SCH (21:50)
[2016-10-29] MEDS: traZODone HCL 50 MG TABLET PO SCH (21:50)
[2016-10-30] MEDS: HYDROmorphone 2 MG TABLET PO PRN ×6 (02:11→22:00)
[2016-10-30] MEDS: KETOROLAC 15 MG/ML VIAL IV SCH ×2 (02:53→09:05)
[2016-10-30] MEDS: ACETAMINOPHEN 1,000 MG/100 ML BOTTLE IV SCH ×3 (05:52→18:17)
[2016-10-30 07:39] LABS: ALT/SGPT 9 U/l (0-40); Albumin 2.8 gm/dL (3.2-5.2); Albumin/Globulin Ratio 0.8 (1.0-2.3); Alkaline Phosphatase 77 U/L (39-117); Bilirubin,Direct < 0.2 mg/dL (0.0-0.3); Blood Urea Nitrogen 11 mg/dl (6-20); Gamma Glutamyl Transpeptidase 36 U/L (5-36); Magnesium 1.6 mg/dL (1.6-2.5)
[2016-10-30] MEDS: ERTAPENEM 1 GM in 0.9 % SODIUM CHLORIDE 50 ML IV SCH (09:01)
[2016-10-30] MEDS: busPIRone 5 MG TABLET PO SCH ×3 (09:02→21:59)
[2016-10-30] MEDS: FLUCONAZOLE 100 MG TABLET PO SCH (09:02)
[2016-10-30] MEDS: POTASSIUM CHLORIDE 20 MEQ TABLET PO SCH ×2 (09:02→18:16)
[2016-10-30] MEDS: FAMOTIDINE 20 MG TABLET PO SCH ×2 (09:02→22:00)
[2016-10-30] MEDS: LACTOBACILLUS 1 CAPSULE PO SCH (09:02)
[2016-10-30] MEDS: LISINOPRIL 10 MG TABLET PO SCH ×2 (09:02→21:59)
[2016-10-30] MEDS: aMILoride 5 MG TABLET PO SCH (09:03)
[2016-10-30] MEDS: SERTRALINE 50 MG TABLET PO SCH (09:03)
--- NOTE | 2016-10-30 10:52 | General Surgery Progress Note ---
Subjective Narrative: Note initiated : 10/30/16 at 10:51 am Service Date, if different from initiated Date: [] Patient: Kaya High 41 y/o F admitted on 10/24/16 for Abd Pain/Abdominal Abscess. Chief Complaint: [Patient is stable. She has less discomfort in the area of her Port-A-Cath. The side port of the Port-A-Cath is leaking but the leak is controlled with a luer lock. Her abdominal pain is fairly well controlled. She does not have nausea. She is having regular bowel movements and flatus. The MSSA is sensitive to most antibiotics and that will be multiple choices for oral antibiotics. SAMMI drainage is continuing to improve. She is advised that she will probably be discharged in the morning.]. Objective Temp Pulse Resp BP Pulse Ox 98.8 F 61 16 128/89 97 10/30/16 06:48 10/30/16 03:05 10/30/16 06:48 10/30/16 06:48 10/30/16 06:48 - Additional Data Intake & Output - Last 24 hours: Intake & Output 10/28/16 10/29/16 10/30/16 10/31/16 05:59 05:59 05:59 05:59 Intake Total 3039 / 3039 2630 / 2630 1660 / 1660 Output Total 1151 / 1151 2205 / 2205 2202 / 2202 700 / 700 Balance 1888 / 1888 425 / 425 -542 / -542 -700 / -700 Weight 322 lb 322 lb 8 oz 323 lb 6.4 oz - General physical appearance no distress, moderate pain - Eyes PERRL - ENT no congestion - Neck no venous distension - Respiratory normal expansion, normal respiratory effort, clear to auscultation - Cardiovascular Cardiovascular exam: Present: normal rate and rhythm, RRR, +S1, +S2. Absent: JVD - Abdomen soft, non tender, distended (Abdomen is mildly distended but she has good active bowel sounds. Her incision looks very good. There is no evidence of secondary infection.) - Integumentary no rash, no growths, no abnormal pigmentation - Neurologic normal coordination, normal sensation - Musculoskeletal normal gait, normal posture - Psychiatric oriented to time, oriented to person, oriented to place, speech is normal, memory intact - Labs 10/29/16 05:21 10/30/16 05:07 Diabetes panel 10/30/16 Range/Units 05:07 Sodium 142 (133-145) mmol/L Potassium 3.7 (3.3-5.1) mmol/L Chloride 105 (96-108) mmol/L Carbon Dioxide 23 (22-30) mmol/L BUN 11 (6-20) mg/dl Creatinine 0.7 (0.6-1.1) mg/dl Glucose 95 (70-105) mg/dL Calcium 8.3 L (8.6-10.4) mg/dl AST 9 (0-37) U/l ALT 9 (0-40) U/l Alkaline Phosphatase 77 (39-117) U/L Total Protein 6.1 (5.9-8.4) gm/dL Albumin 2.8 L (3.2-5.2) gm/dL Triglycerides 342 H (<150) mg/dl Calcium panel 10/30/16 Range/Units 05:07 Calcium 8.3 L (8.6-10.4) mg/dl Phosphorus 4.8 H (2.7-4.5) mg/dL Albumin 2.8 L (3.2-5.2) gm/dL Pituitary panel 10/30/16 Range/Units 05:07 Sodium 142 (133-145) mmol/L Potassium 3.7 (3.3-5.1) mmol/L Chloride 105 (96-108) mmol/L Carbon Dioxide 23 (22-30) mmol/L BUN 11 (6-20) mg/dl Creatinine 0.7 (0.6-1.1) mg/dl Glucose 95 (70-105) mg/dL Calcium 8.3 L (8.6-10.4) mg/dl Adrenal panel 10/30/16 Range/Units 05:07 Sodium 142 (133-145) mmol/L Potassium 3.7 (3.3-5.1) mmol/L Chloride 105 (96-108) mmol/L Carbon Dioxide 23 (22-30) mmol/L BUN 11 (6-20) mg/dl Creatinine 0.7 (0.6-1.1) mg/dl Glucose 95 (70-105) mg/dL Calcium 8.3 L (8.6-10.4) mg/dl Total Bilirubin 0.2 (0.0-1.0) mg/dL AST 9 (0-37) U/l ALT 9 (0-40) U/l Alkaline Phosphatase 77 (39-117) U/L Total Protein 6.1 (5.9-8.4) gm/dL Albumin 2.8 L (3.2-5.2) gm/dL Assessment and Plan (1) Chronic diarrhea Status: Acute Assessment and plan: Stable without difficulty Current Visit: No (2) Abdominal wall abscess at site of surgical wound Problem details: 06/10/2016-full thickness excision of abdominal wall with surgical debridement and primary closure. Status: Acute Assessment and plan: Continued stable and improved. Cultures grew out MSSA which is sensitive to multiple oral antibiotics. We will continue IV tonight and make arrangements for discharge home tomorrow on long-term oral antibiotics. Current Visit: No (3) Hypertensive disorder Status: Chronic Current Visit: No (4) Obstructive sleep apnea Status: Chronic Current Visit: No (5) Depressive disorder Status: Deleted Current Visit: No (6) Depression with anxiety Status: Chronic Current Visit: No (7) Morbid obesity Status: Chronic Current Visit: No (8) Pulmonary embolus Problem details: Treated with anticoagulation Status: Chronic Current Visit : No - Time Spent With Patient Total time spent is greater than 50% in coordination of care (as documented) at patient's floor/unit and/or counseling patient:
[2016-10-30] MEDS: VANCOMYCIN 1,000 MG in 0.9 % SODIUM CHLORIDE 250 ML IV SCH ×2 (11:01→22:00)
[2016-10-30] MEDS: METOPROLOL SUCCINATE 25 MG TAB.XL.24H PO SCH (21:59)
[2016-10-30] MEDS: traZODone HCL 50 MG TABLET PO SCH (21:59)
[2016-10-31] MEDS: ACETAMINOPHEN 1,000 MG/100 ML BOTTLE IV SCH ×3 (00:08→13:02)
[2016-10-31] MEDS: HYDROmorphone 2 MG TABLET PO PRN ×4 (02:39→15:39)
[2016-10-31 05:51] LABS: ALT/SGPT 8 U/l (0-40); Alkaline Phosphatase 77 U/L (39-117); Bilirubin,Direct < 0.2 mg/dL (0.0-0.3); Blood Urea Nitrogen 10 mg/dl (6-20); Gamma Glutamyl Transpeptidase 35 U/L (5-36); Magnesium 1.6 mg/dL (1.6-2.5); Uric Acid 7.7 mg/dL (2.5-8.0)
[2016-10-31] MEDS: FLUCONAZOLE 100 MG TABLET PO SCH (09:00)
[2016-10-31] MEDS: POTASSIUM CHLORIDE 20 MEQ TABLET PO SCH (09:00)
[2016-10-31] MEDS: FAMOTIDINE 20 MG TABLET PO SCH (09:00)
[2016-10-31] MEDS: SERTRALINE 50 MG TABLET PO SCH (09:00)
[2016-10-31] MEDS: LISINOPRIL 10 MG TABLET PO SCH (09:00)
[2016-10-31] MEDS: busPIRone 5 MG TABLET PO SCH ×2 (09:01→14:19)
[2016-10-31] MEDS: LACTOBACILLUS 1 CAPSULE PO SCH (09:08)
[2016-10-31] MEDS: aMILoride 5 MG TABLET PO SCH (09:09)
[2016-10-31] MEDS: ERTAPENEM 1 GM in 0.9 % SODIUM CHLORIDE 50 ML IV SCH (09:09)
[2016-10-31] MEDS: VANCOMYCIN 1,000 MG in 0.9 % SODIUM CHLORIDE 250 ML IV SCH (10:57)
--- NOTE | 2016-10-31 14:50 | Discharge Summary ---
Providers - Providers Patient information: Note initiated : 10/31/16 at 2:45 pm Service Date, if different from initiated Date: [] Patient: Kaya High 41 y/o F admitted on 10/24/16 for Abd Pain/Abdominal Abscess. 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 Patient has had multiple hospitalizations and procedures to try to salvage the mesh however she has failed each time. She is growing a methicillin sensitive Staphylococcus aureus and it is felt that even with prolonged antibiotics that removal of the mesh is the only option. Patient is admitted and will undergo antibiotics followed by placement of the Port-A-Cath for permanent IV access as well as exploration with removal of the mesh. She underwent these procedures without difficulty. The mesh was simply being rejected and only be periphery of the mesh was adherent. There were large volumes of thick gelatinous tissue above and below the mesh. All visible mesh was removed and all the gelatinous debris was removed. Repeat cultures grew out MSSA. She has done well and is now stable for discharge home. Discharge diagnosis: Mesh graft infection Secondary discharge diagnosis: History of recurrent pulmonary embolus Reason for admission: Chronic mesh graft infection Procedures: Left subclavian Port-A-Cath insertion Exploration of abdominal wall with extraction of mesh graft Complications: None Exam Temp Pulse Resp BP Pulse Ox 98.5 F 66 16 137/88 94 10/31/16 11:45 10/31/16 03:01 10/31/16 11:45 10/31/16 11:45 10/31/16 11:45 - General physical appearance well developed, well nourished, no distress - Eyes PERRL, normal ocular movement - ENT normal pinna, normal nares, normal mucosa, no hearing loss, no congestion - Head Head exam IM: Present: atraumatic, normocephalic - Neck no masses, no bruits, trachea midline, no lymphadectomy, no venous distension - Cardiovascular Cardiovascular exam IM: Present: normal rate and rhythm - Respiratory normal expansion, normal respiratory effort, clear to percussion, clear to auscultation - Abdomen Abdomen: Present: soft, tender (Incision is mildly tender but healing uneventfully. SAMMI drains with small amount of serosanguineous drainage but no purulence), bowel sounds Hernia: Present: none - Integumentary Present: no rash, no growths, no abnormal pigmentation - Neurologic Present: normal coordination, normal sensation - Musculoskeletal Present: normal gait, normal posture - Psychiatric Present: oriented to time, oriented to person, oriented to place, speech is normal, memory intact Discharge Plan - Patient/Caregiver Discharge Instructions Activity: increase activity as tolerated Diet: Regular Diet Additional Instructions: Changed dressing around drain as needed Follow-up in the office on 17 November 2016 Prescriptions: Clindamycin [Cleocin] 300 mg PO QID #60 capsule Fluconazole [Diflucan] 100 mg PO DAILY #7 tablet - Follow up Plan Follow up with: Jodi Phillips MD [Physician] - 11/10/16 9:15 am Disposition: Home, Self-Care Prognosis: Good Rehab Potential: Good I certify that the patient requires SNF services.: No Overall status at discharge: patient is not back to baseline Pending Studies Resuscitation Status Full Code Diet Regular Diet Start Carola Oct 27 Dinner Amiloride HCl (Amiloride) 5 mg PO QDAY FORMERLY [facility], 1928[facility] Last Admin: 10/31/16 09:09 Dose: 5 mg Admin: 10/30/16 09:03 Dose: 5 mg Admin: 10/29/16 08:59 Dose: 5 mg Admin: 10/28/16 10:23 Dose: 5 mg Admin: 10/27/16 08:35 Dose: 5 mg Buspirone HCl (Buspar) 7.5 mg PO TID [facility], [facility] Last Admin: 10/31/16 14:19 Dose: 7.5 mg Admin: 10/31/16 09:01 Dose: 7.5 mg Admin: 10/30/16 21:59 Dose: 7.5 mg Admin: 10/30/16 14:13 Dose: 7.5 mg Admin: 10/30/16 09:02 Dose: 7.5 mg Admin: 10/29/16 21:51 Dose: 7.5 mg Admin: 10/29/16 16:29 Dose: 7.5 mg Admin: 10/29/16 08:59 Dose: 7.5 mg Admin: 10/28/16 20:34 Dose: 7.5 mg Admin: 10/28/16 15:35 Dose: 7.5 mg Admin: 10/28/16 10:22 Dose: 7.5 mg Admin: 10/27/16 20:30 Dose: 7.5 mg Admin: 10/27/16 14:40 Dose: 7.5 mg Admin: 10/27/16 08:27 Dose: 7.5 mg Admin: 10/26/16 20:18 Dose: 7.5 mg Famotidine (Pepcid) 20 mg PO BID [facility], [facility] Last Admin: 10/31/16 09:00 Dose: 20 mg Admin: 10/30/16 22:00 Dose: 20 mg Admin: 10/30/16 09:02 Dose: 20 mg Admin: 10/29/16 21:52 Dose: 20 mg Admin: 10/29/16 09:00 Dose: 20 mg Admin: 10/28/16 20:35 Dose: 20 mg Admin: 10/28/16 10:22 Dose: 20 mg Admin: 10/27/16 20:30 Dose: 20 mg Admin: 10/27/16 08:28 Dose: 20 mg Admin: 10/26/16 20:31 Dose: 20 mg Fluconazole (Diflucan) 100 mg PO DAILY [facility], [facility] Last Admin: 10/31/16 09:00 Dose: 100 mg Admin: 10/30/16 09:02 Dose: 100 mg Admin: 10/29/16 08:59 Dose: 100 mg Admin: 10/28/16 10:22 Dose: 100 mg Admin: 10/27/16 13:46 Dose: 100 mg Heparin Sodium (Porcine) (Heparin Flush) 2 ml IV Q12 [facility], [facility] Last Admin: 10/31/16 14:19 Dose: 2 ml Admin: 10/31/16 09:05 Dose: 2 ml Admin: 10/30/16 22:01 Dose: 2 ml Admin: 10/30/16 10:14 Dose: 2 ml Admin: 10/29/16 21:52 Dose: 2 ml Admin: 10/29/16 09:38 Dose: 2 ml Admin: 10/28/16 20:36 Dose: 2 ml Hydromorphone HCl (Dilaudid) 1 mg IV Q2HP PRN PRN Reason: Pain Last Admin: 10/28/16 20:37 Dose: 1 mg Admin: 10/28/16 10:59 Dose: 1 mg Admin: 10/28/16 08:08 Dose: 1 mg Admin: 10/27/16 20:29 Dose: 1 mg Admin: 10/27/16 17:25 Dose: 1 mg Admin: 10/27/16 14:41 Dose: 1 mg Admin: 10/27/16 12:27 Dose: 1 mg Admin: 10/27/16 08:24 Dose: 1 mg Admin: 10/26/16 23:07 Dose: 1 mg Admin: 10/26/16 20:14 Dose: 1 mg Admin: 10/26/16 17:02 Dose: 1 mg Hydromorphone HCl (Dilaudid) 4 mg PO Q4HP PRN PRN Reason: Pain Last Admin: 10/31/16 10:57 Dose: 4 mg Admin: 10/31/16 06:48 Dose: 4 mg Admin: 10/31/16 02:39 Dose: 4 mg Admin: 10/30/16 22:00 Dose: 4 mg Admin: 10/30/16 18:16 Dose: 4 mg Admin: 10/30/16 14:13 Dose: 4 mg Admin: 10/30/16 10:12 Dose: 4 mg Admin: 10/30/16 06:18 Dose: 4 mg Admin: 10/30/16 02:11 Dose: 4 mg Admin: 10/29/16 21:50 Dose: 4 mg Admin: 10/29/16 17:10 Dose: 4 mg Admin: 10/29/16 13:04 Dose: 4 mg Admin: 10/29/16 08:59 Dose: 4 mg Admin: 10/29/16 03:36 Dose: 4 mg Admin: 10/28/16 22:22 Dose: 4 mg Admin: 10/28/16 17:39 Dose: 4 mg Admin: 10/28/16 13:30 Dose: 4 mg Ertapenem 1 gm/ Sodium (Chloride) 50 mls @ 100 mls/hr IV Q24H VANDANA Last Admin: 10/31/16 09:09 Dose: 100 mls/hr Infusion: 10/30/16 09:31 Dose: 100 mls/hr Admin: 10/30/16 09:01 Dose: 100 mls/hr Infusion: 10/29/16 09:28 Dose: 100 mls/hr Admin: 10/29/16 08:58 Dose: 100 mls/hr Infusion: 10/28/16 12:21 Dose: 100 mls/hr Admin: 10/28/16 10:12 Dose: 100 mls/hr Infusion: 10/27/16 09:05 Dose: 100 mls/hr Admin: 10/27/16 08:35 Dose: 100 mls/hr Vancomycin HCl 1,000 mg/ (Sodium Chloride) 250 mls @ 250 mls/hr IV Q12H VANDANA Last Admin: 10/31/16 10:57 Dose: 250 mls/hr Infusion: 10/30/16 23:00 Dose: 250 mls/hr Admin: 10/30/16 22:00 Dose: 250 mls/hr Infusion: 10/30/16 12:01 Dose: 250 mls/hr Admin: 10/30/16 11:01 Dose: 250 mls/hr Infusion: 10/29/16 23:14 Dose: 250 mls/hr Admin: 10/29/16 22:14 Dose: 250 mls/hr Infusion: 10/29/16 10:38 Dose: 250 mls/hr Admin: 10/29/16 09:38 Dose: 250 mls/hr Infusion: 10/28/16 23:30 Dose: 250 mls/hr Admin: 10/28/16 22:30 Dose: 250 mls/hr Infusion: 10/28/16 12:19 Dose: 250 mls/hr Admin: 10/28/16 10:50 Dose: 250 mls/hr Infusion: 10/28/16 10:50 Dose: 0 mls/hr Infusion: 10/27/16 22:20 Dose: 0 mls/hr Admin: 10/27/16 22:01 Dose: 250 mls/hr Infusion: 10/27/16 10:45 Dose: 250 mls/hr Admin: 10/27/16 09:45 Dose: 250 mls/hr Infusion: 10/26/16 22:51 Dose: 250 mls/hr Admin: 10/26/16 21:51 Dose: 250 mls/hr Acetaminophen (Ofirmev) 1,000 mg in 100 mls @ 200 mls/hr IV Q6 [facility], [facility] Last Admin: 10/31/16 13:02 Dose: 200 mls/hr Infusion: 10/31/16 06:04 Dose: 200 mls/hr Admin: 10/31/16 05:34 Dose: 200 mls/hr Infusion: 10/31/16 00:38 Dose: 200 mls/hr Admin: 10/31/16 00:08 Dose: 200 mls/hr Infusion: 10/30/16 18:47 Dose: 200 mls/hr Admin: 10/30/16 18:17 Dose: 200 mls/hr Infusion: 10/30/16 14:20 Dose: 200 mls/hr Admin: 10/30/16 13:50 Dose: 200 mls/hr Infusion: 10/30/16 06:22 Dose: 200 mls/hr Admin: 10/30/16 05:52 Dose: 200 mls/hr Infusion: 10/30/16 00:24 Dose: 200 mls/hr Admin: 10/29/16 23:54 Dose: 200 mls/hr Infusion: 10/29/16 17:40 Dose: 200 mls/hr Admin: 10/29/16 17:10 Dose: 200 mls/hr Infusion: 10/29/16 12:52 Dose: 200 mls/hr Admin: 10/29/16 12:22 Dose: 200 mls/hr Infusion: 10/29/16 06:37 Dose: 200 mls/hr Admin: 10/29/16 06:07 Dose: 200 mls/hr Infusion: 10/29/16 00:56 Dose: 200 mls/hr Admin: 10/29/16 00:26 Dose: 200 mls/hr Infusion: 10/28/16 18:10 Dose: 200 mls/hr Admin: 10/28/16 17:40 Dose: 200 mls/hr Infusion: 10/28/16 12:49 Dose: 200 mls/hr Admin: 10/28/16 12:19 Dose: 200 mls/hr Admin: 10/28/16 05:55 Dose: Admin: 10/27/16 23:31 Dose: Infusion: 10/27/16 17:54 Dose: 200 mls/hr Admin: 10/27/16 17:24 Dose: 200 mls/hr Infusion: 10/27/16 12:55 Dose: 200 mls/hr Admin: 10/27/16 12:25 Dose: 200 mls/hr Infusion: 10/27/16 06:15 Dose: 200 mls/hr Admin: 10/27/16 05:42 Dose: 200 mls/hr Infusion: 10/27/16 01:09 Dose: 200 mls/hr Admin: 10/27/16 00:39 Dose: 200 mls/hr Infusion: 10/26/16 19:07 Dose: 200 mls/hr Admin: 10/26/16 18:37 Dose: 200 mls/hr Lactobacillus Rhamnosus (Culturelle) 1 cap PO DAILY [facility], [facility] Last Admin: 10/31/16 09:08 Dose: 1 cap Admin: 10/30/16 09:02 Dose: 1 cap Admin: 10/29/16 09:00 Dose: 1 cap Admin: 10/28/16 10:23 Dose: 1 cap Admin: 10/27/16 08:35 Dose: 1 cap Lisinopril (Zestril) 10 mg PO BID [facility], [facility] Last Admin: 10/31/16 09:00 Dose: 10 mg Admin: 10/30/16 21:59 Dose: 10 mg Admin: 10/30/16 09:02 Dose: 10 mg Admin: 10/29/16 21:50 Dose: 10 mg Admin: 10/29/16 09:00 Dose: 10 mg Admin: 10/28/16 20:33 Dose: 10 mg Admin: 10/28/16 10:22 Dose: 10 mg Admin: 10/27/16 20:31 Dose: 10 mg Admin: 10/27/16 08:28 Dose: 10 mg Admin: 10/26/16 20:31 Dose: 10 mg Loperamide HCl (Imodium) 2 mg PO Q8HP PRN PRN Reason: Diarrhea Last Admin: 10/31/16 12:22 Dose: 2 mg Metoprolol Succinate (Toprol Xl) 25 mg PO [facility] Last Admin: 10/30/16 21:59 Dose: 25 mg Admin: 10/29/16 21:50 Dose: 25 mg Admin: 10/28/16 20:35 Dose: 25 mg Admin: 10/27/16 20:31 Dose: 25 mg Admin: 10/26/16 20:31 Dose: 25 mg Ondansetron HCl (Zofran) 4 mg IV Q6HP PRN PRN Reason: Nausea And Vomiting Last Admin: 10/28/16 08:08 Dose: 4 mg Admin: 10/27/16 09:53 Dose: 4 mg Ondansetron HCl (Zofran Odt) 4 mg SL Q4HP PRN PRN Reason: Nausea Last Admin: 10/30/16 09:13 Dose: 4 mg Potassium Chloride (Kdur) 20 meq PO BIDCC [facility], [facility] Last Admin: 10/31/16 09:00 Dose: 20 meq Admin: 10/30/16 18:16 Dose: 20 meq Admin: 10/30/16 09:02 Dose: 20 meq Admin: 10/29/16 16:29 Dose: 20 meq Admin: 10/29/16 08:58 Dose: 20 meq Admin: 10/28/16 17:41 Dose: 20 meq Admin: 10/28/16 08:09 Dose: 20 meq Admin: 10/27/16 17:24 Dose: 20 meq Admin: 10/27/16 08:24 Dose: 20 meq Admin: 10/26/16 17:03 Dose: 20 meq Sertraline HCl (Zoloft) 100 mg PO DAILY [facility] Last Admin: 10/31/16 09:00 Dose: 100 mg Admin: 10/30/16 09:03 Dose: 100 mg Admin: 10/29/16 08:59 Dose: 100 mg Admin: 10/28/16 10:22 Dose: 100 mg Admin: 10/27/16 08:28 Dose: 100 mg Trazodone HCl (Desyrel) 50 mg PO QHS [facility] Last Admin: 10/30/16 21:59 Dose: 50 mg Admin: 10/29/16 21:50 Dose: 50 mg Admin: 10/28/16 20:36 Dose: 50 mg Admin: 10/28/16 00:11 Dose: Admin: 10/27/16 00:33 Dose: 50 mg Shift Summary 10/31/16 03:03 Shift Summary by Maggie Gamino Patient is A&Ox4. Up ad yovany. VSS. No c/o pain to PAC to left chest. C/O pain to abdomen throughout the night. PO Dilaudid 4mg was given Q4H. She also received scheduled IV Tylenol. Provided patient with K-pad and she stated that it helped decrease the pain to abdomen. Patient will possibly d/t to home today. Initialized on 10/31/16 03:03 - END OF NOTE
== END 2016-10-31 16:25 | disposition home or self-care (01) | DRG 908 ==
LOC: ED 08:53 → MEDSUR 12:45
PROVIDERS: ADMIT Family Medicine Adult Medicine; ATTEND Family Medicine Adult Medicine

== ENCOUNTER 2023-09-15 16:11 | Inpatient (IN) ==
[2023-09-15 16:53] LABS: Basophils # (Auto) 0.06 K/mcL (0.00-0.30); Basophils % (Auto) 0.4 % (0.0-2.0); Eosinophils # (Auto) 0.13 K/mcL (0.00-0.70); Eosinophils % (Auto) 0.8 % (0.0-7.0); Hematocrit 48.9 % (34.1-44.9); Hemoglobin 16.5 g/dL (11.2-15.7); Lymphocytes # (Auto) 4.28 K/mcL (1.50-4.80); Lymphocytes % (Auto) 27.6 % (15.5-49.0); Mean Cell Volume 85.6 fL (80.0-100.0); Mean Corpuscular HGB Conc 33.7 g/dL (31.0-36.0); Mean Platelet Volume 11.4 fL (8.8-12.5); Monocytes # (Auto) 0.86 K/mcL (0.10-0.90); Monocytes % (Auto) 5.6 % (1.0-12.0); Neutrophils % (Auto) 65.3 % (38.0-78.0); Platelet Count 304 K/mcL (140-440); RBC 5.71 M/mcL (3.59-5.38); Red Cell Distribution Width 13.3 % (11.5-14.5); WBC 15.5 K/mcL (4.5-11.0)
[2023-09-15 17:21] LABS: ALT/SGPT 45 U/L (<40); AST/SGOT 45 U/L (<32); Albumin 4.3 gm/dL (3.2-5.2); Albumin/Globulin Ratio 1.1 (1.0-2.3); Alkaline Phosphatase 105 U/L (39-117); Bilirubin,Total 1.8 mg/dL (0.1-1.0); Blood Urea Nitrogen 18 mg/dL (6-20); Calcium 9.5 mg/dL (8.6-10.4); Carbon Dioxide 20 mmol/L (22-30); Chloride 95 mmol/L (96-108); Globulin 3.9 gm/dL (2.2-3.7); Glomerular Filtration Rate 13; Glucose 169 mg/dL (70-105)
[2023-09-15] MEDS ORDERED: NITROGLYCERIN 0.4 MG TAB.SUBL SL PRN (17:22)
[2023-09-15] MEDS: 0.9 % SODIUM CHLORIDE 1,000 ML IV ONE ×3 (17:24→20:04)
[2023-09-15] MEDS: ASPIRIN 81 MG TAB.CHEW CHEWED ONE (18:09)
[2023-09-15] MEDS: POTASSIUM CHLORIDE 20 MEQ TABLET PO ONE (18:09)
[2023-09-15] MEDS: POTASSIUM CHLORIDE 20 MEQ in DEXTROSE 5% IN WATER 250 ML IV ONE (18:09)
[2023-09-15] MEDS: MAG HYDROX/AL HYDROX/SIMETH 30 ML ORAL.SUSP PO ONE (18:09)
[2023-09-15] MEDS: ONDANSETRON 4 MG/2 ML VIAL IV ONE (19:00)
[2023-09-15 19:24] LABS: Blood Urea Nitrogen 19 mg/dL (6-20); Calcium 8.9 mg/dL (8.6-10.4); Carbon Dioxide 19 mmol/L (22-30); Chloride 100 mmol/L (96-108); Glomerular Filtration Rate 13; Glucose 120 mg/dL (70-105)
[2023-09-15] MEDS: NOREPINEPHRINE BITARTRATE 8 MG in 0.9 % SODIUM CHLORIDE 242 ML IV SCH (19:38)
[2023-09-15] MEDS: cefTRIAXone 1 GM in DEXTROSE 5% IN WATER 50 ML IV ONE (20:04)
[2023-09-15] MEDS: 0.9 % SODIUM CHLORIDE 250 ML IV SCH (20:16)
[2023-09-15] MEDS: cefTRIAXone 2 GM in DEXTROSE 5% IN WATER 50 ML IV ONE (20:34)
[2023-09-15 21:18] LABS: INR 1.4 (0.9-1.1); Prothrombin Time 18.3 sec (11.9-14.5)
[2023-09-15] MEDS: 0.9 % SODIUM CHLORIDE 1,000 ML IV SCH (22:58)
[2023-09-15] MEDS: VANCOMYCIN 1,500 MG in 0.9 % SODIUM CHLORIDE 500 ML IV ONE (23:07)
[2023-09-15] MEDS: VANCOMYCIN PER PHARMACY IV ONE (23:12)
[2023-09-15] MEDS: MAGNESIUM SULFATE 2 GM/50 ML BAG IV ONE ×2 (23:15)
[2023-09-15] MEDS: ENOXAPARIN 30 MG/0.3 ML SYRINGE SQ SCH (23:16)
[2023-09-15] MEDS: 0.9 % SODIUM CHLORIDE 10 ML SYRINGE IV SCH (23:23)
[2023-09-15] MEDS: ENOXAPARIN 120 MG/0.8 ML SYRINGE ONE (23:23)
[2023-09-16 02:21] LABS: Amphetamine Screen,Urine Suspect positive; Barbiturate Screen,Urine None detected; Benzodiazepines Screen,Urine None detected; Cannabinoid Screen,Urine None detected; Cocaine Screen,Urine None detected; Opiate Screen,Urine None detected; Oxycodone, Urine Screen None detected; Phencyclidine Screen,Urine None detected
[2023-09-16 02:23] LABS: Appearance,Urine CLOUDY (Clear); Bilirubin,Urine Negative (Negative); Color,Urine AMBER; Culture Indicated,Urine No; Glucose,Urine (UA) Negative (Negative); Ketones,Urine Negative (Negative); Leukocyte Esterase,Urine 250 /uL (Negative); Mucus,Urine FEW /hpf; Nitrate,Urine Negative (Negative); Protein,Urine 100 mg/dL (Negative); Specific Gravity,Urine 1.015 (1.000-1.035); Urine Hyaline Cast 1 /lph (0-2); Urine RBC 7 /hpf (0-3); Urine Squamous Epithelial Cell 1 /hpf (0-4); Urine WBC 9 /hpf (0-4); Urobilinogen,Urine Negative
[2023-09-16 06:08] LABS: Basophils # (Auto) 0.04 K/mcL (0.00-0.30); Basophils % (Auto) 0.4 % (0.0-2.0); Eosinophils # (Auto) 0.26 K/mcL (0.00-0.70); Eosinophils % (Auto) 2.3 % (0.0-7.0); Hematocrit 41.7 % (34.1-44.9); Hemoglobin 13.9 g/dL (11.2-15.7); Lymphocytes % (Auto) 27.1 % (15.5-49.0); Mean Cell Volume 87.6 fL (80.0-100.0); Mean Corpuscular HGB Conc 33.3 g/dL (31.0-36.0); Mean Platelet Volume 11.8 fL (8.8-12.5); Neutrophils % (Auto) 62.9 % (38.0-78.0); Platelet Count 236 K/mcL (140-440); RBC 4.76 M/mcL (3.59-5.38); Red Cell Distribution Width 13.5 % (11.5-14.5); WBC 11.4 K/mcL (4.5-11.0)
[2023-09-16 06:35] LABS: Estimated Average Glucose(eAG) 117 mg/dL; Hemoglobin A1C 5.7 % Hgb (4.0-6.0)
[2023-09-16 06:42] LABS: ALT/SGPT 26 U/L (<40); AST/SGOT 29 U/L (<32); Albumin 3.4 gm/dL (3.2-5.2); Albumin/Globulin Ratio 1.1 (1.0-2.3); Alkaline Phosphatase 83 U/L (39-117); Bilirubin,Direct 0.3 mg/dL (<0.3); Bilirubin,Total 0.9 mg/dL (0.1-1.0); Blood Urea Nitrogen 19 mg/dL (6-20); Carbon Dioxide 19 mmol/L (22-30); Chloride 105 mmol/L (96-108); Globulin 3.1 gm/dL (2.2-3.7); Glomerular Filtration Rate 16; Glucose 130 mg/dL (70-105); Lactate Dehydrogenase 156 U/L (135-225); Phosphorous 4.7 mg/dL (2.5-4.5); Triglycerides 238 mg/dL (<150); Uric Acid 10.9 mg/dL (2.5-8.0)
[2023-09-16] MEDS: CYCLOBENZAPRINE 10 MG TABLET PO SCH (08:00)
[2023-09-16] MEDS ORDERED: VANCOMYCIN PER PHARMACY IV SCH (08:15)
[2023-09-16] MEDS: DULoxetine 30 MG CAPSULE PO SCH (08:42)
[2023-09-16] MEDS: busPIRone 5 MG TABLET PO SCH (08:42)
[2023-09-16] MEDS: POTASSIUM CHLORIDE 20 MEQ TABLET PO ONE (08:42)
[2023-09-16] MEDS: FAMOTIDINE 20 MG TABLET PO SCH (08:42)
[2023-09-16] MEDS: ONDANSETRON 4 MG/2 ML VIAL IV PRN (08:43)
[2023-09-16] MEDS: cefTRIAXone 2 GM in DEXTROSE 5% IN WATER 50 ML IV SCH (10:04)
[2023-09-16] MEDS: DAPTOmycin 500 MG VIAL IV SCH (10:04)
[2023-09-16] MEDS: HYDROmorphone 0.5 MG/0.5 ML SYRINGE IV PRN (10:34)
[2023-09-16 10:44] LABS: INR 1.1 (0.9-1.1); Prothrombin Time 15.1 sec (11.9-14.5)
[2023-09-16] MEDS: HEPARIN SOD,PORK IN 0.45% NACL 25,000 UNIT in PREMIX 1 BAG IV SCH ×2 (11:08→15:48)
[2023-09-16] MEDS: HEPARIN SOD,PORK IN 0.45% NACL 500 ML IV ONE (11:23)
[2023-09-16 16:24] LABS: Blood Urea Nitrogen 16 mg/dL (6-20); Calcium 7.9 mg/dL (8.6-10.4); Carbon Dioxide 22 mmol/L (22-30); Chloride 107 mmol/L (96-108); Glomerular Filtration Rate 27; Glucose 155 mg/dL (70-105)
[2023-09-16] MEDS: traMADol 50 MG TABLET PO SCH (17:16)
[2023-09-17] MEDS: HEPARIN SOD,PORK IN 0.45% NACL 500 ML IV ONE ×2 (03:50→17:30)
[2023-09-17 05:36] LABS: Basophils # (Auto) 0.04 K/mcL (0.00-0.30); Basophils % (Auto) 0.6 % (0.0-2.0); Eosinophils # (Auto) 0.25 K/mcL (0.00-0.70); Hematocrit 36.9 % (34.1-44.9); Hemoglobin 12.3 g/dL (11.2-15.7); Lymphocytes # (Auto) 2.47 K/mcL (1.50-4.80); Lymphocytes % (Auto) 39.3 % (15.5-49.0); Mean Cell Volume 89.1 fL (80.0-100.0); Mean Corpuscular HGB Conc 33.3 g/dL (31.0-36.0); Mean Platelet Volume 11.8 fL (8.8-12.5); Monocytes # (Auto) 0.54 K/mcL (0.10-0.90); Monocytes % (Auto) 8.6 % (1.0-12.0); Neutrophils % (Auto) 47.3 % (38.0-78.0); Platelet Count 193 K/mcL (140-440); RBC 4.14 M/mcL (3.59-5.38); Red Cell Distribution Width 13.9 % (11.5-14.5); WBC 6.3 K/mcL (4.5-11.0)
[2023-09-17 06:17] LABS: ALT/SGPT 25 U/L (<40); AST/SGOT 29 U/L (<32); Albumin 3.2 gm/dL (3.2-5.2); Albumin/Globulin Ratio 1.2 (1.0-2.3); Alkaline Phosphatase 73 U/L (39-117); Bilirubin,Total 0.4 mg/dL (0.1-1.0); Blood Urea Nitrogen 13 mg/dL (6-20); Calcium 8.1 mg/dL (8.6-10.4); Carbon Dioxide 22 mmol/L (22-30); Chloride 109 mmol/L (96-108); Globulin 2.7 gm/dL (2.2-3.7); Glomerular Filtration Rate 49; Glucose 118 mg/dL (70-105)
[2023-09-17] MEDS: POTASSIUM CHLORIDE 20 MEQ TABLET PO SCH (07:48)
[2023-09-17] MEDS: oxyCODONE/APAP 5/325MG TABLET PO PRN (14:23)
[2023-09-17] MEDS: HEPARIN SOD,PORK IN 0.45% NACL 25,000 UNIT in PREMIX 1 BAG IV SCH (17:18)
[2023-09-17 18:43] LABS: Blood Urea Nitrogen 10 mg/dL (6-20); Calcium 7.3 mg/dL (8.6-10.4); Carbon Dioxide 23 mmol/L (22-30); Chloride 107 mmol/L (96-108); Glomerular Filtration Rate 60; Glucose 162 mg/dL (70-105)
[2023-09-17] MEDS: MAG HYDROX/AL HYDROX/SIMETH 30 ML ORAL.SUSP PO SCH (18:55)
[2023-09-17] MEDS: MAGNESIUM SULFATE 2 GM/50 ML BAG IV SCH (19:44)
[2023-09-18 06:12] LABS: ALT/SGPT 26 U/L (<40); AST/SGOT 42 U/L (<32); Albumin 3.1 gm/dL (3.2-5.2); Albumin/Globulin Ratio 1.1 (1.0-2.3); Alkaline Phosphatase 69 U/L (39-117); Bilirubin,Total 0.6 mg/dL (0.1-1.0); Blood Urea Nitrogen 8 mg/dL (6-20); Calcium 8.3 mg/dL (8.6-10.4); Carbon Dioxide 24 mmol/L (22-30); Chloride 106 mmol/L (96-108); Globulin 2.8 gm/dL (2.2-3.7); Glomerular Filtration Rate 76; Glucose 98 mg/dL (70-105)
[2023-09-18 06:25] LABS: Basophils # (Auto) 0.04 K/mcL (0.00-0.30); Basophils % (Auto) 0.7 % (0.0-2.0); Eosinophils # (Auto) 0.25 K/mcL (0.00-0.70); Eosinophils % (Auto) 4.5 % (0.0-7.0); Hematocrit 36.3 % (34.1-44.9); Lymphocytes # (Auto) 2.11 K/mcL (1.50-4.80); Lymphocytes % (Auto) 38.4 % (15.5-49.0); Mean Corpuscular HGB Conc 33.1 g/dL (31.0-36.0); Mean Platelet Volume 12.3 fL (8.8-12.5); Monocytes # (Auto) 0.42 K/mcL (0.10-0.90); Monocytes % (Auto) 7.6 % (1.0-12.0); Neutrophils % (Auto) 48.6 % (38.0-78.0); Platelet Count 191 K/mcL (140-440); RBC 4.08 M/mcL (3.59-5.38); Red Cell Distribution Width 13.7 % (11.5-14.5); WBC 5.5 K/mcL (4.5-11.0)
[2023-09-18] MEDS: RIVAROXABAN 20 MG TABLET PO SCH (07:58)
[2023-09-18] MEDS: HEPARIN SOD,PORK IN 0.45% NACL 25,000 UNIT in PREMIX 1 BAG IV SCH (08:11)
[2023-09-18] MEDS: CEFDINIR 300 MG CAPSULE PO SCH (08:32)
[2023-09-18] MEDS: POTASSIUM CHLORIDE 20 MEQ TABLET PO ONE (10:27)
[2023-09-19 06:39] LABS: Basophils # (Auto) 0.02 K/mcL (0.00-0.30); Basophils % (Auto) 0.4 % (0.0-2.0); Eosinophils # (Auto) 0.23 K/mcL (0.00-0.70); Eosinophils % (Auto) 4.4 % (0.0-7.0); Hematocrit 36.6 % (34.1-44.9); Hemoglobin 12.3 g/dL (11.2-15.7); Lymphocytes # (Auto) 2.12 K/mcL (1.50-4.80); Mean Cell Volume 88.6 fL (80.0-100.0); Mean Corpuscular HGB Conc 33.6 g/dL (31.0-36.0); Monocytes # (Auto) 0.35 K/mcL (0.10-0.90); Monocytes % (Auto) 6.8 % (1.0-12.0); Neutrophils % (Auto) 47.2 % (38.0-78.0); Platelet Count 196 K/mcL (140-440); RBC 4.13 M/mcL (3.59-5.38); Red Cell Distribution Width 13.5 % (11.5-14.5); WBC 5.2 K/mcL (4.5-11.0)
[2023-09-19 06:59] LABS: ALT/SGPT 30 U/L (<40); AST/SGOT 58 U/L (<32); Albumin 3.3 gm/dL (3.2-5.2); Albumin/Globulin Ratio 1.2 (1.0-2.3); Alkaline Phosphatase 68 U/L (39-117); Bilirubin,Total 0.5 mg/dL (0.1-1.0); Blood Urea Nitrogen 8 mg/dL (6-20); Calcium 8.8 mg/dL (8.6-10.4); Carbon Dioxide 26 mmol/L (22-30); Chloride 106 mmol/L (96-108); Globulin 2.8 gm/dL (2.2-3.7); Glomerular Filtration Rate 76; Glucose 82 mg/dL (70-105)
== END 2023-09-19 11:31 | disposition home or self-care (01) | DRG 871 ==
LOC: ED 16:11 → ICU 21:41
PROVIDERS: ADMIT Internal Medicine; ATTEND Student in an Organized Health Care Education/Training Program